=== PATIENT | female | born 1985 | race Asian ===

== ENCOUNTER 2017-04-21 22:20 | Emergency (ER) | payer OTHER ==
[~2017-04-21] VITALS: Ht 152.4 cm; Wt 68.0 kg
[~2017-04-21 22:20] MED LIST: ACHYD1T PO; CYCL10TA9 PO; DCS100C PO; HYDR-3062 PO; IBP800T PO; OXYC1TAB12 PO; PRD20T PO; PREN1TAB19 PO; TRAM50TA2 PO
--- OUTSIDE RECORDS SUMMARY | 2017-04-21 22:25 | XMS REPORT | Continuity of Care Document ---
Author Author [facility] Organization [facility] Address Unknown Phone Unavailable Allergies Active Description Code Type Severity Reaction Onset Reported/Identified Relationship to Patient Clinical Status Yes No Known Drug Allergies [id number] Drug Allergy Unknown N/ A 12/15/2014 Medications Problems Date Dx Coded Attending Type Code Diagnosis Diagnosed By 12/15/2014 Ot 644.03 12/15/2014 Ot 654.23 12/28/2014 Ot 654.21 12/28/2014 Ot V04.81 12/28/2014 Ot V06.1 12/28/2014 Ot V27.0 07/27/2015 RAÚL ATKINSON Ot M67.431 07/27/2015 RAÚL ATKINSON Ot M79.601 08/05/2015 STEWART CEJA MD Ot M67.431 08/05/2015 STEWART CEJA MD Ot Z11.2 11/09/2015 STEWART CEJA MD Ot M67.431 11/09/2015 STEWART CEJA MD Ot Z01.818 Procedures Results Encounters ACCT No. Visit Date/Time Discharge Status Pt. Type Provider Facility Loc./Unit Complaint [id number] 08/05/2015 11:00:00 2014 17:25:00 DIS Outpatient STEWART CEJA MD [facility] [id number] 08/04/2015 10:46:00 2014 23:59:59 CLS Outpatient STEWART CEJA MD [facility] PREOP [id number] 07/27/2015 21:59:00 2014 23:47:00 DIS Emergency RAÚL ATKINSON [facility] ER [id number] 12/26/2014 12:05:00 Document Registration [id number] 12/15/2014 10:57:00 Document Registration
--- NOTE | 2017-04-21 22:47 | ED Upper Extremity ---
General Chief Complaint: Upper Extremity Stated Complaint: LT HAND PAIN Nursing Triage Note: c/o L hand and thumb pain x 2 weeks, denies injury Nursing Sepsis Screen: No Definite Risk Source: patient Exam Limitations: no limitations History of Present Illness Time seen by provider: 22:45 Initial Comments To ER with tenderness and pain with extension of the left thumb. This is been present for 2 weeks and she denies any known injury. She denies fevers chills or swelling. She does report that there is a lump that appeared to the IP joint of the flexor surface of the thumb but it has resolved. Onset: last week Severity: mild Pain/Injury Location: left thumb Method of Injury: unknown Modifying Factors: Worse With Movement Allergies and Home Medications Allergies Coded Allergies: No Known Drug Allergies (Unverified , 12/15/14) Home Medications No Active Prescriptions or Reported Meds Constitutional: see HPI EENTM: see HPI Respiratory: no symptoms reported Cardiovascular: no symptoms reported Genitourinary: no symptoms reported Musculoskeletal: see HPI Skin: no symptoms reported Psychiatric/Neurological: No Symptoms Reported Past Mrvfomn-Gabmrt-Yqqpte Hx Patient Social History Alcohol Use: Denies Use Recreational Drug Use: No Smoking Status: Never a Smoker Recent Foreign Travel: No Contact w/Someone Who Travel: No Recent Infectious Disease Expo: No Immunizations Up To Date Date of Influenza Vaccine: Jul 06, 2015 Seasonal Allergies Seasonal Allergies: No Surgeries HX Surgeries: Yes Surgeries: Section Respiratory Hx Respiratory Disorders: No Cardiovascular Hx Cardiac Disorders: No Neurological Hx Neurological Disorders: No Reproductive System Hx Reproductive Disorders: No Genitourinary Hx Genitourinary Disorders: No Gastrointestinal Hx Gastrointestinal Disorders: No Musculoskeletal Hx Musculoskeletal Disorders: No Endocrine Hx Endocrine Disorders: No HEENT HX ENT Disorders: No Cancer Hx Cancer: No Psychosocial Hx Psychiatric Problems: No Integumentary HX Skin/Integumentary Disorder: No Blood Transfusions Hx Blood Disorders: No Adverse Reaction to a Blood Tr: No Family Medical History Family Medial History: Cardiovascular disease Diabetes mellitus 19 MOTHER Hypertension 19 FATHER No Family History of: AIDS Abdominal aortic aneurysm Julian's disease Alcoholism Alzheimer's disease Aphasia Arthritis Asthma Cancer of mouth Cataracts Colon cancer Completed stroke Congenital disease Congenital heart disease Coronary thrombosis Cystic fibrosis Deafness or hearing loss Dementia Drug abuse Dysphasia Fibrocystic disease of breast Gastroenteritis Glaucoma Headache disorder Hypercholesterolemia Infertility Kidney disease Myocardial infarction Neoplasm Not obtainable due to adoption Osteoporosis Parkinson's disease Prostate cancer Psychosocial problem Respiratory disorder Seizure disorder Severe allergy Thyroid disease Tuberculosis Visual disorder Physical Exam Vital Signs Vital Sign - Last 12Hours 04/21/17 22:30 Temp 98.9 Pulse 100 Resp 18 B/P (MAP) 132/93 Pulse Ox 98 Capillary Refill : Less Than 3 Seconds General Appearance: WD/WN, no apparent distress HEENT: PERRL/EOMI, normal ENT inspection Neck: non-tender, full range of motion Respiratory: no respiratory distress, no accessory muscle use Gastrointestinal: normal bowel sounds, non tender, soft Shoulder: normal inspection, non-tender Elbow/Forearm: normal inspection, non-tender, Left Wrist: Yes normal inspection, Yes no evidence of injury Hand: Left, soft tissue tenderness (there is no deformity or joint laxity of the thumb. There is no swelling erythema or ecchymosis. With extension of the thumb she complains of pain to the radial side of the thenar eminence.) Neurologic/Psychiatric: alert, normal mood/affect, oriented x 3 Skin: normal color, warm/dry Progress/Results/Core Measures Results/Orders My Orders Orders - NAOMI MCKEON APRN Hand, Left, 3 Views (04/21/17 22:45) Vital Signs/I&O Vital Sign - Last 12Hours 04/21/17 22:30 Temp 98.9 Pulse 100 Resp 18 B/P (MAP) 132/93 Pulse Ox 98 Blood Pressure Mean: 106 Departure Impression Impression: Primary Impression: Tenosynovitis of thumb Disposition: 01 HOME, SELF-CARE Condition: Stable Departure-Patient Inst. Decision time for Depature: 22:55 Referrals: RIMA RIOS MD, JONATHAN MD IPSEN, BRIAN J MD NO,LOCAL PHYSICIAN (PCP) Primary Care Physician ELO ZAVALA MD, MICHAEL P MD Patient Instructions: NO INSTRUCTIONS GIVEN Add. Discharge Instructions: 1. Follow-up with one of the orthopedic surgeons listed if your pain does not improve in 2 weeks 2. Anti-inflammatories as directed 3. Wear the splint as directed at all times except when showering for the next 2 weeks All discharge instructions reviewed with patient and/or family. Voiced understanding. Scripts Naproxen (Naprosyn) 500 Mg Tablet 500 MG PO BID Y for PAIN-MODERATE, #30 TAB Prov: NAOMI MCKEON APRN 04/21/17 NAOMI MCKEON APRN Apr 21, 2017 22:47
[2017-04-21] MEDS ORDERED: NAPR500T PO (22:57)
[2017-04-21 23:10] VITALS: BP 132/93
--- NOTE | 2017-04-22 06:48 | Diagnostic Imaging Report ---
INDICATION: Left hand pain. FINDINGS: 3 views show no fractures or dislocations. No significant degenerative changes noted. Articulating surfaces are smooth. Radiocarpal joint in good alignment. No evidence of osteonecrosis. IMPRESSION: Normal left hand. Dictated by: Dictated on workstation # [id number]
== END 2017-04-21 23:12 | disposition home or self-care (01) ==
LOC: EDUNIT# 22:20 → ER 22:22
DX: M79.645 Pain in left finger(s) (principal)
CPT/HCPCS: 73130; 99282

== ENCOUNTER 2017-08-17 22:26 | Emergency (ER) | payer OTHER ==
[~2017-08-17] VITALS: Ht 160 cm; Wt 72.6 kg
[~2017-08-17 22:26] MED LIST changes: +NAPR500T PO
[2017-08-17] MEDS ORDERED: FAMOTIDINE 20MG/2ML IV (PEPCID) IV STA (23:37)
[2017-08-17] MEDS ORDERED: LACTATED RINGERS 1,000 ML IV ONE (23:37)
[2017-08-17] MEDS ORDERED: ONDANSETRON 4 MG/2 ML (SDV) Z0FRAN IVP ONE (23:45)
[2017-08-17] MEDS ORDERED: NS 100 ML (IVPB) BAG IV ONE (23:45)
[2017-08-17] MEDS ORDERED: IOHEXOL 350 MG/ML 100 ML (OMNIPAQUE 350) VIAL IV ONE (23:45)
[2017-08-18 00:03] LABS: BILIRUBIN,URINE NEGATIVE (NEGATIVE); KETONES,URINE NEGATIVE (NEGATIVE); LEUKOCYTE ESTERASE ,URINE 2+ (NEGATIVE); NITRITE,URINE NEGATIVE (NEGATIVE); PH,URINE 6 (5-9); PROTEIN,URINE NEGATIVE (NEGATIVE); UROBILINOGEN,URINE NORMAL (NORMAL)
[2017-08-18 00:07] LABS: WBC,URINE 0-2 /HPF
[2017-08-18 00:10] LABS: BASOPHILS # (AUTO) 0.1 10^3/uL (0.0-0.1); BASOPHILS % (AUTO) 1 % (0-10); EOSINOPHILS # (AUTO) 0.1 10^3/uL (0.0-0.3); EOSINOPHILS % (AUTO) 2 % (0-10); LYMPHOCYTES # (AUTO) 4.1 X 10^3 (1.0-4.0); LYMPHOCYTES % (AUTO) 43 % (12-44); MEAN CORPUSCULAR HEMOGLOBIN 29 PG (25-34); MEAN CORPUSCULAR HGB CONC 35 G/DL (32-36); MEAN CORPUSCULAR VOLUME 81 FL (80-99); MEAN PLATELET VOLUME 8.7 FL (7.4-10.4); MONOCYTES # (AUTO) 0.6 X 10^3 (0.0-1.0); MONOCYTES % (AUTO) 6 % (0-12); NEUTROPHILS # (AUTO) 4.5 X 10^3 (1.8-7.8); NEUTROPHILS % (AUTO) 48 % (42-75); PLATELET COUNT 435 10^3/uL (130-400); RED BLOOD COUNT 4.96 10^6/uL (4.35-5.85); RED CELL DISTRIBUTION WIDTH 12.9 % (10.0-14.5); WHITE BLOOD COUNT 9.3 10^3/uL (4.3-11.0)
[2017-08-18 00:32] LABS: ALANINE AMINOTRANSFERASE 15 U/L (0-55); ALBUMIN 4.1 GM/DL (3.2-4.5); AMYLASE 76 U/L (25-125); ANION GAP 8 MMOL/L (5-14); ASPARTATE AMINO TRANSFERASE 17 U/L (5-34); BILIRUBIN,TOTAL 0.5 MG/DL (0.1-1.0); BLOOD UREA NITROGEN 8 MG/DL (7-18); BUN/CREATININE RATIO 11; CALCIUM 8.9 MG/DL (8.5-10.1); CARBON DIOXIDE 24 MMOL/L (21-32); CHLORIDE 105 MMOL/L (98-107); CREATININE SERUM 0.73 MG/DL (0.60-1.30); GFR ESTIMATED > 60; GLUCOSE 94 MG/DL (70-105); LIPASE 60 U/L (8-78); POTASSIUM 3.4 MMOL/L (3.6-5.0); SODIUM 137 MMOL/L (135-145)
[2017-08-18] MEDS ORDERED: PROMETHAZINE INJ 25 MG/ML (PHENERGAN) AMP IVP ONE (02:15)
[2017-08-18] MEDS ORDERED: diphenhydrAMINE 50 MG/ML INJ (BENADRYL) IVP ONE (02:15)
[2017-08-18] MEDS ORDERED: HYOSCYAMINE 0.125 MG (LEVSIN) TAB PO ONE (02:15)
[2017-08-18] MEDS ORDERED: HYOS0.1283 SL (02:23)
[2017-08-18] MEDS ORDERED: ONDA4TAB8 PO (02:23)
--- NOTE | 2017-08-18 02:23 | ED Abdominal Pain ---
General Chief Complaint: Abdominal/GI Problems Stated Complaint: ABD PAIN Nursing Triage Note: ABD PAIN BEGAN AT 2100 THIS EVENING. Sepsis Screen: No Definite Risk Allergies and Home Medications Allergies Coded Allergies: No Known Drug Allergies (Unverified , 12/15/14) Home Medications Hyoscyamine Sulfate 0.125 Mg Tab.subl, 1-2 TAB SL Q4H, #15 Prescribed by: DIMITRY COLON on 08/18/17 0223 Naproxen 500 Mg Tablet, 500 MG PO BID PRN for PAIN-MODERATE, #30 Prescribed by: NAOMI MCKEON on 04/21/17 2257 Ondansetron 4 Mg Tab.rapdis, 4 MG PO Q4H, #10 Prescribed by: DIMITRY COLON on 08/18/17 0223 Past Mfklyad-Wtynqh-Uiwpcv Hx Patient Social History Alcohol Use: Denies Use Recreational Drug Use: No Smoking Status: Never a Smoker Recent Foreign Travel: No Contact w/Someone Who Travel: No Recent Infectious Disease Expo: No Recent Hopitalizations: No Immunizations Up To Date Date of Influenza Vaccine: Jul 06, 2015 Seasonal Allergies Seasonal Allergies: No Surgeries History of Surgeries: Yes Surgeries: Section Respiratory History of Respiratory Disorde: No Cardiovascular History of Cardiac Disorders: No Neurological History of Neurological Disord: No Reproductive System : No Last Menstrual Period: Jul 27, 2017 Hx Reproductive Disorders: No Genitourinary History of Genitourinary Disor: No Gastrointestinal History of Gastrointestinal Di: No Musculoskeletal History of Musculoskeletal Dis: No Endocrine History of Endocrine Disorders: No HEENT History of HEENT Disorders: No Cancer History of Cancer: No Psychosocial History of Psychiatric Problem: No Integumentary History of Skin or Integumenta: No Blood Transfusions History of Blood Disorders: No Adverse Reaction to a Blood Tr: No Family Medical History Family Medial History: Cardiovascular disease Diabetes mellitus 19 MOTHER Hypertension 19 FATHER No Family History of: AIDS Abdominal aortic aneurysm Alan's disease Alcoholism Alzheimer's disease Aphasia Arthritis Asthma Cancer of mouth Cataracts Colon cancer Completed stroke Congenital disease Congenital heart disease Coronary thrombosis Cystic fibrosis Deafness or hearing loss Dementia Drug abuse Dysphasia Fibrocystic disease of breast Gastroenteritis Glaucoma Headache disorder Hypercholesterolemia Infertility Kidney disease Myocardial infarction Neoplasm Not obtainable due to adoption Osteoporosis Parkinson's disease Prostate cancer Psychosocial problem Respiratory disorder Seizure disorder Severe allergy Thyroid disease Tuberculosis Visual disorder Physical Exam Vital Signs VS - Last 72 Hours, by Label 08/17/17 23:21 Temp 98.1 Pulse 78 Resp 20 B/P (MAP) 120/81 Pulse Ox 98 O2 Delivery Room Air Capillary Refill : Less Than 3 Seconds Progress/Results/Core Measures Results/Orders Lab Results Laboratory Tests Test 08/17/17 23:30 08/17/17 23:55 Range/Units Urine Color YELLOW Urine Clarity CLEAR Urine pH 6 5-9 Urine Specific Continental 1.010 L 1.016-1.022 Urine Protein NEGATIVE NEGATIVE Urine Glucose (UA) NEGATIVE NEGATIVE Urine Ketones NEGATIVE NEGATIVE Urine Nitrite NEGATIVE NEGATIVE Urine Bilirubin NEGATIVE NEGATIVE Urine Urobilinogen NORMAL NORMAL MG/DL Urine Leukocyte Esterase 2+ H NEGATIVE Urine RBC (Auto) NEGATIVE NEGATIVE Urine RBC NONE /HPF Urine WBC 0-2 /HPF Urine Squamous Epithelial Cells 10-25 H /HPF Urine Crystals NONE /LPF Urine Bacteria TRACE /HPF Urine Casts NONE /LPF Urine Mucus NEGATIVE /LPF Urine Culture Indicated NO White Blood Count 9.3 4.3-11.0 10^3/uL Red Blood Count 4.96 4.35-5.85 10^6/uL Hemoglobin 14.2 11.5-16.0 G/DL Hematocrit 40 35-52 % Mean Corpuscular Volume 81 80-99 FL Mean Corpuscular Hemoglobin 29 25-34 PG Mean Corpuscular Hemoglobin Concent 35 32-36 G/DL Red Cell Distribution Width 12.9 10.0-14.5 % Platelet Count 435 H 130-400 10^3/uL Mean Platelet Volume 8.7 7.4-10.4 FL Neutrophils (%) (Auto) 48 42-75 % Lymphocytes (%) (Auto) 43 12-44 % Monocytes (%) (Auto) 6 0-12 % Eosinophils (%) (Auto) 2 0-10 % Basophils (%) (Auto) 1 0-10 % Neutrophils # (Auto) 4.5 1.8-7.8 X 10^3 Lymphocytes # (Auto) 4.1 H 1.0-4.0 X 10^3 Monocytes # (Auto) 0.6 0.0-1.0 X 10^3 Eosinophils # (Auto) 0.1 0.0-0.3 10^3/uL Basophils # (Auto) 0.1 0.0-0.1 10^3/uL Sodium Level 137 135-145 MMOL/L Potassium Level 3.4 L 3.6-5.0 MMOL/L Chloride Level 105 98-107 MMOL/L Carbon Dioxide Level 24 21-32 MMOL/L Anion Gap 8 5-14 MMOL/L Blood Urea Nitrogen 8 7-18 MG/DL Creatinine 0.73 0.60-1.30 MG/DL Estimat Glomerular Filtration Rate > 60 BUN/Creatinine Ratio 11 Glucose Level 94 70-105 MG/DL Calcium Level 8.9 8.5-10.1 MG/DL Total Bilirubin 0.5 0.1-1.0 MG/DL Aspartate Amino Transf (AST/SGOT) 17 5-34 U/L Alanine Aminotransferase (ALT/SGPT) 15 0-55 U/L Alkaline Phosphatase 78 40-136 U/L Total Protein 7.0 6.4-8.2 GM/DL Albumin 4.1 3.2-4.5 GM/DL Amylase Level 76 25-125 U/L Lipase 60 8-78 U/L Serum Test, Qualitative NEGATIVE NEGATIVE My Orders Orders - DIMITRY COLON DO Saline Lock/Iv-Start (08/17/17 23:37) Amylase (08/17/17 23:37) Cbc With Automated Diff (08/17/17 23:37) Comprehensive Metabolic Panel (08/17/17 23:37) Hcg,Qualitative Serum (08/17/17 23:37) Lipase (08/17/17 23:37) Ua Culture If Indicated (08/17/17 23:37) Ondansetron Injection (Zofran Injectio (08/17/17 23:45) Famotidine Injection (Pepcid Injection) (08/17/17 23:37) Saline Lock/Iv-Start (08/17/17 23:37) Lactated Ringers (Lr 1000 Ml Iv Solution (08/17/17 23:37) Iohexol Injection (Omnipaque 350 Mg/Ml 1 (08/17/17 23:45) Ns (Ivpb) (Sodium Chloride 0.9% Ivpb Bag (08/17/17 23:45) Pharmacy Communication (Pharmacy Communi (08/17/17 23:44) Ct Abdomen/Pelvis W (08/18/17 00:01) Hyoscyamine Sl Tablet (Levsin Sl Tablet) (08/18/17 02:15) Promethazine Injection (Phenergan Injec (08/18/17 02:15) Diphenhydramine Injection (Benadryl Inje (08/18/17 02:15) Medications Given in ED Current Medications Medications Dose Ordered Sig/Genevieve Route Start Time Stop Time Status Last Admin Dose Admin Diphenhydramine HCl 25 mg ONCE ONCE IVP 08/18/17 02:15 08/18/17 02:16 DC 08/18/17 02:18 25 MG Hyoscyamine Sulfate 0.25 mg ONCE ONCE PO 08/18/17 02:15 08/18/17 02:16 DC 08/18/17 02:20 0.25 MG Iohexol 100 ml ONCE ONCE IV 08/17/17 23:45 08/17/17 23:46 DC 08/18/17 00:57 100 ML Lactated Ringer's 1,000 ml @ 0 mls/hr Q0M ONCE IV 08/17/17 23:37 08/17/17 23:40 DC 08/17/17 23:57 0 MLS/HR Ondansetron HCl 4 mg ONCE ONCE IVP 08/17/17 23:45 08/17/17 23:46 DC 08/17/17 23:57 4 MG Promethazine HCl 25 mg ONCE ONCE IVP 08/18/17 02:15 08/18/17 02:16 DC 08/18/17 02:20 25 MG Sodium Chloride 100 ml ONCE ONCE IV 08/17/17 23:45 08/17/17 23:46 DC 08/18/17 00:57 80 ML Vital Signs/I&O Vital Sign - Last 12Hours 08/17/17 23:21 Temp 98.1 Pulse 78 Resp 20 B/P (MAP) 120/81 Pulse Ox 98 O2 Delivery Room Air Blood Pressure Mean: [address] ABDOMEN/PELVIS--NO ACUTE PROCESS, 1.6 CM RIGHT OVARIAN CYST--PER [facility] VIA FAX @ [phone] Reviewed: Reviewed by Me Departure Impression Impression: Primary Impression: Acute gastroenteritis Disposition: 01 HOME, SELF-CARE Condition: Stable Departure-Patient Inst. Referrals: [facility] (PCP/Family) Primary Care Physician Patient Instructions: Viral Gastroenteritis, Adult (DC) Add. Discharge Instructions: CLEAR LIQUIDS --WATER, BROTH, JELLO, GATORADE IF YOU ARE FEELING BETTER TOMORROW, ADD BRATS DIET TO CLEAR LIQUIDS--BANANAS, RICE, APPLESAUCE, TOAST, SALTINES FOLLOW UP WITH [facility] IN 1-2 DAYS IF NO BETTER RETURN TO ER IF WORSE All discharge instructions reviewed with patient and/or family. Voiced understanding. Scripts Hyoscyamine Sulfate (Levsin-Sl) 0.125 Mg Tab.subl 1-2 TAB SL Q4H for Abdominal Pain, #15 TAB Prov: DIMITRY COLON DO 08/18/17 Ondansetron (Zofran Odt) 4 Mg Tab.rapdis 4 MG PO Q4H for Nausea/Vomiting, #10 TAB Prov: DIMITRY COLON DO 08/18/17 Work/School Note: School/Childcare Release Date Seen in the Emergency Department: Aug 17, 2017 DIMITRY COLON DO Aug 18, 2017 02:23
[2017-08-18 03:30] VITALS: BP 136/69
--- NOTE | 2017-08-18 07:03 | Diagnostic Imaging Report ---
PROCEDURE: CT abdomen and pelvis with contrast. TECHNIQUE: Multiple contiguous axial images were obtained through the abdomen and pelvis after administration of intravenous contrast. INDICATION: Abdominal pain for three hours. COMPARISON STUDIES: None. FINDINGS: The lung bases are clear. There is diffuse fatty metamorphosis of the liver with no focal abnormalities. The gallbladder is contracted. The spleen, pancreas, adrenal glands and kidneys are normal. The vascular structures appear normal. The uterus and adnexal structures appear unremarkable. Small ovarian cyst are present. The appendix and bowel loops appear normal. Stomach is decompressed. There is no ascites, free air or abnormal adenopathy. Osseous structures are normal. IMPRESSION: There is fatty infiltration of liver with no acute findings. The findings agree with [facility] report. Dictated by: Dictated on workstation # [id number]
--- OUTSIDE RECORDS SUMMARY | 2017-08-18 08:58 | XMS REPORT | Continuity of Care Document ---
Author Author [facility] Organization [facility] Address Unknown Phone Unavailable Allergies Active Description Code Type Severity Reaction Onset Reported/Identified Relationship to Patient Clinical Status Yes No Known Drug Allergies [id number] Drug Allergy Unknown N/ A 12/15/2014 Medications Problems Date Dx Coded Attending Type Code Diagnosis Diagnosed By 12/15/2014 Ot 644.03 THRT LENIN LABOR-ANTEPART 12/15/2014 Ot 654.23 PREV DELIVERY, ANTEPARTUM COND 12/28/2014 Ot 654.21 PREV DELIVRY W/ OR W/O MENT ANT 12/28/2014 Ot V04.81 ND FOR PROPHYLACTIC VACCIN AND INOCULATI 12/28/2014 Ot V06.1 [id number], COMBINED [ 12/28/2014 Ot V27.0 DELIVER-SINGLE LIVEBORN 07/27/2015 RAÚL ATKINSON Ot M67.431 GANGLION, RIGHT WRIST 07/27/2015 RAÚL ATKINSON Ot M79.601 PAIN IN RIGHT ARM 08/05/2015 STEWART CEJA MD Ot M67.431 GANGLION, RIGHT WRIST 08/05/2015 STEWART CEJA MD Ot Z11.2 ENCOUNTER FOR SCREENING FOR OTHER BACTER 11/09/2015 STEWART CEJA MD Ot M67.431 11/09/2015 STEWART CEJA MD Ot Z01.818 04/21/2017 STEWART CEJA MD Ot M67.431 GANGLION, RIGHT WRIST 04/21/2017 STEWART CEJA MD Ot Z01.818 ENCOUNTER FOR OTHER PREPROCEDURAL EXAMIN 04/21/2017 NAOMI MCKEON APRN Ot M65.9 SYNOVITIS AND TENOSYNOVITIS, UNSPECIFIED 04/21/2017 NAOMI MCKEON POCKET MARKER Ot M79.645 PAIN IN LEFT FINGER(S) 04/21/2017 STEWART CEJA MD Ot M67.431 GANGLION, RIGHT WRIST 04/21/2017 STEWART CEJA MD Ot Z01.818 ENCOUNTER FOR OTHER PREPROCEDURAL EXAMIN 04/25/2017 NAOMI MCKEON APRN Ot M65.9 SYNOVITIS AND TENOSYNOVITIS, UNSPECIFIED 04/25/2017 NAOMI MCKEON APRN Ot M79.645 PAIN IN LEFT FINGER(S) 04/26/2017 STEWART CEJA MD Ot M67.431 GANGLION, RIGHT WRIST 04/26/2017 STEWART CEJA MD Ot Z01.818 ENCOUNTER FOR OTHER PREPROCEDURAL EXAMIN 2017 STEWART CEJA MD, Ot M67.431 GANGLION, RIGHT WRIST 2017 STEWART CEJA MD Ot Z01.818 ENCOUNTER FOR OTHER PREPROCEDURAL EXAMIN 07/19/2017 STEWART CEJA MD, Ot M67.431 GANGLION, RIGHT WRIST 07/19/2017 STEWART CEJA MD Ot Z01.818 ENCOUNTER FOR OTHER PREPROCEDURAL EXAMIN Procedures Code Description Performed By Performed On 72.9 INSTRUMENT DELIVERY NOS 12/26/2014 74.1 LOW CERVICAL 12/26/2014 Results Encounters ACCT No. Visit Date/Time Discharge Status Pt. Type Provider Facility Loc./Unit Complaint [id number] 04/21/2017 22:22:00 2016 23:12:00 DIS Emergency NAOMI MCKEON APRN [facility] ER LT HAND PAIN [id number] 08/05/2015 11:00:00 2014 17:25:00 DIS Outpatient STEWART CEJA MD [facility] SDC GANGLION CYST RIGHT WRIST [id number] 08/04/2015 10:46:00 2014 23:59:59 CLS Outpatient STEWART CEJA MD [facility] PREOP GANGLION CYST RIGHT WRIST [id number] 07/27/2015 21:59:00 2014 23:47:00 DIS Emergency RAÚL ATKINSON [facility] ER RT ARM PAIN [id number] 12/26/2014 12:05:00 Document Registration [id number] 12/15/2014 10:57:00 Document Registration
== END 2017-08-18 03:30 | disposition home or self-care (01) ==
LOC: EDUNIT# 22:26 → ER 22:27
DX: K52.9 Noninfective gastroenteritis and colitis, unspecified (principal); K76.0 Fatty (change of) liver, not elsewhere classified
CPT/HCPCS: 36415; 74177; 80053; 81000; 82150; 83690; 84703; 85025

== ENCOUNTER 2017-09-17 02:17 | Emergency (ER) | payer OTHER ==
[~2017-09-17] VITALS: Ht 160 cm; Wt 72.6 kg
[~2017-09-17 02:17] MED LIST changes: +CEFD300C3 PO; +HYOS0.1283 SL; +OMEP40CA36 PO; +ONDA4TAB8 PO; +ONDA8TAB13 PO; +SUCR1ORA5 PO
[2017-09-17] MEDS ORDERED: diphenhydrAMINE 50 MG/ML INJ (BENADRYL) IM ONE (02:45)
[2017-09-17] MEDS ORDERED: methylPREDNISolone 125 MG (Solu-MEDROL) VIAL IM ONE (02:45)
[2017-09-17] MEDS ORDERED: FAMOTIDINE 20 MG (PEPCID) TABLET PO ONE (02:45)
--- NOTE | 2017-09-17 02:50 | ED Integumentary General ---
General Chief Complaint: Allergic Reaction Stated Complaint: WHOLE BODY RASH Nursing Triage Note: GENERALIZED ITCHING SINCE 2200. UNKNOWN CAUSE Source: patient History of Present Illness Time seen by provider: 02:38 Initial Comments C/O VERY ITCHY RASH ALL OVER BODY SINCE WAKING AT 2200 LILI THINKS IS FROM SOMETHING SHE ATE AT[facility] [employer] [facility]--HAS NOT EATEN AT THIS RESTAUR[employer] BEFORE WENT TO BED, THEN WOKE UP AT 2200 WITH THIS NO SWELLING ANYWHERE NO DIFFICULTY BREATHING, SWALLOWING OR TALKING NO HISTORY OF SIMILAR HAS NOT TAKEN ANYTHING FOR SYMPTOMS 4TH VISIT IN 2017--VARIOUS COMPLAINTS [facility] STUDENT Allergies and Home Medications Allergies Coded Allergies: No Known Drug Allergies (Unverified , 12/15/14) Home Medications Famotidine 40 Mg Tablet, 40 MG PO DAILY, #7 Prescribed by: DIMITRY COLON on 09/17/171 Prednisone 10 Mg Tab, 40 MG PO DAILY, #12 Prescribed by: DIMITRY COLON on 09/17/17250 Constitutional: no symptoms reported EENTM: no symptoms reported Respiratory: no symptoms reported Cardiovascular: no symptoms reported Gastrointestinal: heartburn Genitourinary: no symptoms reported Musculoskeletal: no symptoms reported Skin: see HPI, pruritus, rash Psychiatric/Neurological: Anxiety Endocrine: No Symptoms Reported Hematologic/Lymphatic: No Symptoms Reported Past Odffhxs-Pdzlmi-Vfmelt Hx Patient Social History Alcohol Use: Occasionally Uses Recreational Drug Use: No Smoking Status: Never a Smoker 2nd Hand Smoke Exposure: No Recent Foreign Travel: No Contact w/Someone Who Travel: No Recent Infectious Disease Expo: No Recent Hopitalizations: No Immunizations Up To Date Tetanus Booster (TDap): Unknown PED Vaccines UTD: Yes Date of Influenza Vaccine: Jul 06, 2015 Seasonal Allergies Seasonal Allergies: No Surgeries History of Surgeries: Yes Surgeries: Section Respiratory History of Respiratory Disorde: No Cardiovascular History of Cardiac Disorders: No Neurological History of Neurological Disord: No Reproductive System : No Hx Reproductive Disorders: No Female Reproductive Disorders: Denies Genitourinary History of Genitourinary Disor: No Gastrointestinal History of Gastrointestinal Di: Yes Gastrointestinal Disorders: Gastroesophageal Reflux Musculoskeletal History of Musculoskeletal Dis: No Endocrine History of Endocrine Disorders: No HEENT History of HEENT Disorders: No Cancer History of Cancer: No Psychosocial History of Psychiatric Problem: No Integumentary History of Skin or Integumenta: No Blood Transfusions History of Blood Disorders: No Adverse Reaction to a Blood Tr: No Family Medical History Significant Family History: No Pertinent Family Hx Family Medial History: Cardiovascular disease Diabetes mellitus 19 MOTHER Hypertension 19 FATHER No Family History of: AIDS Abdominal aortic aneurysm Alan's disease Alcoholism Alzheimer's disease Aphasia Arthritis Asthma Cancer of mouth Cataracts Colon cancer Completed stroke Congenital disease Congenital heart disease Coronary thrombosis Cystic fibrosis Deafness or hearing loss Dementia Drug abuse Dysphasia Fibrocystic disease of breast Gastroenteritis Glaucoma Headache disorder Hypercholesterolemia Infertility Kidney disease Myocardial infarction Neoplasm Not obtainable due to adoption Osteoporosis Parkinson's disease Prostate cancer Psychosocial problem Respiratory disorder Seizure disorder Severe allergy Thyroid disease Tuberculosis Visual disorder Physical Exam Vital Signs Vital Sign - Last 12Hours 09/17/17 02:25 Temp 98.2 Pulse 89 Resp 18 B/P (MAP) 125/79 Pulse Ox 97 O2 Delivery Room Air Capillary Refill : Less Than 3 Seconds General Appearance: WD/WN, other (ANXIOUS, CONSTANTLY SCRATCHING ENTIRE BODAY) HEENT: PERRL/EOMI, normal ENT inspection, pharynx normal Neck: normal inspection Cardiovascular: regular rate, rhythm, no murmur Respiratory: normal breath sounds, no respiratory distress, no accessory muscle use Gastrointestinal: non tender, soft Extremities: normal inspection, no pedal edema Neurologic/Psychiatric: 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 FACE/SCALP AND HANDS/FEET SPARED. ) Progress/Results/Core Measures Results/Orders My Orders Orders - DIMITRY COLON DO Diphenhydramine Injection (Benadryl Inje (09/17/17 02:45) Methylprednisolone Sod Succ (Solu-Medrol (09/17/17 02:45) Famotidine Tablet (Pepcid Tablet) (09/17/17 02:45) Medications Given in ED Current Medications Medications Dose Ordered Sig/Genevieve Route Start Time Stop Time Status Last Admin Dose Admin Diphenhydramine HCl 50 mg ONCE ONCE IM 09/17/17 02:45 09/17/17 02:46 DC 09/17/17 02:50 50 MG Famotidine 40 mg ONCE ONCE PO 09/17/17 02:45 09/17/17 02:46 DC 09/17/17 02:49 40 MG Methylprednisolone Sodium Succinate 125 mg ONCE ONCE IM 09/17/17 02:45 09/17/17 02:46 DC 09/17/17 02:50 125 MG Vital Signs/I&O Vital Sign - Last 12Hours 09/17/17 09/17/17 02:25 03:06 Temp 98.2 98.2 Pulse 89 89 Resp 18 18 B/P (MAP) 125/79 Pulse Ox 97 97 O2 Delivery Room Air Blood Pressure Mean: 94 Progress Note : Progress Note ITCHING EASED AT DISMISSAL Departure Impression Impression: Primary Impression: ALLERGIC REACTION TO UNKNOWN SUBSTANCE Disposition: HOME, SELF-CARE Condition: Stable Departure-Patient Inst. Referrals: [facility] (PCP/Family) Primary Care Physician Patient Instructions: Food Allergy, Hives (DC), Skin Rash (DC) Add. Discharge Instructions: HOME, REST HYDROCORTISONE CREAM + BENADRYL CREAM TO RASH 3-4 TIMES A DAY LOTS OF CLEAR LIQUIDS CLARITIN 10 MG IN AM, BENADRYL 50 MG IN PM NEEDED FOR RASH AND ITCHING AVOID ANY NEW RESTAURANTS, FOODS, DRINKS, PRODUCTS, ETC. FOLLOW UP WITH [facility] ON MONDAY IF NO BETTER All discharge instructions reviewed with patient and/or family. Voiced understanding. Scripts Famotidine (Pepcid) 40 Mg Tablet 40 MG PO DAILY, #7 TAB Prov: DIMITRY COLON DO 09/17/17 Prednisone (Prednisone) 10 Mg Tab 40 MG PO DAILY, #12 TAB Prov: DIMITRY COLON DO 09/17/17 DIMITRY COLON DO Sep 17, 2017 02:50
[2017-09-17] MEDS ORDERED: FAMO40TA72 PO (02:51)
[2017-09-17] MEDS ORDERED: PRD10T PO (02:51)
[2017-09-17 03:06] VITALS: BP 125/79
== END 2017-09-17 03:06 | disposition home or self-care (01) ==
LOC: EDUNIT# 02:17 → ER 02:19
DX: T78.40XA Allergy, unspecified, initial encounter (principal); K21.9 Gastro-esophageal reflux disease without esophagitis; Z87.59 Personal history of other complications of pregnancy, childbirth and the puerperium
CPT/HCPCS: 99284

== ENCOUNTER 2017-09-22 21:46 | Emergency (ER) | payer OTHER ==
[~2017-09-22] VITALS: Ht 160 cm; Wt 68.0 kg
[~2017-09-22 21:46] MED LIST changes: +FAMO40TA72 PO; +PRD10T PO
[2017-09-22] MEDS ORDERED: FAMOTIDINE 20 MG (PEPCID) TABLET PO ONE (22:15)
[2017-09-22] MEDS ORDERED: ANTACID SUSP 30 ML UDC (MYLANTA) PO ONE (22:15)
[2017-09-22] MEDS ORDERED: diphenhydrAMINE 50 MG/ML INJ (BENADRYL) IM ONE (22:15)
[2017-09-22] MEDS ORDERED: LIDOCAINE 2% VISCOUS 15 ML UDC PO ONE (22:15)
[2017-09-22] MEDS ORDERED: methylPREDNISolone 125 MG (Solu-MEDROL) VIAL IM ONE (22:15)
[2017-09-22] MEDS ORDERED: PRD20T PO (22:23)
--- NOTE | 2017-09-22 22:23 | ED Integumentary General ---
General Chief Complaint: Allergic Reaction Stated Complaint: ITCHING/RASH Nursing Triage Note: Patient advises she was seen monday for an allergic reaction. She advises she was told it may be a possible food allergy. She advises she took the prescribed medication from monday prior to her arrival to the ER but is unsure what it is called. Source: patient Exam Limitations: no limitations History of Present Illness Time seen by provider: 22:10 Initial Comments Patient presents to ER by private conveyance with a chief complaint that she is been seen in the ER Monday about a week ago after eating some Vietnamese food had shrimp in it and she started having itching throat swelling. She was given some steroid injections and sent home on a couple days of steroids but after that she says the itching on her skin continued. She is using lotion but does not help. She has not use any Benadryl or other antihistamines. She is concerned that her itching is still irritating her. She has not changed any detergents, soaps, shampoos, lotions, food choices. No loss around her has any similar rash. She has no problem breathing now and has no swelling in her throat , tongue or mouth. Allergies and Home Medications Allergies Coded Allergies: No Known Drug Allergies (Unverified , 12/15/14) Home Medications Famotidine 40 Mg Tablet, 40 MG PO DAILY, #7 Prescribed by: DIMITRY COLON on 09/17/17 0251 Prednisone 10 Mg Tab, 40 MG PO DAILY, #12 Prescribed by: DIMITRY COLON on 09/17/17 0251 Prednisone 20 Mg Tab, 40 MG PO DAILY for 5 Days, #10 Ref 0 Prescribed by: CON VELAZQUEZ on 09/22/173 Constitutional: No chills, No diaphoresis EENTM: No hearing loss, No ear pain, No mouth pain, No mouth swelling, No nose congestion, No throat pain, No throat swelling Respiratory: No cough, No short of breath, No wheezing Gastrointestinal: No abdominal pain, No nausea Genitourinary: No discharge, No dysuria Skin: see HPI, pruritus, rash Past Wailxie-Xgqlrw-Johmos Hx Patient Social History Alcohol Use: Occasionally Uses Recreational Drug Use: No Smoking Status: Never a Smoker 2nd Hand Smoke Exposure: No Recent Foreign Travel: No Contact w/Someone Who Travel: No Recent Infectious Disease Expo: No Recent Hopitalizations: No Physical Abuse: No Sexual Abuse: No Immunizations Up To Date Tetanus Booster (TDap): Unknown PED Vaccines UTD: Yes Date of Influenza Vaccine: Jul 06, 2015 Seasonal Allergies Seasonal Allergies: No Surgeries History of Surgeries: Yes Surgeries: Section Respiratory History of Respiratory Disorde: No Cardiovascular History of Cardiac Disorders: No Neurological History of Neurological Disord: No Reproductive System Hx Reproductive Disorders: No Female Reproductive Disorders: Denies Genitourinary History of Genitourinary Disor: No Gastrointestinal History of Gastrointestinal Di: Yes Gastrointestinal Disorders: Gastroesophageal Reflux Musculoskeletal History of Musculoskeletal Dis: No Endocrine History of Endocrine Disorders: No HEENT History of HEENT Disorders: No Cancer History of Cancer: No Psychosocial History of Psychiatric Problem: No Suicide Risk Score: 0 Integumentary History of Skin or Integumenta: No Blood Transfusions History of Blood Disorders: No Adverse Reaction to a Blood Tr: No Family Medical History Significant Family History: No Pertinent Family Hx Family Medial History: Cardiovascular disease Diabetes mellitus 19 MOTHER Hypertension 19 FATHER No Family History of: AIDS Abdominal aortic aneurysm Boundary's disease Alcoholism Alzheimer's disease Aphasia Arthritis Asthma Cancer of mouth Cataracts Colon cancer Completed stroke Congenital disease Congenital heart disease Coronary thrombosis Cystic fibrosis Deafness or hearing loss Dementia Drug abuse Dysphasia Fibrocystic disease of breast Gastroenteritis Glaucoma Headache disorder Hypercholesterolemia Infertility Kidney disease Myocardial infarction Neoplasm Not obtainable due to adoption Osteoporosis Parkinson's disease Prostate cancer Psychosocial problem Respiratory disorder Seizure disorder Severe allergy Thyroid disease Tuberculosis Visual disorder Physical Exam Vital Signs Vital Sign - Last 12Hours 09/22/17 22:09 Temp 98.4 Pulse 86 Resp 14 B/P (MAP) 137/95 (109) Pulse Ox 98 O2 Delivery Room Air Capillary Refill : Less Than 3 Seconds General Appearance: WD/WN, mild distress HEENT: PERRL/EOMI, pharynx normal Neck: non-tender, supple, normal inspection Cardiovascular: normal peripheral pulses, regular rate, rhythm, no edema Respiratory: chest non-tender, lungs clear, normal breath sounds Extremities: no pedal edema, normal capillary refill Neurologic/Psychiatric: alert, oriented x 3 Skin: rash (fine erythematous rash with abrasions and mild excoriations on the anterior portion of her bilateral upper extremities. Spares the face, soles, palms. Some on the trunk and neck.) Progress/Results/Core Measures Results/Orders My Orders Orders - CAROLINE,CON J Diphenhydramine Injection (Benadryl Inje (09/22/17 22:15) Methylprednisolone Sod Succ (Solu-Medrol (09/22/17 22:15) Famotidine Tablet (Pepcid Tablet) (09/22/17 22:15) Lidocaine 2% Viscous 15 Ml (Xylocaine Vi (09/22/17 22:15) Antacid Suspension (Mylanta Suspension (09/22/17 22:15) Medications Given in ED Current Medications Medications Dose Ordered Sig/Genevieve Route Start Time Stop Time Status Last Admin Dose Admin Al Hydrox/Mg Hydrox/Simethicone 30 ml ONCE ONCE PO 09/22/17 22:15 09/22/17 22:16 DC 09/22/17 22:37 30 ML Diphenhydramine HCl 50 mg ONCE ONCE IM 09/22/17 22:15 09/22/17 22:16 DC 09/22/17 22:36 50 MG Famotidine 20 mg ONCE ONCE PO 09/22/17 22:15 09/22/17 22:16 DC 09/22/17 22:37 20 MG Lidocaine HCl 15 ml ONCE ONCE PO 09/22/17 22:15 09/22/17 22:16 DC 09/22/17 22:37 15 ML Methylprednisolone Sodium Succinate 125 mg ONCE ONCE IM 09/22/17 22:15 09/22/17 22:16 DC 09/22/17 22:37 125 MG Vital Signs/I&O Vital Sign - Last 12Hours 09/22/17 22:09 Temp 98.4 Pulse 86 Resp 14 B/P (MAP) 137/95 (109) Pulse Ox 98 O2 Delivery Room Air Blood Pressure Mean: 109 Progress Note : Time: 23:02 Progress Note Patient's reflexes better after a GI cocktail. We have discussed using the Benadryl and Zyrtec as well as Pepcid as needed for acid reflux. She will also cone picker the prednisone and follow up with her primary care physician Departure Impression Impression: Primary Impression: Pruritic rash Additional Impression: Acid reflux Qualified Codes: K21.9 - Gastro-esophageal reflux disease without esophagitis Disposition: 01 HOME, SELF-CARE Condition: Improved Departure-Patient Inst. Decision time for Depature: 22:21 Referrals: [facility] (PCP/Family) Primary Care Physician Patient Instructions: Skin Rash (DC) Add. Discharge Instructions: Drink plenty of fluids. Use Claritin 10 mg daily and then Benadryl 25-50 mg every 6 hours as needed to control your itching. Use emollients such as Eucerin or Nutraderm daily after bathing. Take 2 tablets of prednisone daily for the next 5 days. Follow-up with your primary care physician or [facility] if you're not getting improvement by another 5 days. All discharge instructions reviewed with patient and/or family. Voiced understanding. Scripts Prednisone (Prednisone) 20 Mg Tab 40 MG PO DAILY for 5 Days, #10 TAB 0 Refills Prov: CON VELAZQUEZ 09/22/17 CON VELAZQUEZ Sep 22, 2017 22:23
[2017-09-22 23:10] VITALS: BP 148/84
== END 2017-09-22 23:11 | disposition home or self-care (01) ==
LOC: EDUNIT# 21:46 → ER 21:47
DX: L29.9 Pruritus, unspecified (principal); K21.9 Gastro-esophageal reflux disease without esophagitis; Z87.59 Personal history of other complications of pregnancy, childbirth and the puerperium; Z82.49 Family history of ischemic heart disease and other diseases of the circulatory system
CPT/HCPCS: 99284

== ENCOUNTER 2017-11-05 22:29 | Emergency (ER) | payer OTHER ==
[~2017-11-05 22:29] MED LIST changes: +NAPR-1071 PO; -NAPR500T PO
--- OUTSIDE RECORDS SUMMARY | 2017-11-05 22:41 | XMS REPORT | Continuity of Care Document ---
Author Author [facility] Organization [facility] Address Unknown Phone Unavailable Allergies Active Description Code Type Severity Reaction Onset Reported/Identified Relationship to Patient Clinical Status Yes No Known Drug Allergies [id number] Drug Allergy Unknown N/A 12/15/2014 Medications There is no data. Problems Date Dx Coded Attending Type Code Diagnosis Diagnosed By 12/15/2014 Ot 644.03 THRT LENIN LABOR-ANTEPART 12/15/2014 Ot 654.23 PREV DELIVERY, ANTEPARTUM COND 12/28/2014 Ot 654.21 PREV DELIVRY W/ OR W/O MENT ANT 12/28/2014 Ot V04.81 ND FOR PROPHYLACTIC VACCIN AND INOCULATI 12/28/2014 Ot V06.1 DIPHTHERIA- TETANUS-PERTUSSIS, COMBINED [ 12/28/2014 Ot V27.0 DELIVER- SINGLE LIVEBORN 07/27/2015 RAÚL ATKINSON Ot M67.431 GANGLION, [...] SYNOVITIS AND TENOSYNOVITIS, UNSPECIFIED 04/21/2017 NAOMI MCKEON JUMPBASTING ARMHOLE BASTER Ot M79.645 PAIN IN LEFT FINGER(S) 04/21/2017 STEWART CEJA MD Ot M67.431 GANGLION, RIGHT WRIST 04/21/2017 MARCIAL GONZALEZ, STEWART Demarco Ot Z01.818 ENCOUNTER FOR OTHER PREPROCEDURAL EXAMIN 04/25/2017 NAOMI MCKEON APRN Ot M65.9 SYNOVITIS AND TENOSYNOVITIS, UNSPECIFIED 04/25/2017 NAOMI MCKEON APRN Ot M79.645 PAIN IN LEFT FINGER(S) 04/26/2017 STEWART CEJA MD Ot M67.431 GANGLION, RIGHT WRIST 04/26/2017 MARCIAL GONZALEZ, STEWART Demarco Ot Z01.818 ENCOUNTER FOR OTHER PREPROCEDURAL EXAMIN 2017 STEWART CEJA MD Ot M67.431 GANGLION, RIGHT WRIST 2017 MARCIAL GONZALEZ, STEWART Demarco Ot Z01.818 ENCOUNTER FOR OTHER PREPROCEDURAL EXAMIN 07/19/2017 STEWART CEJA MD Ot M67.431 GANGLION, RIGHT WRIST 07/19/2017 MARCIAL GONZALEZ, STEWART P Ot Z01.818 ENCOUNTER FOR OTHER PREPROCEDURAL EXAMIN 08/18/2017 ISAIAH AMARO DIMITRY K Ot K52.9 NONINFECTIVE GASTROENTERITIS AND COLITIS 08/18/2017 ISAIAH AMARO DIMITRY K Ot K76.0 FATTY (CHANGE OF) LIVER, NOT ELSEWHERE C 08/18/2017 ISAIAH AMARO DIMITRY K Ot R10.84 GENERALIZED ABDOMINAL PAIN 08/23/2017 DORITA COLON DOA K Ot K52.9 NONINFECTIVE GASTROENTERITIS AND COLITIS 08/23/2017 ISAIAH AMARO DIMITRY K Ot K76.0 FATTY (CHANGE OF) LIVER, NOT ELSEWHERE C 08/23/2017 DIMITRY COLON DO K Ot R10.84 GENERALIZED ABDOMINAL PAIN 09/02/2017 STEWART CEJA MD Ot M67.431 GANGLION, RIGHT WRIST 09/02/2017 MARCIAL GONZALEZ, STEWART Demarco Ot Z01.818 ENCOUNTER FOR OTHER PREPROCEDURAL EXAMIN 09/02/2017 RAÚL ATKINSON Ot K29.20 ALCOHOLIC GASTRITIS WITHOUT BLEEDING 09/02/2017 RAÚL ATKINSON Ot N39.0 URINARY TRACT INFECTION, SITE NOT SPECIF 09/02/2017 RAÚL ATKINSON Ot R10.13 EPIGASTRIC PAIN 09/02/2017 RAÚL ATKINSON Ot Z82.49 FAMILY HX OF ISCHEM HEART DIS AND OTH DI 09/02/2017 RAÚL ATKINSON Ot Z87.59 PERSONAL HISTORY OF COMP OF PREG, CHLDBR 09/17/2017 DIMITRY COLON DO Ot K21.9 GASTRO-ESOPHAGEAL REFLUX DISEASE WITHOUT 09/17/2017 DIMITRY COLON DO Ot R21 RASH AND OTHER NONSPECIFIC SKIN ERUPTION 09/17/2017 DIMITRY COLON DO Ot T78.40XA ALLERGY, UNSPECIFIED, INITIAL ENCOUNTER 09/17/2017 ISAIAH DO DIMITRY Arnold Ot Z87.59 PERSONAL HISTORY OF COMP OF PREG, CHLDBR 09/22/2017 CON VELAZQUEZ MD Ot K21.9 GASTRO-ESOPHAGEAL REFLUX DISEASE WITHOUT 09/22/2017 CAROLINE GONZALEZ, CON Lawson Ot L29.9 PRURITUS, UNSPECIFIED 09/22/2017 CON VELAZQUEZ MD Ot Z82.49 FAMILY HX OF ISCHEM HEART DIS AND OTH DI 09/22/2017 CON VELAZQUEZ MD Ot Z87.59 PERSONAL HISTORY OF COMP OF PREG, CHLDBR 09/29/2017 CON VELAZQUEZ MD Ot K21.9 GASTRO-ESOPHAGEAL REFLUX DISEASE WITHOUT 09/29/2017 CAROLINE GONZALEZ, CON Lawson Ot L29.9 PRURITUS, UNSPECIFIED 09/29/2017 CAROLINE GONZALEZ, CON Lawson Ot Z82.49 FAMILY HX OF ISCHEM HEART DIS AND OTH DI 09/29/2017 CON VELAZQUEZ MD Ot Z87.59 PERSONAL HISTORY OF COMP OF PREG, CHLDBR Procedures Code Description Performed By Performed On 72.9 INSTRUMENT DELIVERY NOS 12/26/2014 74.1 LOW CERVICAL 12/26/2014 Results Test Result Range Complete urinalysis with reflex to culture - 08/17/17 23:30 Urine color determination YELLOW NRG Urine clarity determination CLEAR NRG Urine pH measurement by test strip 6 5-9 Specific gravity of urine by test strip 1.010 1.016- 1.022 Urine protein assay by test strip, semi-quantitative NEGATIVE NEGATIVE Urine glucose detection by automated test strip NEGATIVE NEGATIVE Erythrocytes detection in urine sediment by light microscopy NEGATIVE NEGATIVE Urine ketones detection by automated test strip NEGATIVE NEGATIVE Urine nitrite detection by test strip NEGATIVE NEGATIVE Urine total bilirubin detection by test strip NEGATIVE NEGATIVE Urine urobilinogen measurement by automated test strip (mass/volume) NORMAL NORMAL Urine leukocyte esterase detection by dipstick 2+ NEGATIVE Automated urine sediment erythrocyte count by microscopy (number/high power field) NONE NRG Automated urine sediment leukocyte count by microscopy (number/high power field ) [HPF] NRG Bacteria detection in urine sediment by light microscopy TRACE NRG Squamous epithelial cells detection in urine sediment by light microscopy 10-25 NRG Crystals detection in urine sediment by light microscopy NONE NRG Casts detection in urine sediment by light microscopy NONE NRG Mucus detection in urine sediment by light microscopy NEGATIVE NRG Complete urinalysis with reflex to culture NO NRG Complete blood count (CBC) with automated white blood cell (WBC) differential - 08/17/17 23:55 Blood leukocytes automated count (number/volume) 9.3 10*3/uL 4.3-11.0 Blood erythrocytes automated count (number/volume) 4.96 10*6/uL 4.35-5.85 Venous blood hemoglobin measurement (mass/volume) 14.2 g/dL 11.5-16.0 Blood hematocrit (volume fraction) 40 % 35-52 Automated erythrocyte mean corpuscular volume 81 [foz_us] 80-99 Automated erythrocyte mean corpuscular hemoglobin (mass per erythrocyte) 29 pg 25-34 Automated erythrocyte mean corpuscular hemoglobin concentration measurement ( mass/volume) 35 g/dL 32-36 Automated erythrocyte distribution width ratio 12.9 % 10.0-14.5 Automated blood platelet count (count/volume) 435 10*3/uL 130-400 Automated blood platelet mean volume measurement 8.7 [foz_us] 7.4-10.4 Automated blood neutrophils/100 leukocytes 48 % 42-75 Automated blood lymphocytes/100 leukocytes 43 % 12-44 Blood monocytes/100 leukocytes 6 % 0-12 Automated blood eosinophils/100 leukocytes 2 % 0-10 Automated blood basophils/100 leukocytes 1 % 0-10 Blood neutrophils automated count (number/volume) 4.5 10*3 1.8-7.8 Blood lymphocytes automated count (number/volume) 4.1 10*3 1.0-4.0 Blood monocytes automated count (number/volume) 0.6 10*3 0.0-1.0 Automated eosinophil count 0.1 10*3/uL 0.0-0.3 Automated blood basophil count (count/volume) 0.1 10*3/uL 0.0-0.1 Serum or plasma choriogonadotropin ( test) detection - 08/17/17 23:55 Serum or plasma choriogonadotropin ( test) detection NEGATIVE NEGATIVE Comprehensive metabolic panel - 08/17/17 23:55 Serum or plasma sodium measurement (moles/volume) 137 mmol/L 135-145 Serum or plasma potassium measurement (moles/volume) 3.4 mmol/L 3.6-5.0 Serum or plasma chloride measurement (moles/volume) 105 mmol/L 98-107 Carbon dioxide 24 mmol/L 21-32 Serum or plasma anion gap determination (moles/volume) 8 mmol/L 5-14 Serum or plasma urea nitrogen measurement (mass/volume) 8 mg/dL 7-18 Serum or plasma creatinine measurement (mass/volume) 0.73 mg/dL 0.60-1.30 Serum or plasma urea nitrogen/creatinine mass ratio 11 NRG Serum or plasma creatinine measurement with calculation of estimated glomerular filtration rate > NRG Serum or plasma glucose measurement (mass/volume) 94 mg/dL 70-105 Serum or plasma calcium measurement (mass/volume) 8.9 mg/dL 8.5-10.1 Serum or plasma total bilirubin measurement (mass/volume) 0.5 mg/dL 0.1-1.0 Serum or plasma alkaline phosphatase measurement (enzymatic activity/volume) 78 U/L 40-136 Serum or plasma aspartate aminotransferase measurement (enzymatic activity/ volume) 17 U/L 5-34 Serum or plasma alanine aminotransferase measurement (enzymatic activity/volume ) 15 U/L 0-55 Serum or plasma protein measurement (mass/volume) 7.0 g/dL 6.4-8.2 Serum or plasma albumin measurement (mass/volume) 4.1 g/dL 3.2-4.5 Serum or plasma amylase measurement (enzymatic activity/volume) - 08/17/17 23: 55 Serum or plasma amylase measurement (enzymatic activity/volume) 76 U /L 25-125 Lipase - 08/17/17 23:55 Lipase 60 U/L 8-78 Complete blood count (CBC) with automated white blood cell (WBC) differential - 09/02/17 21:20 Blood leukocytes automated count (number/volume) 12.6 10*3/uL 4.3-11.0 Blood erythrocytes automated count (number/volume) 4.81 10*6/uL 4.35-5.85 Venous blood hemoglobin measurement (mass/volume) 13.8 g/dL 11.5-16.0 Blood hematocrit (volume fraction) 40 % 35-52 Automated erythrocyte mean corpuscular volume 82 [foz_us] 80-99 Automated erythrocyte mean corpuscular hemoglobin (mass per erythrocyte) 29 pg 25-34 Automated erythrocyte mean corpuscular hemoglobin concentration measurement ( mass/volume) 35 g/dL 32-36 Automated erythrocyte distribution width ratio 13.3 % 10.0-14.5 Automated blood platelet count (count/volume) 447 10*3/uL 130-400 Automated blood platelet mean volume measurement 8.3 [foz_us] 7.4-10.4 Automated blood neutrophils/100 leukocytes 70 % 42-75 Automated blood lymphocytes/100 leukocytes 23 % 12-44 Blood monocytes/100 leukocytes 6 % 0-12 Automated blood eosinophils/100 leukocytes 1 % 0-10 Automated blood basophils/100 leukocytes 0 % 0-10 Blood neutrophils automated count (number/volume) 8.7 10*3 1.8-7.8 Blood lymphocytes automated count (number/volume) 2.9 10*3 1.0-4.0 Blood monocytes automated count (number/volume) 0.8 10*3 0.0-1.0 Automated eosinophil count 0.1 10*3/uL 0.0-0.3 Automated blood basophil count (count/volume) 0.0 10*3/uL 0.0-0.1 PT panel in platelet poor plasma by coagulation assay - 09/02/17 21:20 Prothrombin time (PT) in platelet poor plasma by coagulation assay 12.6 s 12.2-14.7 INR in platelet poor plasma or blood by coagulation assay 0.9 0.8-1.4 Activated partial thromboplastin time (aPTT) in platelet poor plasma bycoagulation assay - 09/02/17 21:20 Activated partial thromboplastin time (aPTT) in platelet poor plasma bycoagulation assay 25 s 24-35 Comprehensive metabolic panel - 09/02/17 21:20 Serum or plasma sodium measurement (moles/volume) 137 mmol/L 135-145 Serum or plasma potassium measurement (moles/volume) 3.7 mmol/L 3.6-5.0 Serum or plasma chloride measurement (moles/volume) 105 mmol/L 98-107 Carbon dioxide 21 mmol/L 21-32 Serum or plasma anion gap determination (moles/volume) 11 mmol/L 5-14 Serum or plasma urea nitrogen measurement (mass/volume) 10 mg/dL 7-18 Serum or plasma creatinine measurement (mass/volume) 0.73 mg/dL 0.60-1.30 Serum or plasma urea nitrogen/creatinine mass ratio 14 NRG Serum or plasma creatinine measurement with calculation of estimated glomerular filtration rate > NRG Serum or plasma glucose measurement (mass/volume) 110 mg/dL 70-105 Serum or plasma calcium measurement (mass/volume) 9.2 mg/dL 8.5-10.1 Serum or plasma total bilirubin measurement (mass/volume) 0.4 mg/dL 0.1-1.0 Serum or plasma alkaline phosphatase measurement (enzymatic activity/volume) 81 U/L 40-136 Serum or plasma aspartate aminotransferase measurement (enzymatic activity/ volume) 19 U/L 5-34 Serum or plasma alanine aminotransferase measurement (enzymatic activity/volume ) 24 U/L 0-55 Serum or plasma protein measurement (mass/volume) 7.1 g/dL 6.4-8.2 Serum or plasma albumin measurement (mass/volume) 4.1 g/dL 3.2-4.5 Complete urinalysis with reflex to culture - 09/02/17 21:28 Urine color determination YELLOW NRG Urine clarity determination CLEAR NRG Urine pH measurement by test strip 5 5-9 Specific gravity of urine by test strip 1.025 1.016- 1.022 Urine protein assay by test strip, semi-quantitative 1+ NEGATIVE Urine glucose detection by automated test strip NEGATIVE NEGATIVE Erythrocytes detection in urine sediment by light microscopy 2+ NEGATIVE Urine ketones detection by automated test strip NEGATIVE NEGATIVE Urine nitrite detection by test strip NEGATIVE NEGATIVE Urine total bilirubin detection by test strip NEGATIVE NEGATIVE Urine urobilinogen measurement by automated test strip (mass/volume) NORMAL NORMAL Urine leukocyte esterase detection by dipstick 2+ NEGATIVE Automated urine sediment erythrocyte count by microscopy (number/high power field) [HPF] NRG Automated urine sediment leukocyte count by microscopy (number/high power field ) [HPF] NRG Bacteria detection in urine sediment by light microscopy FEW NRG Squamous epithelial cells detection in urine sediment by light microscopy 5-10 NRG Crystals detection in urine sediment by light microscopy NONE NRG Casts detection in urine sediment by light microscopy NONE NRG Mucus detection in urine sediment by light microscopy LARGE NRG Complete urinalysis with reflex to culture YES NRG Bacterial urine culture - 09/02/17 21:28 Bacterial urine culture [id number] NRG COLONY COUNT 10,000/ML - 100,000/ML NRG FTX;REPORTABLE PLUS, NRG FREE TEXT ENTRY 2 MIXED GRAM POSITIVES <10,000/ML NRG Encounters ACCT No. Visit Date/Time Discharge Status Pt. Type Provider Facility Loc./Unit Complaint [id number] 09/22/2017 21:47:00 09/22/2017 23:11:00 DIS Emergency CON VELAZQUEZ MD [facility] ER ITCHING/RASH [id number] 09/17/2017 02:19:00 09/17/2017 03:06:00 DIS Emergency ISAIAH DIMITRY AMARO [facility] ER WHOLE BODY RASH [id number] 09/02/2017 21:08:00 09/02/2017 23:35:00 DIS Emergency RAÚL ATKINSON [facility] ER VOMITTING BLOOD AFTER A NIGHT OUT OF DRINKING [id number] 08/17/2017 22:27:00 08/18/2017 03:30:00 DIS Emergency DIMITRY COLON DO [facility] ER ABD PAIN [id number] 04/21/2017 22:22:00 04/21/2017 23:12:00 DIS Emergency NAOMI MCKEON APRN [facility] ER LT HAND PAIN [id number] 08/05/2015 11:00:00 08/05/2015 17:25:00 DIS Outpatient STEWART CEJA MD [facility] SDC GANGLION CYST RIGHT WRIST [id number] 08/04/2015 10:46:00 08/04/2015 23:59:59 CLS Outpatient STEWART CEJA MD [facility] PREOP GANGLION CYST RIGHT WRIST [id number] 07/27/2015 21:59:00 07/27/2015 23:47:00 DIS Emergency RAÚL ATKINSON [facility] ER RT ARM PAIN [id number] 11/05/2017 22:33:00 ACT Emergency VICKIE WILLIS MD [facility] ER CHEST PAIN ANXIETY POSS MISCARRIAGE [id number] 12/26/2014 12:05:00 Document Registration [id number] 12/15/2014 10:57:00 Document Registration
== END 2017-11-06 00:12 | disposition left against medical advice (07) ==
LOC: EDUNIT# 22:29 → ER 22:33
DX: O99.89 Other specified diseases and conditions complicating pregnancy, childbirth and the puerperium (principal); R07.9 Chest pain, unspecified; O99.340 Other mental disorders complicating pregnancy, unspecified trimester; F41.9 Anxiety disorder, unspecified

== ENCOUNTER → 2018-05-21 | Outpatient (CLI) | payer OTHER ==
[~2018-05-21] MED LIST changes: +PREN-148 PO
--- NOTE | 2018-05-21 14:33 | Diagnostic Imaging Report ---
PROCEDURE: US OB SINGLE FETUS <14 WKS. TECHNIQUE: Multiple real-time grayscale images were obtained over the gravid uterus in various projections. INDICATION: dating. FINDINGS: There is an intrauterine gestational sac containing a pole. measurements are consistent with approximately 13 weeks 3 days gestational age. heart rate was recorded at 156 beats per minute. No perigestational sac hemorrhage is detected. Adnexal evaluation does demonstrate a probable corpus luteal cyst in the right ovary measuring 18 mm. No free fluid is seen. IMPRESSION: Single live IUP 13 weeks 3 days gestational age. Estimated date of confinement sonographically is 11/23/2018. Dictated by: Dictated on workstation # [id number]
== END ==
LOC: RAD 12:24
PROVIDERS: ATTEND Family Medicine
DX: Z34.81 Encounter for supervision of other normal pregnancy, first trimester (principal); Z3A.13 13 weeks gestation of pregnancy
CPT/HCPCS: 76801

== ENCOUNTER → 2018-05-29 | Outpatient (CLI) | payer OTHER ==
--- NOTE | 2018-05-29 13:22 | Diagnostic Imaging Report ---
INDICATION: Dysuria and generalized abdominal pain. FINDINGS: There is a single live IUP in a variable presentation. heart rate was recorded at 140 beats per minute. Placenta appears to be developing posteriorly. Amniotic fluid volume is normal. Adnexa are unremarkable. No mass or free fluid is seen. IMPRESSION: Single live IUP. No complicating features are detected. Dictated by: Dictated on workstation # [id number]
== END ==
LOC: RAD 11:51
PROVIDERS: ATTEND Nurse Practitioner
DX: O26.899 Other specified pregnancy related conditions, unspecified trimester (principal); R30.0 Dysuria; R10.84 Generalized abdominal pain
CPT/HCPCS: 76815

== ENCOUNTER 2018-06-06 00:43 | Emergency (ER) | payer OTHER ==
[~2018-06-06] VITALS: Ht 160 cm; Wt 78.5 kg
[~2018-06-06 00:43] MED LIST changes: -PREN-148 PO
--- OUTSIDE RECORDS SUMMARY | 2018-06-06 00:48 | XMS REPORT | Continuity of Care Document ---
Author Author [facility] Organization [facility] Address Unknown Phone Unavailable Allergies Active Description Code Type Severity Reaction Onset Reported/Identified Relationship to Patient Clinical Status Yes No Known Drug Allergies [id number] Drug Allergy Unknown N/A 12/15/2014 Medications There [...] SYNOVITIS AND TENOSYNOVITIS, UNSPECIFIED 04/21/2017 NAOMI MCKEON EXPERIMENTAL BOX TESTER Ot M79.645 PAIN IN LEFT FINGER(S) 04/21/2017 [...] HISTORY OF COMP OF PREG, CHLDBR 09/17/2017 DORITA COLON DOA K Ot K21.9 GASTRO-ESOPHAGEAL REFLUX DISEASE WITHOUT 09/17/2017 DORITA COLON DOA K Ot R21 RASH AND OTHER NONSPECIFIC SKIN ERUPTION 09/17/2017 DIMITRY COLON DO K Ot T78.40XA ALLERGY, UNSPECIFIED, INITIAL ENCOUNTER 09/17/2017 DIMITRY COLON DO K Ot Z87.59 PERSONAL HISTORY OF COMP OF PREG, CHLDBR 09/22/2017 CAROLINE GONZALEZ, CON Lawson Ot K21.9 GASTRO-ESOPHAGEAL REFLUX DISEASE WITHOUT 09/22/2017 CAROLINE GONZALEZ, CON Lawson Ot L29.9 PRURITUS, UNSPECIFIED 09/22/2017 CAROLINE GONZALEZ, CON Lawson Ot Z82.49 FAMILY HX OF ISCHEM HEART DIS AND OTH DI 09/22/2017 CAROLINE GONZALEZ, CON Lawson Ot Z87.59 PERSONAL HISTORY OF COMP OF PREG, CHLDBR 09/29/2017 CAROLINE GONZALEZ, CON Lawson Ot K21.9 GASTRO-ESOPHAGEAL REFLUX DISEASE WITHOUT 09/29/2017 CAROLINE GONZALEZ, CON Lawson Ot L29.9 PRURITUS, UNSPECIFIED 09/29/2017 CAROLINE GONZALEZ, CON Lawson Ot Z82.49 FAMILY HX OF ISCHEM HEART DIS AND OTH DI 09/29/2017 CAROLINE GONZALEZ, CON Lawson Ot Z87.59 PERSONAL HISTORY OF COMP OF PREG, CHLDBR 11/05/2017 MARCIAL GONZALEZ, STEWART Demarco Ot M67.431 GANGLION, RIGHT WRIST 11/05/2017 STEWART CEJA MD Ot Z01.818 ENCOUNTER FOR OTHER PREPROCEDURAL EXAMIN 11/06/2017 VICKIE WILLIS MD Ot F41.9 ANXIETY DISORDER, UNSPECIFIED 11/06/2017 VICKIE WILLIS MD Ot O99.340 OT MENTAL DISORDERS COMPLICATING PREGNA 11/06/2017 VICKIE WILLIS MD Ot O99.89 OT DISEASES AND CONDITIONS COMPL PREG/C 11/06/2017 VICKIE WILLIS MD Ot R07.9 CHEST PAIN, UNSPECIFIED 05/22/2018 CHEYENNE GONZALEZ, LASHAUN Hinson Ot Z34.81 ENCOUNTER FOR SUPRVSN OF NORMAL PREGNANC 05/22/2018 CHEYENNE GONZALEZ, LASHAUN Hinson Ot Z3A.13 13 WEEKS GESTATION OF Procedures Code Description Performed By Performed On [...] platelet poor plasma by coagulation assay - 11/11/17 21:20 Prothrombin time (PT) in platelet poor [...] culture - 09/02/17 21:28 Bacterial urine culture [id number] NRG COLONY COUNT 10,000/ML - 100,000/ML NRG FTX;REPORTABLE PLUS, NRG FREE TEXT ENTRY 2 MIXED GRAM POSITIVES <10,000/ML NRG CULTURE, URINE - 04/30/18 11:17 CULTURE, URINE, ROUTINE SEE NOTE NRG CULTURE, GENITAL - 04/30/18 11:17 CULTURE, GENITAL SEE NOTE NRG SUREPATH PAP AND HPV mRNA E6/E7 - 04/30/18 12:47 CLINICAL INFORMATION: NRG LMP: NRG PREV. PAP: UNKNOWN NRG PREV. BX: NRG SOURCE: Cervix NRG STATEMENT OF ADEQUACY: NRG INTERPRETATION/RESULT: NRG PIPEFITTER HELPER: NRG HPV mRNA E6/E7, SUREPATH VIAL Not Detected NOT DETECTED INFECTION: NRG COMMENT NRG Encounters ACCT No. Visit Date/Time Discharge Status Pt. Type Provider Facility Loc./Unit Complaint [id number] 05/21/2018 12:24:00 05/21/2018 23:59:59 CLS Outpatient CHEYENNE GONZALEZ, LASHAUN Hinson [facility] RAD NORMAL IN MULTIGRAVIDA [id number] 11/05/2017 22:33:00 11/06/2017 00:12:00 DIS Emergency VICKIE WILLIS MD [facility] ER CHEST PAIN ANXIETY POSS MISCARRIAGE [id number] 09/22/2017 21:47:00 09/22/2017 23:11:00 DIS Emergency CON VELAZQUEZ MD [facility] ER ITCHING/RASH [id number] 09/17/2017 02:19:00 09/17/2017 03:06:00 DIS Emergency DIMITRY COLON DO [facility] ER WHOLE BODY RASH [id number] 09/02/2017 21:08:00 09/02/2017 23:35:00 DIS Emergency RAÚL ATKINSON [facility] ER VOMITTING BLOOD AFTER A NIGHT OUT OF DRINKING [id number] 08/17/2017 22:27:00 08/18/2017 03:30:00 DIS Emergency DIMITRY COLON DO [facility] ER ABD PAIN [id number] 04/21/2017 22:22:00 04/21/2017 23:12:00 DIS Emergency NAOMI MCKEON APRN [facility] ER LT HAND PAIN [id number] 08/05/2015 11:00:00 08/05/2015 17:25:00 DIS Outpatient STEWART CEJA MD [facility] SDC GANGLION CYST RIGHT WRIST [id number] 08/04/2015 10:46:00 08/04/2015 23:59:59 CLS Outpatient STEWART CEJA MD [facility] PREOP GANGLION CYST RIGHT WRIST [id number] 07/27/2015 21:59:00 07/27/2015 23:47:00 DIS Emergency RAÚL ATKINSON [facility] ER RT ARM PAIN [id number] 12/26/2014 12:05:00 Document Registration [id number] 12/15/2014 10:57:00 Document Registration [id number] 04/30/2018 10:00:00 04/30/2018 23:59:59 CLS Outpatient REJI TINOCO DO [facility] [id number] 04/30/2018 10:00:00 Document Registration
[2018-06-06] MEDS ORDERED: PREN-148 PO (00:51)
[2018-06-06 01:08] LABS: BASOPHILS % (AUTO) 0 % (0-10); EOSINOPHILS # (AUTO) 0.1 10^3/uL (0.0-0.3); EOSINOPHILS % (AUTO) 1 % (0-10); HEMATOCRIT 37 % (35-52); HEMOGLOBIN 13.3 G/DL (11.5-16.0); LYMPHOCYTES # (AUTO) 3.8 X 10^3 (1.0-4.0); LYMPHOCYTES % (AUTO) 36 % (12-44); MEAN CORPUSCULAR HEMOGLOBIN 29 PG (25-34); MEAN CORPUSCULAR HGB CONC 36 G/DL (32-36); MEAN CORPUSCULAR VOLUME 79 FL (80-99); MEAN PLATELET VOLUME 8.4 FL (7.4-10.4); MONOCYTES # (AUTO) 0.8 X 10^3 (0.0-1.0); MONOCYTES % (AUTO) 7 % (0-12); NEUTROPHILS # (AUTO) 5.7 X 10^3 (1.8-7.8); NEUTROPHILS % (AUTO) 55 % (42-75); PLATELET COUNT 372 10^3/uL (130-400); RED BLOOD COUNT 4.66 10^6/uL (4.35-5.85); RED CELL DISTRIBUTION WIDTH 13.2 % (10.0-14.5); WHITE BLOOD COUNT 10.5 10^3/uL (4.3-11.0)
[2018-06-06] MEDS ORDERED: ACETAMINOPHEN 500 MG TAB (TYLENOL) PO ONE (01:15)
[2018-06-06 01:22] LABS: PROTHROMBIN TIME PATIENT 12.9 SEC (12.2-14.7)
[2018-06-06 01:30] LABS: ALANINE AMINOTRANSFERASE 14 U/L (0-55); ALBUMIN 3.5 GM/DL (3.2-4.5); ALKALINE PHOSPHATASE 52 U/L (40-136); AMYLASE 74 U/L (25-125); BILIRUBIN,TOTAL 0.3 MG/DL (0.1-1.0); BUN/CREATININE RATIO 5; CALCIUM 8.7 MG/DL (8.5-10.1); CARBON DIOXIDE 19 MMOL/L (21-32); CHLORIDE 107 MMOL/L (98-107); CREATINE KINASE 107 U/L (29-168); CREATININE SERUM 0.56 MG/DL (0.60-1.30); GFR ESTIMATED > 60; GLUCOSE 88 MG/DL (70-105); LIPASE 30 U/L (8-78); POTASSIUM 3.3 MMOL/L (3.6-5.0); SODIUM 137 MMOL/L (135-145); TOTAL PROTEIN 6.2 GM/DL (6.4-8.2)
[2018-06-06] MEDS ORDERED: LIDOCAINE 2% VISCOUS 15 ML UDC PO ONE (01:30)
[2018-06-06] MEDS ORDERED: ANTACID SUSP 30 ML UDC (MYLANTA) PO ONE (01:30)
[2018-06-06 01:38] LABS: CREATINE KINASE MB 1.6 NG/ML (<6.6); MYOGLOBIN SERUM 23.5 NG/ML (10.0-92.0)
--- NOTE | 2018-06-06 01:45 | ED Chest Pain ---
General Chief Complaint: Chest Wall/Rib Pain Stated Complaint: CP Nursing Triage Note: EPIGASTRIC PAIN X2 HRS AFTER LAYING DOWN. Nursing Sepsis Screen: No Definite Risk Source: patient Exam Limitations: no limitations History of Present Illness Date Seen by Provider: Jun 06, 2018 Time Seen by Provider: 00:55 Initial Comments PT ARRIVES VIA POV FROM HOME C/O MID CHEST PAIN SINCE 2199 TONIGHT STATES SHE WAS LAYING DOWN WHEN SYMPTOMS BEGAN PAIN IS WORSE WITH MOVEMENTS, REACHING, AND PUSHING ON CHEST, ETC. NO SHORTNESS OF BREATH' NO FEVER NO RECENT ILLNESS, URI SYMPTOMS OR COUGH NO SWELLING IN LEGS/ FEET OR PAIN IN [place] PT HAS HISTORY OF SAME --WITH ANXIETY ATTACKS PT STATES SHE IS UNDER ALOT OF STRESS--"FAMILY PROBLEMS" HAS NOT TAKEN ANYTHING FOR PAIN PT IS 16 WEEKS . HAD ROUTINE VISIT TODAY WITH DR. QUINN. NO PROBLEMS WITH THIS PT IS AB 3 PCP: DR. QUINN Allergies and Home Medications Allergies Coded Allergies: No Known Drug Allergies (Unverified , 12/15/14) Patient Home Medication List Home Medication List Reviewed: Yes Review of Systems Constitutional: no symptoms reported EENTM: No Symptoms Reported Respiratory: No Symptoms Reported Cardiovascular: See HPI, Chest Pain Gastrointestinal: No Symptoms Reported; Denies Nausea, Denies Vomiting Genitourinary: See HPI Musculoskeletal: no symptoms reported Skin: no symptoms reported Psychiatric/Neurological: No Symptoms Reported Endocrine: No Symptoms Reported Hematologic/Lymphatic: No Symptoms Reported Past Tolpgwp-[id number]-Whpcaq Hx Patient Social History Alcohol Use: Regular Use (DRINKS ONCE A WEEK WHEN NOT ) Recreational Drug Use: No Smoking Status: Current Everyday Smoker (HOOKAH DAILY) Type Used: Hookah 2nd Hand Smoke Exposure: No Recent Foreign Travel: No Contact w/Someone Who Travel: No Recent Infectious Disease Expo: No Recent Hopitalizations: No Immunizations Up To Date Tetanus Booster (TDap): Unknown PED Vaccines UTD: Yes Date of Influenza Vaccine: Jul 06, 2015 Seasonal Allergies Seasonal Allergies: No Past Medical History Surgeries: Yes ( X 2; GANGLION CYST RIGHT WRIST X 2) Section, Orthopedic Respiratory: No Cardiac: No Neurological: No : Yes Hx : 6 Hx Para: 2 Hx Total # of Abortions (Sp): 3 Reproductive Disorders: No Female Reproductive Disorders: Denies Genitourinary: No Gastrointestinal: Yes Gastroesophageal Reflux Musculoskeletal: No Endocrine: No HEENT: No Cancer: No Psychosocial: Yes Anxiety Integumentary: No Blood Disorders: No Adverse Reaction/Blood Tranf: No Family Medical History Cardiovascular disease Diabetes mellitus 19 MOTHER Hypertension 19 FATHER No Family History of: AIDS Abdominal aortic aneurysm Alan's disease Alcoholism Alzheimer's disease Aphasia Arthritis Asthma Cancer of mouth Cataracts Colon cancer Completed stroke Congenital disease Congenital heart disease Coronary thrombosis Cystic fibrosis Deafness or hearing loss Dementia Drug abuse Dysphasia Fibrocystic disease of breast Gastroenteritis Glaucoma Headache disorder Hypercholesterolemia Infertility Kidney disease Myocardial infarction Neoplasm Not obtainable due to adoption Osteoporosis Parkinson's disease Prostate cancer Psychosocial problem Respiratory disorder Seizure disorder Severe allergy Thyroid disease Tuberculosis Visual disorder No Pertinent Family Hx Physical Exam Vital Signs Vital Signs - First Documented 06/06/18 00:52 Temp 97.4 Pulse 95 Resp 18 B/P (MAP) 122/83 (96) Pulse Ox 98 O2 Delivery Room Air Capillary Refill : Less Than 3 Seconds Height, Weight, BMI Height: 5'3.00" Weight: 173lbs. 0oz. 78.653310ti; 28.31 BMI Method:Stated General Appearance: No Apparent Distress, WD/WN, Anxious Neck: Full Range of Motion, Normal Inspection, Non Tender, Supple Respiratory: Normal Breath Sounds, No Accessory Muscle Use, No Respiratory Distress, Other (TENDERNESS TO MID CHEST--PALPATION DRAMATICALLY REPRODUCES PAIN ) Cardiovascular: Regular Rate, Rhythm, No Edema, No Gallop, No JVD, No Murmur, Normal Peripheral Pulses Gastrointestinal: Normal Bowel Sounds, Non Tender, Soft, Other (FUNDUS 2-3 FB' S BELOW UMBILICUS. FHR 145) Extremity: Normal Capillary Refill, Normal Inspection, Normal Range of Motion, Non Tender, No Calf Tenderness, No Pedal Edema Neurologic/Psychiatric: Alert, Oriented x3, No Motor/Sensory Deficits, latin professor II- XII Norm as Tested Skin: Normal Color, Warm/Dry Progress/Results/Core Measures Results/Orders Lab Results Laboratory Tests Test 06/06/18 00:10 Range/Units White Blood Count 10.5 4.3-11.0 10^3/uL Red Blood Count 4.66 4.35-5.85 10^6/uL Hemoglobin 13.3 11.5-16.0 G/DL Hematocrit 37 35-52 % Mean Corpuscular Volume 79 L 80-99 FL Mean Corpuscular Hemoglobin 29 25-34 PG Mean Corpuscular Hemoglobin Concent 36 32-36 G/DL Red Cell Distribution Width 13.2 10.0-14.5 % Platelet Count 372 130-400 10^3/uL Mean Platelet Volume 8.4 7.4-10.4 FL Neutrophils (%) (Auto) 55 42-75 % Lymphocytes (%) (Auto) 36 12-44 % Monocytes (%) (Auto) 7 0-12 % Eosinophils (%) (Auto) 1 0-10 % Basophils (%) (Auto) 0 0-10 % Neutrophils # (Auto) 5.7 1.8-7.8 X 10^3 Lymphocytes # (Auto) 3.8 1.0-4.0 X 10^3 Monocytes # (Auto) 0.8 0.0-1.0 X 10^3 Eosinophils # (Auto) 0.1 0.0-0.3 10^3/uL Basophils # (Auto) 0.0 0.0-0.1 10^3/uL Prothrombin Time 12.9 12.2-14.7 SEC INR Comment 1.0 0.8-1.4 Activated Partial Thromboplast Time 27 24-35 SEC Sodium Level 137 135-145 MMOL/L Potassium Level 3.3 L 3.6-5.0 MMOL/L Chloride Level 107 98-107 MMOL/L Carbon Dioxide Level 19 L 21-32 MMOL/L Anion Gap 11 5-14 MMOL/L Blood Urea Nitrogen 3 L 7-18 MG/DL Creatinine 0.56 L 0.60-1.30 MG/DL Estimat Glomerular Filtration Rate > 60 BUN/Creatinine Ratio 5 Glucose Level 88 70-105 MG/DL Calcium Level 8.7 8.5-10.1 MG/DL Corrected Calcium 9.1 8.5-10.1 MG/DL Magnesium Level 2.0 1.8-2.4 MG/DL Total Bilirubin 0.3 0.1-1.0 MG/DL Aspartate Amino Transf (AST/SGOT) 14 5-34 U/L Alanine Aminotransferase (ALT/SGPT) 14 0-55 U/L Alkaline Phosphatase 52 40-136 U/L Total Creatine Kinase 107 29-168 U/L Creatine Kinase MB 1.6 <6.6 NG/ML Myoglobin 23.5 10.0-92.0 NG/ML Troponin I < 0.30 <0.30 NG/ML B-Type Natriuretic Peptide < 10.0 <100.0 PG/ML Total Protein 6.2 L 6.4-8.2 GM/DL Albumin 3.5 3.2-4.5 GM/DL Amylase Level 74 25-125 U/L Lipase 30 8-78 U/L Serum Test, Qualitative POSITIVE NEGATIVE My Orders Orders - DIMITRY COLON DO Cbc With Automated Diff (06/06/18 00:55) Magnesium (06/06/18 00:55) Chest 1 View, Ap/Pa Only (06/06/18 00:55) Ekg Tracing (06/06/18 00:55) Cardiac Profile 1 (06/06/18 00:55) Comprehensive Metabolic Panel (06/06/18 00:55) Myoglobin Serum (06/06/18 00:55) Protime With Inr (06/06/18 00:55) Partial Thromboplastin Time (06/06/18 00:55) O2 (06/06/18 00:55) Monitor-Rhythm Ecg Trace Only (06/06/18 00:55) Saline Lock/Iv-Start (06/06/18 00:55) Creatine Kinase (06/06/18 00:55) Creatine Kinase Mb (06/06/18 00:55) Lipase (06/06/18 00:55) Amylase (06/06/18 00:55) BNP (06/06/18 00:55) Hcg,Qualitative Serum (06/06/18 00:55) Acetaminophen Tablet (Tylenol Tablet) (06/06/18 01:15) Heart Tones (06/06/18 01:18) Lidocaine 2% Viscous 15 Ml (Xylocaine Vi (06/06/18 01:30) Antacid Suspension (Mylanta Suspension (06/06/18 01:30) Medications Given in ED Current Medications Medications Dose Ordered Sig/Genevieve Route Start Time Stop Time Status Last Admin Dose Admin Acetaminophen 1,000 mg ONCE ONCE PO 06/06/18 01:15 06/06/18 01:16 DC 06/06/18 01:17 1,000 MG Al Hydrox/Mg Hydrox/Simethicone 30 ml ONCE ONCE PO 06/06/18 01:30 06/06/18 01:31 DC 06/06/18 01:43 30 ML Lidocaine HCl 15 ml ONCE ONCE PO 06/06/18 01:30 06/06/18 01:31 DC 06/06/18 01:43 15 ML Vital Signs/I&O 06/06/18 06/06/18 06/06/18 00:52 01:00 01:50 Temp 97.4 97.2 Pulse 95 92 Resp 18 18 B/P (MAP) 122/83 (96) 126/84 (96) Pulse Ox 98 100 100 O2 Delivery Room Air Room Air Room Air Blood Pressure Mean: 96 Progress Progress Note : Progress Note SLEPT / RESTED QUIETLY FOR REMAINDER OF ER STAY Initial ECG Impression Date: Jun 06, 2018 Initial ECG Impression Time: 00:59 Initial ECG Rate: 90 Initial ECG Rhythm: Normal Sinus Diagnostic Imaging Comments CXR--NO ACUTE PROCESS, PENDING RADIOLOGIST REVIEW Reviewed: Reviewed by Me Departure Impression Primary Impression: chest wall pain related to anxiety Additional Impression: 15 weeks gestation of Disposition: 01 HOME, SELF-CARE Condition: Stable Departure-Patient Inst. Referrals: LASHAUN QUINN MD (PCP/Family) Primary Care Physician Patient Instructions: Anxiety, Adult (DC), Chest Pain (DC), Chest Pain That Is Not Caused by the Heart (DC), Costochondritis (DC) Add. Discharge Instructions: ALTERNATE ICE AND HEAT TO SORE AREA TYLENOL NEEDED FOR PAIN FOLLOW UP WITH DR. QUINN TOMORROW FOR FURTHER CARE All discharge instructions reviewed with patient and/or family. Voiced understanding. DIMITRY COLON DO Jun 06, 2018 01:45
[2018-06-06 01:50] VITALS: BP 126/84
--- NOTE | 2018-06-06 07:25 | Diagnostic Imaging Report ---
INDICATION: Epigastric pain. FINDINGS: The heart size, mediastinal configuration, and pulmonary vascularity are within normal limits. There is no pleural effusion, pneumothorax, or pneumonia. The osseous structures are unremarkable. IMPRESSION: No acute cardiopulmonary abnormality. Dictated by: Dictated on workstation # [id number]
== END 2018-06-06 01:50 | disposition home or self-care (01) ==
LOC: EDUNIT# 00:43 → ER 00:44
DX: O99.342 Other mental disorders complicating pregnancy, second trimester (principal); F41.9 Anxiety disorder, unspecified; O99.612 Diseases of the digestive system complicating pregnancy, second trimester; K21.9 Gastro-esophageal reflux disease without esophagitis; O99.332 Smoking (tobacco) complicating pregnancy, second trimester; F17.210 Nicotine dependence, cigarettes, uncomplicated; Z87.59 Personal history of other complications of pregnancy, childbirth and the puerperium; Z82.49 Family history of ischemic heart disease and other diseases of the circulatory system; Z3A.15 15 weeks gestation of pregnancy
CPT/HCPCS: 36415; 71045; 80053; 82150; 82550; 82553; 83690; 83735; 83874; 83880; 84484; 84703; 85025; 85610; 85730; 93005; 93041

== ENCOUNTER 2018-09-03 17:40 | Observation (INO) | payer OTHER ==
[~2018-09-03] VITALS: Ht 170.2 cm; Wt 77.1 kg
[~2018-09-03 17:40] MED LIST changes: +PREN-148 PO
[2018-09-03 18:09] LABS: BILIRUBIN,URINE NEGATIVE (NEGATIVE); CLARITY,URINE CLEAR; COLOR,URINE YELLOW; GLUCOSE, URINE (UA) NEGATIVE (NEGATIVE); HEMOGLOBIN 12.2 G/DL (11.5-16.0); KETONES,URINE NEGATIVE (NEGATIVE); LEUKOCYTE ESTERASE ,URINE 1+ (NEGATIVE); MEAN PLATELET VOLUME 8.7 FL (7.4-10.4); NITRITE,URINE NEGATIVE (NEGATIVE); PH,URINE 6 (5-9); PROTEIN,URINE NEGATIVE (NEGATIVE); RED BLOOD COUNT 4.29 10^6/uL (4.35-5.85); RED CELL DISTRIBUTION WIDTH 13.5 % (10.0-14.5); UROBILINOGEN,URINE NORMAL (NORMAL); WHITE BLOOD COUNT 9.6 10^3/uL (4.3-11.0)
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
[2018-09-03 18:20] LABS: BACTERIA,URINE MODERATE /HPF; RBC,URINE RARE /HPF
[2018-09-03 18:28] LABS: ALANINE AMINOTRANSFERASE 11 U/L (0-55); ALBUMIN 3.4 GM/DL (3.2-4.5); ALKALINE PHOSPHATASE 108 U/L (40-136); BILIRUBIN,DIRECT 0.1 MG/DL (0.0-0.3); BILIRUBIN,INDIRECT 0.1 MG/DL; BILIRUBIN,TOTAL 0.2 MG/DL (0.1-1.0); BUN/CREATININE RATIO 6; CALCIUM 8.8 MG/DL (8.5-10.1); CARBON DIOXIDE 19 MMOL/L (21-32); CHLORIDE 107 MMOL/L (98-107); CREATININE SERUM 0.49 MG/DL (0.60-1.30); GFR ESTIMATED > 60; GLUCOSE 83 MG/DL (70-105); SODIUM 136 MMOL/L (135-145); TOTAL PROTEIN 6.7 GM/DL (6.4-8.2)
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
[2018-09-03] MEDS ORDERED: fentaNYL INJECTION 100 MCG/2 ML AMP IVP ONE (19:15)
[2018-09-03] MEDS ORDERED: cefTRIAXone FOR IV USE 1,000 MG in NS (IVPB) 50 ML IV ONE (20:00)
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
--- OUTSIDE RECORDS SUMMARY | 2018-09-03 21:32 | XMS REPORT ---
Author Author JOSE GUADALUPE CABELLO [facility] WALK IN [facility] Address [address] [place] [address] Care Team Providers Care Wine Specialist Name Role Phone JOSE GUADALUPE CABELLO Unavailable PROBLEMS Unknown Problems ALLERGIES No Known Allergies ENCOUNTERS Encounter Location Date Diagnosis [place] [id number] [place] [address] 82430- 1458 Jun, [place] [id number] [place] [address] 27737- 2411 May, Burning with urination R30.0 ; Second trimester Z34.92 ; 15 weeks gestation of Z3A.15 and UTI (urinary tract infection ) in in second trimester O23.42 [place] [id number] [place] [address] 28677- 7018 May, [facility] IN [facility] [id number] [place] [address]127 [address]9142 May, Dysuria R30.0 and Generalized abdominal pain R10.[address] [place] [id number] [place] [address] 29879- 8639 Apr, Normal in multigravida Z34.80 and care, subsequent in first trimester Z34.81 [place] [address] [place] [address] 26070[address] 9751 Mar, [facility] WALK IN [facility] [id number] [place] [address] 78151 [address]2762 Mar, Encounter for test, result positive Z32.01 [facility] WALK IN [place] [id number] [place] [address]60 [address]2765 Jun, Encounter for immunization Z23 [facility] WALK IN CARE [address] [facility] [id number] [place] [address] Nov, Pharyngitis J02.9 and Bronchitis J40 IMMUNIZATIONS No Known Immunizations SOCIAL HISTORY Never Assessed REASON FOR VISIT cramping- Menstration is 1 week late JStrasserRN, Dizziness with fast heart rate , LMP 429-18 Est date of delivery 11-25-18 PLAN OF CARE Activity Details Follow Up prn Reason: VITAL SIGNS Height 63 in 2018-03-30 Weight 172.2 lbs 2018-03-30 Temperature 97.6 degrees Fahrenheit 2018-03-30 Heart Rate 100 bpm 2018-03-30 Respiratory Rate 20 2018-03-30 BMI 30.50 kg/m2 2018-03-30 Blood pressure systolic 110 mmHg 2018-03-30 Blood pressure diastolic 80 mmHg 2018-03-30 MEDICATIONS Medication Instructions Dosage Frequency Start Date End Date Duration Status ProAir HFA 108 (90 Base) MCG/ACT Inhalation every 4 hrs prn cough or wheeze 2 puffs as needed Nov, 05 days Not-Taking RESULTS Name Result Date Reference Range TEST, URINE (IN HOUSE) 2018-03-30 RESULTS positive Lot # [id number] Control + Exp date 2019-10-22 PROCEDURES Procedure Date Ordered Result Body Site URINE TEST March 30, 2018 INSTRUCTIONS MEDICATIONS ADMINISTERED No Known Medications MEDICAL (GENERAL) HISTORY Type Description Date Medical History anxiety attacks/ pt. was asked to wear a heart monitor, but refused due to cost. Surgical History section x2 2014/2012 Surgical History cyst removed from right wrist x2 with Dr. Rothman Hospitalization History see above surgeries
--- OUTSIDE RECORDS SUMMARY | 2018-09-03 21:32 | XMS REPORT ---
Author Author LASHAUN QUINN Organization [facility] Address [address] [place] [address] Care Team Providers Care Dumper [employer] Name Role Phone LASHAUN QUINN Unavailable PROBLEMS Unknown Problems ALLERGIES No Information ENCOUNTERS Encounter Location Date Diagnosis [facility] [id number] [place] [address] 40736- 2951 Aug, [facility] [address] [address] Aug, [place] [address] [address]65[address] 8971 Jul, Normal in multigravida Z34.80 [facility] [id number] [place] [address] 65312 [address]5131 Jul, Nausea and vomiting, intractability of vomiting not specified, unspecified vomiting type R11.2 and 22 weeks gestation of Z3A.22 [facility] [id number] [place] [address]78 [address]5757 Jul, Viral gastroenteritis A08.4 ; Fever, unspecified fever cause R50.9 and Acute nasopharyngitis J00 [facility] [id number] [place] [address] 44240- 6960 Jun, [place] [id number] [place] [address] 96196- 9886 May, Burning with urination R30.0 ; Second trimester Z34.92 ; 15 weeks gestation of Z3A.15 and UTI (urinary tract infection ) in in second trimester O23.42 [place] [id number] [place] [address] 41542- 9754 May, [facility] WALK IN CARE [address] [place] [id number] [address] May, Dysuria R30.0 and Generalized abdominal pain R10.[address] [place] [address] 42243- 8737 Apr, Normal in multigravida Z34.80 and care, subsequent in first trimester Z34.81 [place] [id number] [place] [address] 24730- 8579 Mar, [facility] IN [place] [id number] [place] [address] 19580 [address]6567 Mar, Encounter for test, result positive Z32.01 [place] [id number] [place] [address] 70194 -3342 Jun, Encounter for immunization Z23 [place] [id number] [place] [address] 4[address] Nov, Pharyngitis J02.9 and Bronchitis J40 IMMUNIZATIONS No Known Immunizations SOCIAL HISTORY Never Assessed REASON FOR VISIT Requests return call PLAN OF CARE VITAL SIGNS MEDICATIONS Unknown Medications RESULTS No Results PROCEDURES No Known procedures INSTRUCTIONS MEDICATIONS ADMINISTERED No Known Medications MEDICAL (GENERAL) HISTORY Type Description Date Medical History anxiety attacks/ pt. was asked to wear a heart monitor, but refused due to cost. Surgical History section x2 2014/2012 Surgical History cyst removed from right wrist x2 with Dr. Rothman Hospitalization History see above surgeries
--- OUTSIDE RECORDS SUMMARY | 2018-09-03 21:32 | XMS REPORT ---
Author Author LASHAUN QUINN Organization [facility] Address [address] [place] [address] Care Team Providers Care Mold Polisher Name Role Phone LASHAUN QUINN Unavailable PROBLEMS Unknown Problems ALLERGIES No Information ENCOUNTERS Encounter Location Date Diagnosis [facility] [id number] [place] [address] 24988- 7857 Jun, [place] [id number] [place] [address] 55420- 2876 May, Burning with urination R30.0 ; Second trimester Z34.92 ; 15 weeks gestation of Z3A.15 and UTI (urinary tract infection ) in in second trimester O23.42 [facility] [address] [place] [address] 25278- 1315 May, [facility] WALK IN CARE [id number] [place] [address] 75234 -5799 May, Dysuria R30.0 and Generalized abdominal pain R10.84 [place] [id number] [place] [address] 78424- 5609 Apr, Normal in multigravida Z34.80 and care, subsequent in first trimester Z34.81 [facility] [address] [address] Mar, [facility] WALK IN [facility] [id number] [place] [address] 86085 -0333 Mar, Encounter for test, result positive Z32.01 [facility] IN [facility]ARE [address] [place] [address] 04828 -8039 Jun, Encounter for immunization Z23 [facility] WALK IN CARE [address] [id number] [address] Nov, Pharyngitis J02.9 and Bronchitis J40 IMMUNIZATIONS No Known Immunizations SOCIAL HISTORY Never Assessed REASON FOR VISIT Waiting for call back PLAN OF CARE VITAL SIGNS MEDICATIONS Unknown Medications RESULTS No Results PROCEDURES No Known procedures INSTRUCTIONS MEDICATIONS ADMINISTERED No Known Medications MEDICAL (GENERAL) HISTORY Type Description Date Medical History anxiety attacks/ pt. was asked to wear a heart monitor, but refused due to cost. Surgical History section x2 Surgical History cyst removed from right wrist x2 with Dr. Rothman Hospitalization History see above surgeries
--- OUTSIDE RECORDS SUMMARY | 2018-09-03 21:32 | XMS REPORT ---
Author Author RADHA CRUM [facility] Address [address] [place] [address] Phone Unavailable Care Team Providers Care Religious Ritual Slaughterer Name Role Phone RADHA CRUM Unavailable Unavailable PROBLEMS Unknown Problems ALLERGIES No Known Allergies ENCOUNTERS Encounter Location Date Diagnosis [facility] [id number] [place] [address] 69897- 6192 Jun, [facility] [id number] [place] [address] 47978- 4814 May, Burning with urination R30.0 ; Second trimester Z34.92 ; 15 weeks gestation of Z3A.15 and UTI (urinary tract infection ) in in second trimester O23.42 [facility] [id number] [place] [address] 09355- 8118 May, [facility]ALK IN CARE [id number] [place] [address] 50297 -7107 May, Dysuria R30.0 and Generalized abdominal pain R10.84 [facility] [id number] [place] [address] 28674- 2984 Apr, Normal in multigravida Z34.80 and care, subsequent in first trimester Z34.81 [facility] [id number] [place] [address] 12800- 7620 Mar, [facility] IN [facility]ARE [id number] [place] [address] 18341 -4567 Mar, Encounter for test, result positive Z32.01 [facility] IN [facility] [id number] [place] [address] 74548 -2646 Jun, Encounter for immunization Z23 [facility] IN CARE [address] [place] [address] Nov, Pharyngitis J02.9 and Bronchitis J40 IMMUNIZATIONS No Known Immunizations SOCIAL HISTORY Never Assessed REASON FOR VISIT pt is currently 13 weeks gestation. complaining of dysuria et a pink tinged discharge after she voids. also complaining on lower abdominal pain. all of this started at 0400 this am. kbullardrn, G6, T2, P0, A3, L2 PLAN OF CARE Activity Details Follow Up prn Reason: Pending Test Ultrasound : OB, Complete >14 WEEKS VITAL SIGNS Height 63 in 2018-05-29 Weight 166.0 lbs 2018-05-29 Temperature 97.4 degrees Fahrenheit 2018-05-29 Heart Rate 88 bpm 2018-05-29 Respiratory Rate 20 2018-05-29 BMI 29.40 kg/m2 2018-05-29 Blood pressure systolic 120 mmHg 2018-05-29 Blood pressure diastolic 64 mmHg 2018-05-29 MEDICATIONS Medication Instructions Dosage Frequency Start Date End Date Duration Status ProAir HFA 108 (90 Base) MCG/ACT Inhalation every 4 hrs prn cough or wheeze 2 puffs as needed Nov, 05 days Not-Taking Amoxicillin 500 mg Orally 2 times a day 1 capsule 12h May,May 07 days Active Vitamins - (Dis) Active RESULTS No Results PROCEDURES Procedure Date Ordered Result Body Site URINALYSIS, AUTO, W/O SCOPE May 29, 2018 URINE CULTURE/COLONY COUNT May 29, 2018 INSTRUCTIONS MEDICATIONS ADMINISTERED No Known Medications MEDICAL (GENERAL) HISTORY Type Description Date Medical History anxiety attacks/ pt. was asked to wear a heart monitor, but refused due to cost. Surgical History section x2 2014/2012 Surgical History cyst removed from right wrist x2 with Dr. Rothman Hospitalization History see above surgeries
--- OUTSIDE RECORDS SUMMARY | 2018-09-03 21:32 | XMS REPORT ---
Author Author LASHAUN QUINN Organization [facility] Address [address] [place] [address] Care Team Providers Care Herbarium Curator Name Role Phone LASHAUN QUINN Unavailable PROBLEMS Type Condition ICD9-CM Code VRV42-HP Code Onset Dates Condition Status SNOMED Code Problem Previous section complicating O34.219 Active [id number] ALLERGIES No Known Allergies ENCOUNTERS Encounter Location Date Diagnosis [facility] [id number] [place] [address] 42060- 2424 Aug, [facility] [id number] [place] [address] 68845- 3532 Aug, [facility] [id number] [place] [address] 65638- 7482 Jul, [facility] [id number] [place] [address] 81432- 3677 Jul, [facility] [id number] [place] [address] 64463- 8274 Jul, Normal in multigravida Z34.80 ; 22 weeks gestation of Z3A.22 and Previous section complicating O34.219 [facility]ALK IN [facility]ARE [id number] [place] [address] 57941 -7946 Jul, Nausea and vomiting, intractability of vomiting not specified, unspecified vomiting type R11.2 and 22 weeks gestation of Z3A.22 [facility] WALK IN [facility] [id number] [place] [address] 16012 [address]1109 Jul, Viral gastroenteritis A08.4 ; Fever, unspecified fever cause R50.9 and Acute nasopharyngitis J00 [facility] [id number] [place] [address] 79557- 8935 17 Jun, 2018 [place] [address] [address] 14 May, 2018 Burning with urination R30.0 ; Second trimester Z34.92 ; 15 weeks gestation of Z3A.15 and UTI (urinary tract infection ) in in second trimester O23.[address] 47720- 5133 May, [facility] IN [address] [address] May, Dysuria R30.0 and Generalized abdominal pain R10.[address] 27204- 1181 Apr, Normal in multigravida Z34.80 ; care, subsequent in first trimester Z34.81 ; 10 weeks gestation of Z3A.10 and Previous section complicating O34.[address] 36222- 6127 Mar, [facility] IN [address] [address] Mar, Encounter for test, result positive Z32.[address] [address]2 Jun, Encounter for immunization Z23 [facility] IN [address] [address] Nov, Pharyngitis J02.9 and Bronchitis J40 IMMUNIZATIONS No Known Immunizations SOCIAL HISTORY Never Assessed REASON FOR VISIT OB Intake -- flores ramirez, patient states she is having nause and vomit after eating , constipation , left lower pelvic pain PLAN OF CARE Activity Details Follow Up 4 Weeks Reason: Pending Test URINE DRUG SCREEN (IN HOUSE) VITAL SIGNS Height 63 in 2018-04-30 Weight 172.0 lbs 2018-04-30 Temperature 98.0 degrees Fahrenheit 2018-04-30 Heart Rate 90 bpm 2018-04-30 Respiratory Rate 18 2018-04-30 BMI 30.468 kg/m2 2018-04-30 Blood pressure systolic 116 mmHg 2018-04-30 Blood pressure diastolic 70 mmHg 2018-04-30 MEDICATIONS Medication Instructions Dosage Frequency Start Date End Date Duration Status ProAir HFA 108 (90 Base) MCG/ACT Inhalation every 4 hrs prn cough or wheeze 2 puffs as needed Nov, 5 days Not-Taking Vitamins - (Dis) Active RESULTS No Results PROCEDURES Procedure Date Ordered Result Body Site COMPLETE CBC W/AUTO DIFF WBC April 30, 2018 BLOOD TYPING, ABO April 30, 2018 CULTURE, BACTERIA, OTHER April 30, 2018 TRICHOMONAS ASSAY W/OPTIC April 30, 2018 No Charge April 30, 2018 BLOOD TYPING, RH (D) April 30, 2018 RBC ANTIBODY SCREEN April 30, 2018 ASSAY THYROID STIM HORMONE April 30, 2018 RUBELLA ANTIBODY April 30, 2018 URINALYSIS, AUTO, W/O SCOPE April 30, 2018 SPECIMEN HANDLING April 30, 2018 VENIPUNCT, ROUTINE* April 30, 2018 URINE CULTURE/COLONY COUNT April 30, 2018 INSTRUCTIONS MEDICATIONS ADMINISTERED No Known Medications MEDICAL (GENERAL) HISTORY Type Description Date Medical History anxiety attacks/ pt. was asked to wear a heart monitor, but refused due to cost. Surgical History section x2 2014/2012 Surgical History cyst removed from right wrist x2 with Dr. Rothman Hospitalization History see above surgeries
--- OUTSIDE RECORDS SUMMARY | 2018-09-03 21:32 | XMS REPORT ---
Author Author LASHAUN QUINN Organization [facility] Address [address] [place] [address] Care Team Providers Care Grocery Associate Name Role Phone LASHAUN QUINN Unavailable PROBLEMS Type Condition ICD9-CM Code [id number] Code Onset Dates Condition Status SNOMED Code Problem Previous section complicating O34.219 Active [id number] ALLERGIES No Information ENCOUNTERS Encounter Location Date Diagnosis [facility] [id number] [place] [address] 79300- 9238 Aug, [facility] [id number] [place] [address] 56586- 7173 Aug, [facility] [id number] [place] [address] 32280- 5293 Jul, [facility] [id number] [place] [address] 87495- 1148 Jul, [facility] [id number] [place] [address] 52227- 6510 Jul, Normal in multigravida Z34.80 ; 22 weeks gestation of Z3A.22 and Previous section complicating O34.219 [facility] [id number] [place] [address] 98845 -1486 Jul, Nausea and vomiting, intractability of vomiting not specified, unspecified vomiting type R11.2 and 22 weeks gestation of Z3A.22 [facility] [id number] [place] [address] 24009 -3123 Jul, Viral gastroenteritis A08.4 ; Fever, unspecified fever cause R50.9 and Acute nasopharyngitis J00 [facility] [id number] [place] [address] 12371- 9856 Jun, [place] [id number] [place] [address] 60049- 9703 14 May, 2018 Burning with urination R30.0 ; Second trimester Z34.92 ; 15 weeks gestation of Z3A.15 and UTI (urinary tract infection ) in in second trimester O23.[address] 9[address]- 2924 May, [facility] IN [place] [id number] [place] [address] 00595 -3297 07 May, 2018 Dysuria R30.0 and Generalized abdominal pain R10.[address] 31563- 4433 Apr, Normal in multigravida Z34.80 ; care, subsequent in first trimester Z34.81 ; 10 weeks gestation of Z3A.10 and Previous section complicating O34.219 [place] [id number] [place] [address] 35594- 6467 Mar, [place] [id number] [place] [address] 01022 -5753 Mar, Encounter for test, result positive Z32.01 [place] [id number] [place] [address] 06861 -9192 Jun, Encounter for immunization Z23 [address] [address] Nov, Pharyngitis J02.9 and Bronchitis J40 IMMUNIZATIONS No Known Immunizations SOCIAL HISTORY Never Assessed REASON FOR VISIT PLAN OF CARE VITAL SIGNS MEDICATIONS Unknown [...]
--- OUTSIDE RECORDS SUMMARY | 2018-09-03 21:32 | XMS REPORT ---
Author Author LASHAUN QUINN Organization [facility] Address [address] [place] [address] Care Team Providers Care Drilling And Production Superintendent Name Role Phone LASHAUN QUINN Unavailable PROBLEMS Unknown Problems ALLERGIES No Known Allergies ENCOUNTERS Encounter Location Date Diagnosis [facility] [id number] [place] [address] 83682- 0766 Jun, [place] [id number] [place] [address] 99174- 5426 May, Burning with urination R30.0 ; Second trimester Z34.92 ; 15 weeks gestation of Z3A.15 and UTI (urinary tract infection ) in in second trimester O23.42 [facility] [id number] [place] [address] 47893- 9858 May, [facility] WALK IN [facility] [id number] [place] [address] 26101 -6416 May, Dysuria R30.0 and Generalized abdominal pain R10.84 [place] [id number] [place] [address] 52821- 7298 Apr, Normal in multigravida Z34.80 and care, subsequent in first trimester Z34.81 [facility] [address] [address] Mar, [facility] WALK IN [facility] [id number] [place] [address] 55515 -8177 Mar, Encounter for test, result positive Z32.01 [facility] WALK IN CARE [address] [place] [id number] [place] [address] 97630 -1554 Jun, Encounter for immunization Z23 [facility] [address] [place] [address] Nov, Pharyngitis J02.9 and Bronchitis J40 IMMUNIZATIONS No Known Immunizations SOCIAL HISTORY Never Assessed REASON FOR VISIT UTI symptoms , burning with urination -- flores ramirez, patient states she keeps puking everything she eats PLAN OF CARE Activity Details Follow Up 2 Weeks Reason: VITAL SIGNS Height 63 in 2018-06-05 Weight 172.0 lbs 2018-06-05 Temperature 98.0 degrees Fahrenheit 2018-06-05 Heart Rate 92 bpm 2018-06-05 Respiratory Rate 22 2018-06-05 BMI 30.468 kg/m2 2018-06-05 Blood pressure systolic 118 mmHg 2018-06-05 Blood pressure diastolic 70 mmHg 2018-06-05 MEDICATIONS Medication Instructions Dosage Frequency Start Date End Date Duration Status Vitamins - (Dis) Active Macrobid 100 mg Orally 2 times a day 1 capsule with food 12h May, May, 7 day(s) Active RESULTS No Results PROCEDURES Procedure Date Ordered Result Body Site URINALYSIS, AUTO, W/O SCOPE Jun 05, 2018 URINE CULTURE/COLONY COUNT Jun 05, 2018 INSTRUCTIONS MEDICATIONS ADMINISTERED No Known Medications MEDICAL (GENERAL) HISTORY Type Description Date Medical History anxiety attacks/ pt. was asked to wear a heart monitor, but refused due to cost. Surgical History section x2 2014/2012 Surgical History cyst removed from right wrist x2 with Dr. Rothman Hospitalization History see above surgeries
--- OUTSIDE RECORDS SUMMARY | 2018-09-03 21:32 | XMS REPORT ---
Author Author LASHAUN QUINN Organization [facility] Address [address] [place] [address] Care Team Providers Care Branch Logistics Supervisor Name Role Phone LASHAUN QUINN Unavailable PROBLEMS Type Condition ICD9-CM Code QWD03-NN Code Onset Dates Condition Status SNOMED Code Problem Previous section complicating O34.219 Active [id number] ALLERGIES No Information ENCOUNTERS Encounter Location Date Diagnosis [facility] [id number] [place] [phone] Aug, [facility] [id number] [place] [phone] Aug, [facility] [id number] [place] [phone] Jul, [facility] [id number] [place] [phone] Jul, [facility] [id number] [place] [phone] Jul, Normal in multigravida Z34.80 ; 22 weeks gestation of Z3A.22 and Previous section complicating O34.219 [facility] [id number] [place] [phone] Jul, Nausea and vomiting, intractability of vomiting not specified, unspecified vomiting type R11.2 and 22 weeks gestation of Z3A.22 [facility] [id number] [place] [phone] Jul, Viral gastroenteritis A08.4 ; Fever, unspecified fever cause R50.9 and Acute nasopharyngitis J00 [facility] [id number] [place] [phone] Jun, [id number] [place] [address] [phone] 14 May, 2018 Burning with urination R30.0 ; Second trimester Z34.92 ; 15 weeks gestation of Z3A.15 and UTI (urinary tract infection ) in in second trimester O23.[address] [phone] May, [facility] [address] [id number] [place] [phone] 07 May, 2018 Dysuria R30.0 and Generalized abdominal pain R10.84 [id number] [place] [address] [phone] Apr, Normal in multigravida Z34.80 ; care, subsequent in first trimester Z34.81 ; 10 weeks gestation of Z3A.10 and Previous section complicating O34.219 [id number] [place] [phone] Mar, [address] [id number] [place] [phone] Mar, Encounter for test, result positive Z32.01 [address] [id number] [place] [phone] Jun, Encounter for immunization Z23 [address] [phone] Nov, Pharyngitis J02.9 and Bronchitis J40 IMMUNIZATIONS [...]
--- OUTSIDE RECORDS SUMMARY | 2018-09-03 21:33 | XMS REPORT | Continuity of Care Document ---
Author Author [facility] Organization [facility] Address Unknown Phone Unavailable Allergies Active Description Code Type Severity Reaction Onset Reported/Identified Relationship to Patient Clinical Status Yes No Known Drug Allergies [id number] Drug Allergy Unknown N/A 12/15/2014 Medications There [...] Ot V27.0 DELIVER- SINGLE LIVEBORN 07/27/2015 RAÚL AKTINSON Ot M67.431 GANGLION, RIGHT WRIST 07/27/2015 RAÚL [...] SYNOVITIS AND TENOSYNOVITIS, UNSPECIFIED 04/21/2017 NAOMI MCKEON CASSANDRA CONSULTANT Ot M79.645 PAIN IN LEFT FINGER(S) 04/21/2017 STEWART CEJA MD Ot M67.431 GANGLION, RIGHT WRIST 04/21/2017 MARCIAL GONZLAEZ, STEWART Demarco Ot Z01.818 ENCOUNTER FOR OTHER [...] OF NORMAL PREGNANC 05/22/2018 CHEYENNE GONZALEZ, LASHAUN R Ot Z3A.13 13 WEEKS GESTATION OF 06/06/2018 Ot F17.210 NICOTINE DEPENDENCE, CIGARETTES, UNCOMPL 06/06/2018 Ot F41.9 ANXIETY DISORDER, UNSPECIFIED 06/06/2018 Ot K21.9 GASTRO- ESOPHAGEAL REFLUX DISEASE WITHOUT 06/06/2018 Ot O99.332 SMOKING ( TOBACCO) COMPLICATING 06/06/2018 Ot O99.342 OTH MENTAL DISORDERS COMP , SEC 06/06/2018 Ot O99.612 DISEASES OF THE DGSTV SYS COMP 06/06/2018 Ot O99.89 OTH DISEASES AND CONDITIONS COMPL PREG/C 06/06/2018 Ot Z3A.15 15 WEEKS GESTATION OF 06/06/2018 Ot Z82.49 FAMILY HX OF ISCHEM HEART DIS AND OTH DI 06/06/2018 Ot Z87.59 PERSONAL HISTORY OF COMP OF [...] culture - 09/02/17 21:28 Bacterial urine culture [id number] NRG COLONY COUNT 10,000/ML - 100,000/ML NRG [...] NRG STATEMENT OF ADEQUACY: NRG INTERPRETATION/RESULT: NRG RN FLIGHT: NRG HPV mRNA E6/E7, SUREPATH VIAL Not Detected NOT DETECTED INFECTION: NRG COMMENT NRG CULTURE, URINE - 05/29/18 10:42 CULTURE, URINE, ROUTINE SEE NOTE NRG CULTURE, URINE - 06/05/18 11:00 CULTURE, URINE, ROUTINE SEE NOTE NRG Encounters ACCT No. Visit Date/Time Discharge Status Pt. Type Provider Facility Loc./Unit Complaint [id number] 05/21/2018 12:24:00 05/21/2018 23:59:59 CLS Outpatient CHEYENNE GONZALEZ, LASHAUN Hinson [facility] RAD NORMAL IN MULTIGRAVIDA [id number] 11/05/2017 22:33:00 11/06/2017 00:12:00 DIS Emergency LAZARO GONZALEZ, VICKIE Link [facility] ER CHEST PAIN ANXIETY POSS MISCARRIAGE [id number] 09/22/2017 21:47:00 09/22/2017 23:11:00 DIS Emergency CON VELAZQUEZ MD [facility] ER ITCHING/RASH [id number] 09/17/2017 02:19:00 09/17/2017 03:06:00 DIS Emergency DIMITRY COLON DO [facility] ER WHOLE BODY RASH [id number] 09/02/2017 21:08:00 09/02/2017 23:35:00 DIS Emergency RAÚL ATKINSON [facility] ER VOMITTING BLOOD AFTER A NIGHT OUT OF DRINKING [id number] 08/17/2017 22:27:00 08/18/2017 03:30:00 DIS Emergency DIMITRY COLON DO [facility] ER ABD PAIN [id number] 04/21/2017 22:22:00 04/21/2017 23:12:00 DIS Emergency NAOMI MCKEON APRN [facility] ER LT HAND PAIN [id number] 08/05/2015 11:00:00 08/05/2015 17:25:00 DIS Outpatient MARCIAL GONZALEZ, STEWART Demarco [facility] SDC GANGLION CYST RIGHT WRIST [id number] 08/04/2015 10:46:00 08/04/2015 23:59:59 CLS Outpatient MARCIAL GONZALEZ, STEWART Demarco [facility] PREOP GANGLION CYST RIGHT WRIST [id number] 07/27/2015 21:59:00 07/27/2015 23:47:00 DIS Emergency RAÚL ATKINSON [facility] ER RT ARM PAIN [id number] 06/06/2018 00:44:00 Document Registration [id number] 12/26/2014 12:05:00 Document Registration [id number] 12/15/2014 10:57:00 Document Registration [id number] 05/29/2018 09:00:00 05/29/2018 23:59:59 CLS Outpatient REJI TINOCO DO [facility] [id number] 06/05/2018 10:20:00 Document Registration [id number] 05/29/2018 09:00:00 Document Registration [id number] 04/30/2018 10:00:00 Document Registration
[2018-09-03] MEDS ORDERED: D5 1/2 NS 1000 ML IV SOLUTION 1,000 ML IV ONE (21:38)
[2018-09-03] MEDS: D5 1/2 NS 1000 ML IV SOLUTION 1,000 ML IV SCH (21:42)
[2018-09-03 22:00] VITALS: BP 103/67
[2018-09-03] MEDS ORDERED: fentaNYL INJECTION 100 MCG/2 ML AMP IVP PRN (22:15)
[2018-09-03 23:00] VITALS: BP 111/75
[2018-09-04] VITALS (9 sets, daily range): BP systolic 96–143; BP diastolic 52–74
[2018-09-04 05:51] LABS: BASOPHILS % (AUTO) 0 % (0-10); EOSINOPHILS # (AUTO) 0.2 10^3/uL (0.0-0.3); EOSINOPHILS % (AUTO) 2 % (0-10); HEMATOCRIT 32 % (35-52); HEMOGLOBIN 10.7 G/DL (11.5-16.0); LYMPHOCYTES # (AUTO) 2.3 X 10^3 (1.0-4.0); LYMPHOCYTES % (AUTO) 27 % (12-44); MEAN CORPUSCULAR HEMOGLOBIN 28 PG (25-34); MEAN CORPUSCULAR HGB CONC 34 G/DL (32-36); MEAN CORPUSCULAR VOLUME 82 FL (80-99); MEAN PLATELET VOLUME 8.7 FL (7.4-10.4); MONOCYTES # (AUTO) 0.6 X 10^3 (0.0-1.0); MONOCYTES % (AUTO) 7 % (0-12); NEUTROPHILS # (AUTO) 5.2 X 10^3 (1.8-7.8); NEUTROPHILS % (AUTO) 63 % (42-75); PLATELET COUNT 329 10^3/uL (130-400); RED BLOOD COUNT 3.85 10^6/uL (4.35-5.85); WHITE BLOOD COUNT 8.3 10^3/uL (4.3-11.0)
[2018-09-04] MEDS: HYDROcodone/APAP 5 MG/325 MG (LORTAB) TAB PO PRN ×3 (06:08→14:49)
[2018-09-04 06:12] LABS: ALANINE AMINOTRANSFERASE 8 U/L (0-55); ALBUMIN 2.9 GM/DL (3.2-4.5); ALKALINE PHOSPHATASE 95 U/L (40-136); BILIRUBIN,TOTAL 0.3 MG/DL (0.1-1.0); BUN/CREATININE RATIO 4; CALCIUM 8.3 MG/DL (8.5-10.1); CARBON DIOXIDE 21 MMOL/L (21-32); CHLORIDE 109 MMOL/L (98-107); CREATININE SERUM 0.49 MG/DL (0.60-1.30); GFR ESTIMATED > 60; GLUCOSE 97 MG/DL (70-105); POTASSIUM 3.1 MMOL/L (3.6-5.0); SODIUM 137 MMOL/L (135-145); TOTAL PROTEIN 5.6 GM/DL (6.4-8.2)
[2018-09-04] MEDS ORDERED: FLU QUADRIvalent (5+ YOA) 2018-2019 (AFLURIA) 0.5 ML IM ONE (07:15)
[2018-09-04] MEDS: POTASSIUM CL 10MEQ/50ML IVPB 50 ML IV SCH ×3 (07:52→10:15)
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
--- NOTE | 2018-09-04 11:10 | Diagnostic Imaging Report ---
CLINICAL INDICATION: Patient with thyroid nodule seen on CT scan. COMPARISONS: CT scan of the head and cervical spine without contrast dated 09/03/2018. FINDINGS: THYROID NODULES: There is a 1.7 cm x 1.2 cm x 1.4 cm heterogeneous hypo-/isoechoic nodular area involving the mid to upper pole of the right thyroid gland. There is no significant central Doppler flow. THYROID GLAND: Besides the thyroid nodule, the thyroid gland has normal size, shape and echogenicity. The right lobe measures 4.5 cm x 2.0 cm x 1.8 cm and the left lobe measures 4.4 cm x 1.6 cm x 1.3 cm in their three dimensions. ISTHMUS: The isthmus is unremarkable and measures 4 mm in thickness. IMPRESSION: 1: There is a 1.7 cm heterogeneous right thyroid gland nodule which is predominantly solid. Followup thyroid ultrasound is suggested to evaluate for stability. 2: The remainder of the thyroid gland is unremarkable. Dictated by: Dictated on workstation # [id number]
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
[2018-09-04] MEDS: D5 1/2 NS 1000 ML IV SOLUTION 1,000 ML IV SCH (13:46)
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
[2018-09-04] MEDS ORDERED: POTA25TA7 PO (15:35)
--- NOTE | 2018-09-04 15:37 | Discharge Inst-Surgical ---
Discharge Inst-Surgical Depart Medication/Instructions New, Converted or Re-Newed RX: Transmitted to Pharmacy Patient Instructions Follow up Appt: Make appointment for 1 week with OB. Instructions: No strenuous activity. May shower in 24 hours, no tub bath or soaking. Use incentive spirometer at home as directed. No Smoking Symptoms to Report: Appetite Changes, Extremity Discoloration, Numbness/Tingling, Swelling Increased , Bleeding Excessive, Eyesight Changes, Pain Increased, Urine Color Change, Constipation(Persistent), Fever over 101 degree F, Pain/Pressure in chest, Urinating Difficulty, Cough Up/Vomit Blood, Heart Beat Irreg/Pounding, Pain/ Pressure in jaw, Vaginal Bleeding Increase, Cramps in feet or legs, Lightheadedness, Pain/Pressure in shoulder, Diarrhea(Persistent), Memory Changes Suddenly, Questions/Concerns, Weight gain consecutive days, Dizziness/ Fainting, Nausea/Vomiting, Shortness of Breath, Weight gain over 2 pounds If questions or concerns contact your physician Or seek help at emergency department. Activity Activity as Tolerated: Yes Driving Instructions: No Driving/Refer to Dr. Thacker Discharge Diet: No Restrictions Diet After 24 Hours: Clear Liquid if Nauseous If Any Problems/Questions/Issu: Contact Your Physician, Go to Emergency Room Skin/Wound Care Infection Signs and Symptoms: Increased Swelling, Temperature Above 101 F Bathing Instructions: RICARDO Kaplan DO Sep 04, 2018 15:37
== END 2018-09-04 18:00 | disposition home or self-care (01) ==
LOC: EDUNIT# 17:40 → ER 17:41 → UNDOADMOB 19:30 → LDRP 19:30
PROVIDERS: ADMIT Surgery; ATTEND Surgery
DX: S06.0X9A Concussion with loss of consciousness of unspecified duration, initial encounter (principal); O23.43 Unspecified infection of urinary tract in pregnancy, third trimester; M54.5 Low back pain; R20.0 Anesthesia of skin; V47.5XXA Car driver injured in collision with fixed or stationary object in traffic accident, initial encounter; Z3A.28 28 weeks gestation of pregnancy
CPT/HCPCS: 36415; 70450; 72100; 72125; 72148; 72170; 76536; 76700; 76815; 80048; 80053; 80076; 80320; 81000; 85025; 85027; 87088; 96361; 96374; 96375; 96376; G0378

== ENCOUNTER 2018-10-02 16:00 | Outpatient (CLI) | payer OTHER ==
[~2018-10-02] VITALS: Ht 160 cm; Wt 77.1 kg
[~2018-10-02 16:00] MED LIST changes: +POTA25TA7 PO
[2018-10-02 16:15] VITALS: BP 110/66
[2018-10-02 16:36] LABS: BILIRUBIN,URINE NEGATIVE (NEGATIVE); CLARITY,URINE CLEAR; COLOR,URINE YELLOW; GLUCOSE, URINE (UA) 1+ (NEGATIVE); KETONES,URINE NEGATIVE (NEGATIVE); LEUKOCYTE ESTERASE ,URINE 1+ (NEGATIVE); NITRITE,URINE NEGATIVE (NEGATIVE); PH,URINE 7 (5-9); PROTEIN,URINE 1+ (NEGATIVE); UROBILINOGEN,URINE NORMAL (NORMAL)
[2018-10-02] MEDS ORDERED: PNV11TAB5 PO (16:39)
[2018-10-02 17:03] LABS: WBC,URINE 0-2 /HPF
[2018-10-02] MEDS ORDERED: FLU QUADRIvalent (5+ YOA) 2018-2019 (AFLURIA) 0.5 ML IM ONE (17:45)
--- NOTE | 2018-10-03 15:46 | Physician Query-Final Dx ---
EZIO CORDON 10/03/18 1546: Clinic Account Progress/Dx Physician Query: Please give diagnosis Date of Service Oct 02, 2018 at 16:00 LASHAUN QUINN MD 10/03/182058: Clinic Account Progress/Dx DIAGNOSIS: Diagnosis Low back pain UTI 32 week gestation Third trimester EZIO CORDON Oct 03, 2018 15:46 LASHAUN QUINN MD Oct 03, 2018 20:59
== END 2018-10-02 17:28 | disposition home or self-care (01) ==
LOC: LDRP 16:00 → WSo 16:00
PROVIDERS: ATTEND Family Medicine
DX: O23.43 Unspecified infection of urinary tract in pregnancy, third trimester (principal); O26.893 Other specified pregnancy related conditions, third trimester; M54.5 Low back pain; Z3A.32 32 weeks gestation of pregnancy
CPT/HCPCS: 81000; 87077; 87088; 99212

== ENCOUNTER 2018-11-19 12:46 | Outpatient (CLI) | payer OTHER ==
[~2018-11-19] VITALS: Ht 160 cm; Wt 75.4 kg
[~2018-11-19 12:46] MED LIST changes: +PNV11TAB5 PO
[2018-11-22] MEDS ORDERED: ACHD5005 PO (07:11)
[2018-11-22] MEDS ORDERED: IBUP-844 PO (07:11)
[2018-11-22] MEDS ORDERED: DOCU100C37 PO (07:11)
== END 2018-11-19 14:54 | disposition home or self-care (01) ==
LOC: PREOP 12:46
PROVIDERS: ATTEND Obstetrics & Gynecology
DX: Z01.818 Encounter for other preprocedural examination (principal)
CPT/HCPCS: 87081

== ENCOUNTER 2018-11-19 13:25 | Outpatient (CLI) | payer OTHER ==
--- NOTE | 2018-11-19 13:20 | NUR ---
CECILIA ESCOBAR presented to unit via WHEELCHAIR FROM PRE-OP REGISTRATION, accompanied by PREOP REGISTRATION RN, with c/o ABDOMINAL PAIN/PRESSURE. CECILIA ESCOBAR weighed, gowned, voided, and to bed. EFHM and TOCO applied, VS taken. CECILIA ESCOBAR oriented to bed controls, call light, TV, heat, and A/C controls.
[2018-11-19 13:25] VITALS: BP 113/78
--- NOTE | 2018-11-19 14:03 | NUR ---
dr murillo called at this time for pt report. pt scheduled for r cs this with dr prater. pt was in pre-op registration today. pre op rn stated that pt appeared to be uncomfortable and brought her up to ob to be evaluated. pt co pain/pressure in lower abdomen that is constant. sve closed, thick by this rn. urine dip results. uc x1 with some irritability while on monitor for at least [address] murillo gives orders to dc to home at this time.
--- NOTE | 2018-11-20 09:56 | Physician Query-Final Dx ---
AISHA WANG 11/20/18 0956: Clinic Account Progress/Dx Physician Query: Please give a diagnosis and include the weeks of gestation thank you Date of Service Nov 19, 2018 at 13:25 REJI TINOCO DO 11/25/18 0625: Clinic Account Progress/Dx DIAGNOSIS: Diagnosis 39w1d GA abdominal pressure AISHA WANG Nov 20, 2018 09:56 REJI TINOCO DO Nov 25, 2018 06:25
[2018-11-22] MEDS ORDERED: IBUP-844 PO (07:11)
[2018-11-22] MEDS ORDERED: ACHD5005 PO (07:11)
[2018-11-22] MEDS ORDERED: DOCU100C37 PO (07:11)
== END 2018-11-19 14:15 | disposition home or self-care (01) ==
LOC: WSo 13:25 → LDRP 13:27 → WSo 14:15
PROVIDERS: ATTEND Family Medicine
DX: O99.89 Other specified diseases and conditions complicating pregnancy, childbirth and the puerperium (principal); R10.30 Lower abdominal pain, unspecified; Z3A.39 39 weeks gestation of pregnancy
CPT/HCPCS: 99213

== ENCOUNTER 2018-11-21 14:05 | Outpatient (CLI) | payer OTHER ==
[~2018-11-21] VITALS: Ht 160 cm; Wt 74.8 kg
--- NOTE | 2018-11-21 14:00 | NUR ---
CECILIA ESCOBAR Y presented to unit via ambulatory from home, accompanied by female friend, with c/o CONTRACTIONS. CECILIA ESCOBAR weighed, gowned, voided, and to bed. EFHM and TOCO applied, VS taken. CECILIA ESCOBAR oriented to bed controls, call light, TV, heat, and A/C controls.
[2018-11-21 14:06] VITALS: BP 113/81
--- NOTE | 2018-11-21 14:54 | NUR ---
Dr Farias notified of a 39.3 weeks repeat with complaints of contractions. 2 contractions noted in 40 minutes, although pt states she is having them in lower abdomen. Cervix closed. Physician wants to observe another hour and recheck cervix and return phone call to him.
--- NOTE | 2018-11-21 16:14 | NUR ---
Dr Farias notified of no cervical change and irregular contractions. Orders for discharge.
--- NOTE | 2018-11-21 16:35 | NUR ---
Dressed and ambulated to exit with 2 females. OB outpt home instructions given - verbalized understanding. To return in am for repeat .
[2018-11-21 17:42] LABS: AMPHETAMINE SCREEN, URINE NEGATIVE (NEGATIVE); BARBITURATE SCREEN URINE NEGATIVE (NEGATIVE); BENZODIAZEPINES SCREEN URINE NEGATIVE (NEGATIVE); CANNABINOID SCREEN, URINE NEGATIVE (NEGATIVE); COCAINE SCREEN URINE NEGATIVE (NEGATIVE); METHADONE STAT NEGATIVE (NEGATIVE); METHAMPHETAMINE SCREEN URINE S NEGATIVE (NEGATIVE); OPIATE SCREEN URINE NEGATIVE (NEGATIVE); OXYCODONE STAT NEGATIVE (NEGATIVE); PROPOXYPHENE STAT NEGATIVE (NEGATIVE); TRICYCLIC ANTIDEPRESSANTS SCRE NEGATIVE (NEGATIVE)
[2018-11-22] MEDS ORDERED: IBUP-844 PO (07:11)
[2018-11-22] MEDS ORDERED: DOCU100C37 PO (07:11)
[2018-11-22] MEDS ORDERED: ACHD5005 PO (07:11)
== END 2018-11-21 16:35 ==
LOC: WSo 14:05 → LDRP 14:06 → WSo 16:35
PROVIDERS: ATTEND Obstetrics & Gynecology
DX: O47.1 False labor at or after 37 completed weeks of gestation (principal); O34.219 Maternal care for unspecified type scar from previous cesarean delivery; Z3A.39 39 weeks gestation of pregnancy
CPT/HCPCS: 80306; 99213

== ENCOUNTER 2018-11-22 06:15 | Inpatient (IN) | payer OTHER ==
[~2018-11-22] VITALS: Ht 160 cm; Wt 74.5 kg
--- NOTE | 2018-11-22 06:13 | NUR ---
CECILIA ESCOBAR presented to unit via AMBULATION from HOME, accompanied by FRIENDS, FOR REPEAT SECTION. CECILIA ESCOBAR weighed, gowned, voided, and to bed. EFHM and TOCO applied, VS taken. CECILIA ESCOBAR oriented to bed controls, call light, TV, heat, and A/C controls.
[~2018-11-22 06:15] MED LIST changes: +CITRIC ACID/SOB CIT (BICITRA) 30 ML UDC ONE; +FAMOTIDINE 20MG/2ML IV (PEPCID) ONE; +LACTATED RINGERS 1,000 ML IV ONE; +METOCLOPRAMIDE INJ 10 MG/2 ML (REGLAN) ONE; +ceFAZolin 2 GM IV Premixed 50 ML ONE
[2018-11-22 06:20] VITALS: BP 121/75
--- OUTSIDE RECORDS SUMMARY | 2018-11-22 06:20 | XMS REPORT ---
Author Author LASHAUN QUINN Organization [facility] Address [address] [place] [address] Care Team Providers Care Mri Ct Tech Name Role Phone LASHAUN QUINN Unavailable PROBLEMS Type Condition ICD9-CM Code [id number] Code Onset Dates Condition Status SNOMED Code Problem Previous section complicating O34.219 Active [id number] ALLERGIES No Information ENCOUNTERS Encounter Location Date Diagnosis [facility] [id number] [place] [phone] Sep, [facility] [id number] [place] [address]58- 5704 Aug, Third trimester Z33.1 ; 29 weeks gestation of Z3A.29 and Previous section complicating O34.219 [facility] [id number] [place] [address] [phone] Aug, [facility] [id number] [place] [address] [phone] Jul, [facility] [id number] [place] [address] [phone]- 4208 Jul, [facility] [id number] [place] [address] [phone]- 2454 Jul, Normal in multigravida Z34.80 ; 22 weeks gestation of Z3A.22 and Previous section complicating O34.219 [facility] [id number] [place] [phone] -[phone] Jul, Nausea and vomiting, intractability of vomiting not specified, unspecified vomiting type R11.2 and 22 weeks gestation of Z3A.22 [facility] [id number] [place] [phone] Jul, Viral gastroenteritis A08.4 ; Fever, unspecified fever cause R50.9 and Acute nasopharyngitis [address] [place] [id number] [place] [phone]- [address] Jun, [place] [id number] [place] [address]60- [address] May, Burning with urination R30.0 ; Second trimester Z34.92 ; 15 weeks gestation of Z3A.15 and UTI (urinary tract infection ) in in second trimester O23.[address] [address] 09 May, 2018 [facility] IN [place] [address] [address] May, Dysuria R30.0 and Generalized abdominal pain R10.[address] [address] Apr, Normal in multigravida Z34.80 ; care, subsequent in first trimester Z34.81 ; 10 weeks gestation of Z3A.10 and Previous section complicating O34.219 [place] [id number] [place] [address] [phone] Mar, [facility] [place] [id number] [place] [phone] Mar, Encounter for test, result positive Z32.01 [facility] [place] [id number] [place] [phone] Jun, Encounter for immunization Z23 [facility] [place] [address] [address] Nov, Pharyngitis J02.9 and Bronchitis J40 IMMUNIZATIONS No Known Immunizations SOCIAL HISTORY Never Assessed REASON FOR VISIT OB f/u -- flores ramirez, patient is refusing to do 1 hr GTT test today PLAN OF CARE Activity Details Follow Up 2 Weeks Reason: Pending Test UA OB DIP (IN HOUSE) VITAL SIGNS Height 63 in 2018-09-12 Weight 168.0 lbs 2018-09-12 Temperature 97.0 degrees Fahrenheit 2018-09-12 BMI 29.76 kg/m2 2018-09-12 Blood pressure systolic 128 mmHg 2018-09-12 Blood pressure diastolic 80 mmHg 2018-09-12 MEDICATIONS Medication Instructions Dosage Frequency Start Date End Date Duration Status Vitamins - (Dis) Active RESULTS No Results PROCEDURES Procedure Date Ordered Result Body Site URINE-NO MICRO Sep 12, 2018 INSTRUCTIONS MEDICATIONS ADMINISTERED No Known Medications MEDICAL (GENERAL) HISTORY Type Description Date Medical History anxiety attacks/ pt. was asked to wear a heart monitor, but refused due to cost. Surgical History section x2 2014/2012 Surgical History cyst removed from right wrist x2 with Dr. Rothman Hospitalization History see above surgeries
--- OUTSIDE RECORDS SUMMARY | 2018-11-22 06:20 | XMS REPORT ---
Author Author LASHAUN QUINN Organization [facility] Address [address] [place] [address] Care Team Providers Care Door Core Assembler Name Role Phone LASHAUN QUINN Unavailable PROBLEMS Type Condition ICD9-CM Code QKY74-CE Code Onset Dates Condition Status SNOMED Code Problem Previous section complicating O34.219 Active [id number] ALLERGIES No Information ENCOUNTERS Encounter Location Date Diagnosis [facility] [id number] [place] [phone] Sep, [facility] [id number] [place] [address] [phone]- 2755 Aug, Third trimester Z33.1 ; 29 weeks gestation of Z3A.29 and Previous section complicating O34.219 [facility] [id number] [place] [phone] Aug, [facility] [id number] [place] [address] [phone]- [phone] Jul, [facility] [id number] [place] [address] 94753- 9857 Jul, [facility] [id number] [place] [address]69- [address] Jul, Normal in multigravida Z34.80 ; 22 weeks gestation of Z3A.22 and Previous section complicating O34.219 [facility] [id number] [place] [phone] -[phone] Jul, Nausea and vomiting, intractability of vomiting not specified, unspecified vomiting type R11.2 and 22 weeks gestation of Z3A.22 [facility] [id number] [place] [phone] Jul, Viral gastroenteritis A08.4 ; Fever, unspecified fever cause R50.9 and Acute nasopharyngitis [address] [place] [id number] [place] [address] 6[address]- [address] 17 Jun, 2018 [place] [id number] [place] [address] 25228- [address] May, Burning with urination R30.0 ; Second trimester Z34.92 ; 15 weeks gestation of Z3A.15 and UTI (urinary tract infection ) in in second trimester O23.[address] [address] 09 May, 2018 [facility] [place] [id number] [place] [phone] May, Dysuria R30.0 and Generalized abdominal pain R10.84 [place] [address] [address] 09 Apr, 2018 Normal in multigravida Z34.80 ; care, subsequent in first trimester Z34.81 ; 10 weeks gestation of Z3A.10 and Previous section complicating O34.219 [place] [address] [id number] [place] [address] 30[address]- [phone] Mar, [facility] [place] [address] [id number] [place] [phone] Mar, Encounter for test, result positive Z32.01 [facility] [place] [address] [id number] [place] [phone] [phone] Jun, Encounter for immunization Z23 [facility] [place] [address] [address] Nov, Pharyngitis J02.9 and Bronchitis J40 IMMUNIZATIONS No Known Immunizations SOCIAL HISTORY Never Assessed REASON FOR VISIT Phone Call PLAN OF CARE VITAL SIGNS MEDICATIONS Unknown [...]
--- OUTSIDE RECORDS SUMMARY | 2018-11-22 06:20 | XMS REPORT ---
Author Author LASHAUN QUINN Organization [facility] Address [address] [place] [address] Care Team Providers Care Reconciliation Analyst Name Role Phone LASHAUN QUINN Unavailable PROBLEMS Type Condition ICD9-CM Code [id number] Code Onset Dates Condition Status SNOMED Code Problem Previous section complicating O34.219 Active [id number] ALLERGIES No Known Allergies ENCOUNTERS Encounter Location Date Diagnosis [facility] [id number] [place] [address] [phone]- [phone] Oct, [facility] [id number] [place] [address] [phone]- [phone] Oct, [facility] [id number] [place] [address] 95103- 1584 Oct, [facility] [id number] [place] [address] 46226- 6303 Sep, 32 weeks gestation of Z3A.32 ; Third trimester Z34.93 ; Encounter for immunization Z23 ; Dysuria R30.0 ; Acute bilateral low back pain without sciatica M54.5 and Previous section complicating O34.219 [facility] [id number] [place] [address] 21808- [phone] Sep, [facility] [id number] [place] [address] 34385- 3662 Aug, Third trimester Z33.1 ; 29 weeks gestation of Z3A.29 and Previous section complicating O34.219 [facility] [id number] [place] [address] 54544- 0979 Aug, [facility] [id number] [place] [address] [phone]- [phone] Jul, [place] [id number] [place] [address] 81272- 1182 Jul, [place] [id number] [place] [address] 56122- 8570 Jul, Normal in multigravida Z34.80 ; 22 weeks gestation of Z3A.22 and Previous section complicating O34.219 [facility] [place] [id number] [place] [address] 12576 -[phone] Jul, Nausea and vomiting, intractability of vomiting not specified, unspecified vomiting type R11.2 and 22 weeks gestation of Z3A.22 [facility] [place] [id number] [place] [address] [phone] -[phone] Jul, Viral gastroenteritis A08.4 ; Fever, unspecified fever cause R50.9 and Acute nasopharyngitis J00 [place] [id number] [place] [address] 02158- 6785 Jun, [place] [id number] [place] [address] 24523- 7611 May, Burning with urination R30.0 ; Second trimester Z34.92 ; 15 weeks gestation of Z3A.15 and UTI (urinary tract infection ) in in second trimester O23.42 [place] [id number] [place] [address] 37072- [phone] May, [facility] [place] [id number] [place] [address] [phone] -[phone] May, Dysuria R30.0 and Generalized abdominal pain R10.84 [place] [id number] [place] [address] 48733- 9995 Apr, Normal in multigravida Z34.80 ; care, subsequent in first trimester Z34.81 ; 10 weeks gestation of Z3A.10 and Previous section complicating O34.219 [place] [address] [place] [phone] 289[address] Mar, [facility] [address] [facility] [id number] [address] Mar, Encounter for test, result positive Z32.01 [facility] [id number] [phone] Jun, Encounter for immunization Z23 [facility] [address] [facility] [id number], [place] [phone] Nov, Pharyngitis J02.9 and Bronchitis J40 IMMUNIZATIONS Vaccine Route Administration Date Status TDAP (BOOSTRIX) IM Intramuscular Oct 03, 2018 Administered SOCIAL HISTORY Never Assessed REASON FOR VISIT OB [id number]/u--tcuppettRN PLAN OF CARE Activity Details Follow Up 3 Weeks Reason: Pending Test GLUCOSE GARRET 1 HOUR VITAL SIGNS Height 63 in 2018-10-03 Weight 169.5 lbs 2018-10-03 Temperature 98.1 degrees Fahrenheit 2018-10-03 Heart Rate 72 bpm 2018-10-03 Respiratory Rate 18 2018-10-03 BMI 30.026 kg/m2 2018-10-03 Blood pressure systolic 104 mmHg 2018-10-03 Blood pressure diastolic 68 mmHg 2018-10-03 MEDICATIONS Medication Instructions Dosage Frequency Start Date End Date Duration Status Macrobid 100 mg Orally every 12 hrs 1 capsule with food 12h Sep, 7 day(s) Active Vitamins - (Dis) Active Cyclobenzaprine HCl 10 mg Orally Once daily at bedtime 1 tablet at bedtime Sep, 5 days Active RESULTS No Results PROCEDURES Procedure Date Ordered Result Body Site URINALYSIS, AUTO, W/O SCOPE Oct 03, 2018 URINE CULTURE/COLONY COUNT Oct 03, 2018 GLUCOSE TEST Oct 03, 2018 COMPLETE CBC W/AUTO DIFF WBC Oct 03, 2018 SINGLE IMMUNIZATION ADMIN Oct 03, 2018 TDAP (BOOSTRIX) Oct 03, 2018 INSTRUCTIONS MEDICATIONS ADMINISTERED No Known Medications MEDICAL (GENERAL) HISTORY Type Description Date Medical History anxiety attacks/ pt. was asked to wear a heart monitor, but refused due to cost. Surgical History section x2 Surgical History cyst removed from right wrist x2 with Dr. Rothman Hospitalization History see above surgeries
--- OUTSIDE RECORDS SUMMARY | 2018-11-22 06:20 | XMS REPORT ---
Author Author LASHAUN QUINN Organization [facility] Address [address] [place] [address] Care Team Providers Care Conference Services Coordinator Name Role Phone LASHAUN QUINN Unavailable PROBLEMS Type Condition ICD9-CM Code OVY40-UG Code Onset Dates Condition Status SNOMED Code Problem Previous section complicating O34.219 Active [id number] ALLERGIES No Information ENCOUNTERS Encounter Location Date Diagnosis [facility] [id number] [place] [address] 45837- [phone] Sep, [facility] [id number] [place] [address] 55492- 5609 Aug, Third trimester Z33.1 ; 29 weeks gestation of Z3A.29 and Previous section complicating O34.219 [facility] [id number] [place] [address] [phone] Aug, [facility] [id number] [place] [address] 47882- 8952 Jul, [facility] [id number] [place] [address] 03156- 7685 Jul, [facility] [id number] [place] [address] 62255- 3292 Jul, Normal in multigravida Z34.80 ; 22 weeks gestation of Z3A.22 and Previous section complicating O34.219 [facility] [id number] [place] [address] 18196 -5266 Jul, Nausea and vomiting, intractability of vomiting not specified, unspecified vomiting type R11.2 and 22 weeks gestation of Z3A.22 [facility] [id number] [place] [address] [phone] -[phone] Jul, Viral gastroenteritis A08.4 ; Fever, unspecified fever cause R50.9 and Acute nasopharyngitis J00 [place] [id number] [place] [address] 12003- [phone] 17 Jun, 2018 [place] [id number] [place] [address] 64431- [phone] May, Burning with urination R30.0 ; Second trimester Z34.92 ; 15 weeks gestation of Z3A.15 and UTI (urinary tract infection ) in in second trimester O23.[address] [phone]- [phone] 09 May, 2018 [facility] [place] [id number] [place] [address] [phone] -[phone] May, Dysuria R30.0 and Generalized abdominal pain R10.84 [place] [address] [phone]- [phone] 09 Apr, 2018 Normal in multigravida Z34.80 ; care, subsequent in first trimester Z34.81 ; 10 weeks gestation of Z3A.10 and Previous section complicating O34.219 [place] [id number] [place] [address] 88820- 5463 Mar, [facility] [place] [id number] [place] [address] [phone] Mar, Encounter for test, result positive Z32.01 [facility] [place] [id number] [place] [address] 32608 [phone] Jun, Encounter for immunization Z23 [facility] IN [address] [phone] Nov, Pharyngitis J02.9 and Bronchitis J40 IMMUNIZATIONS No Known Immunizations SOCIAL HISTORY Never Assessed REASON FOR VISIT OB appt PLAN OF CARE VITAL SIGNS MEDICATIONS Unknown [...]
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
[2018-11-22] MEDS ORDERED: ceFAZolin 2 GM IV Premixed 50 ML IV ONE (06:45)
[2018-11-22 06:53] LABS: BASOPHILS % (AUTO) 0 % (0-10); EOSINOPHILS # (AUTO) 0.1 10^3/uL (0.0-0.3); EOSINOPHILS % (AUTO) 1 % (0-10); HEMATOCRIT 33 % (35-52); LYMPHOCYTES % (AUTO) 42 % (12-44); MEAN CORPUSCULAR HEMOGLOBIN 25 PG (25-34); MEAN CORPUSCULAR HGB CONC 33 G/DL (32-36); MEAN CORPUSCULAR VOLUME 76 FL (80-99); MEAN PLATELET VOLUME 8.5 FL (7.4-10.4); MONOCYTES # (AUTO) 0.5 X 10^3 (0.0-1.0); MONOCYTES % (AUTO) 7 % (0-12); NEUTROPHILS # (AUTO) 3.5 X 10^3 (1.8-7.8); NEUTROPHILS % (AUTO) 50 % (42-75); PLATELET COUNT 430 10^3/uL (130-400); RED CELL DISTRIBUTION WIDTH 13.9 % (10.0-14.5); WHITE BLOOD COUNT 7.1 10^3/uL (4.3-11.0)
[2018-11-22] MEDS ORDERED: fentaNYL INJECTION 100 MCG/2 ML AMP ONE (06:56)
[2018-11-22] MEDS ORDERED: OXYTOCIN/NORMAL SALINE 1,000 ML IV ONE (06:56)
[2018-11-22] MEDS ORDERED: ONDANSETRON 4 MG/2 ML (SDV) Z0FRAN ONE (06:56)
[2018-11-22] MEDS ORDERED: LIDOCAINE PF 2% 5 ML (XYLOCAINE) VIAL ONE (06:56)
[2018-11-22] MEDS ORDERED: BUPIVACAINE SPINAL 0.75% (SENSORCAINE) 2 ML AMP ONE (06:56)
[2018-11-22] MEDS ORDERED: FAMOTIDINE 20MG/2ML IV (PEPCID) IV ONE (07:00)
[2018-11-22] MEDS ORDERED: CATHETER FLUSH 10 ML SYR IV PRN (07:00)
[2018-11-22] MEDS ORDERED: CITRIC ACID/SOB CIT (BICITRA) 30 ML UDC PO ONE (07:00)
[2018-11-22] MEDS ORDERED: METOCLOPRAMIDE INJ 10 MG/2 ML (REGLAN) IV ONE (07:00)
[2018-11-22] MEDS ORDERED: OXYTOCIN/NORMAL SALINE 500 ML IV SCH (07:06)
--- NOTE | 2018-11-22 07:09 | History & Physical-OB ---
OB - Chief Complaint & HPI Date/Time Date of Admission: Date of Admission: Nov 22, 2018 at 6:15 am Date seen by a Provider: Nov 22, 2018 Time Seen by a Provider: 07:05 Chief Complaint/History OB-Reason for Admission/Chief: Section Hx : 3 Hx Para: 2 Expected Date of Delivery: Nov 25, 2018 Gestational Age in Weeks: 3 Gestational Age in Days: 2 Indication for : desires repeat Admission Nurse Assessment Rev: Yes History of Labs O pos Antibody neg RI RPR NR HBsAg NR HIV NR GC neg GBS unknown Allergies and Home Medications Allergies Coded Allergies: No Known Drug Allergies (Unverified , 11/19/18) Patient Home Medication List Home Medication List Reviewed: Yes OB - History Hx of Present Care: Yes Ultrasounds: Normal mid trimester US Obstetrical Complications: None Medical Complications: None Obstetrical History Hx Termination: No Hx Multiple Gestation: No Hx Stillbirth: No Hx Complication: No Hx Induced Hypertens: No Hx Maternal Gestational Diabet: No Delivery History Hx Dystocia: No Hx Large For Gestational Age I: No Hx Small for Gestational Age I: No Hx Section: Yes Hx Vaginal Delivery Post C-Sec: No Hx Blood Disorders: No Adverse Rxn to Tranfusion: No Patient Past Medical History PMHx: denies SurgHx: x 2 Wrist cyst removal Social History/Family History 2nd Hand Smoke Exposure: No Immunizations Tetanus Booster (TDap): Unknown Date of Influenza Vaccine: Jul 27, 2018 OB - Admission Exam Physical Exam HEENT: NCAT Heart: Rhythm Normal Lungs: Clear Abdomen: Gravid Extremities: Normal Reflexes: Normal Heart Rate: 130's Accelerations: Accelerations Present Decelerations: No Decelerations Short Term Variability: Present Rn Document Improvement Variability: Average (6-25) Contractions on Admission: 6-10 Minutes Apart Intensity: Moderate Labs Laboratory Tests Test 11/22/18 06:28 Range/Units White Blood Count 7.1 4.3-11.0 10^3/uL Red Blood Count 4.41 4.35-5.85 10^6/uL Hemoglobin 11.0 L 11.5-16.0 G/DL Hematocrit 33 L 35-52 % Mean Corpuscular Volume 76 L 80-99 FL Mean Corpuscular Hemoglobin 25 25-34 PG Mean Corpuscular Hemoglobin Concent 33 32-36 G/DL Red Cell Distribution Width 13.9 10.0-14.5 % Platelet Count 430 H 130-400 10^3/uL Mean Platelet Volume 8.5 7.4-10.4 FL Neutrophils (%) (Auto) 50 42-75 % Lymphocytes (%) (Auto) 42 12-44 % Monocytes (%) (Auto) 7 0-12 % Eosinophils (%) (Auto) 1 0-10 % Basophils (%) (Auto) 0 0-10 % Neutrophils # (Auto) 3.5 1.8-7.8 X 10^3 Lymphocytes # (Auto) 3.0 1.0-4.0 X 10^3 Monocytes # (Auto) 0.5 0.0-1.0 X 10^3 Eosinophils # (Auto) 0.1 0.0-0.3 10^3/uL Basophils # (Auto) 0.0 0.0-0.1 10^3/uL OB - Assessment/Plan/Diagnosis Assessment Assessment: section Admission Dx 33 yo @ 39.4 weeks Previous x 2 Admission Status: Inpatient Order (span 2 midnights) Reason for Inpatient Admission: Repeat Plan Plan: Section STEWART GUILLERMO DO Nov 22, 2018 7:09 am
--- NOTE | 2018-11-22 07:10 | Discharge Inst-Women's Service ---
Discharge Inst-Women's Serv Depart Medication/Instructions New, Converted or Re-Newed RX: RX on Chart Final Diagnosis POD 2 RLTCS Consults/Follow Up Additional Follow Up: Yes Orders/Referrals Dr. Reyes in 7-[address] Raymond in 6 weeks Activity Activity: Activity as Tolerated Driving Instructions: No Driving for 1 Week NO SMOKING: NO SMOKING Nothing Inside Vagina: No Douching, No Nicholson, No Tampons Diet Discharge Diet: No Restrictions Symptoms to Report to : Bleeding Excessive, Pain Increased, Fever Over 101 Degrees F, Vaginal Bleeding Increase, Questions/Concerns For Any Problems or Questions: Contact Your Physician Skin/Wound Care Infection Signs and Symptoms: Increased Redness, Foul Odor of Wound, Increased Drainage, Skin Itchy or Has a Rash, Increased Swelling, Temperature Above 101 F Operative Area Clean and Dry: Keep Incision Clean/Dry Stitches/Deirdre/Dermabond: Dermabond, Care of Stitches Bathing Instructions: STEWART Milian DO Nov 22, 2018 7:10 am
[2018-11-22] MEDS ORDERED: ACHD5005 PO (07:11)
[2018-11-22] MEDS ORDERED: IBUP-844 PO (07:11)
[2018-11-22] MEDS ORDERED: DOCU100C37 PO (07:11)
[2018-11-22] MEDS ORDERED: HYDROmorphone 2 MG/ML VIAL (DILAUDID) IV PRN (07:15)
[2018-11-22] MEDS ORDERED: ONDANSETRON 4 MG/2 ML (SDV) Z0FRAN IVP PRN ×2 (07:15→08:30)
[2018-11-22] MEDS ORDERED: TETANUS,DIPTH,PERTUSS P/F (BOOSTRIX) 0.5 ML VIAL IM SCH (07:15)
[2018-11-22] MEDS ORDERED: MEASLES,MUMPS,RUBELLA 1 EA INJ SC SCH (07:15)
[2018-11-22 07:23] LABS: BILIRUBIN,URINE NEGATIVE (NEGATIVE); CLARITY,URINE CLEAR; COLOR,URINE AMBER; GLUCOSE, URINE (UA) NEGATIVE (NEGATIVE); KETONES,URINE NEGATIVE (NEGATIVE); LEUKOCYTE ESTERASE ,URINE 3+ (NEGATIVE); NITRITE,URINE NEGATIVE (NEGATIVE); PH,URINE 5 (5-9); PROTEIN,URINE 2+ (NEGATIVE); UROBILINOGEN,URINE NORMAL (NORMAL)
[2018-11-22] MEDS ORDERED: LACTATED RINGERS 1,000 ML IV PRN ×2 (07:24)
[2018-11-22 07:36] LABS: BACTERIA,URINE FEW /HPF; SQUAMOUS EPITHELIAL CELL,UR 25-50 /HPF
[2018-11-22] MEDS ORDERED: ROPIVACAINE 5MG/ML 30ML VIAL ONE (07:45)
[2018-11-22] MEDS ORDERED: PHENYLEPHRINE 100 MCG/ML 10 ML (ANESTHESIA) SYR ONE (07:55)
[2018-11-22] MEDS ORDERED: HYDROmorphone 2 MG/ML VIAL (DILAUDID) IV ONE (08:30)
--- NOTE | 2018-11-22 09:23 | NUR ---
Transferred to 306 following a repeat . Accompanied by this administrative underwriter, Arnold Toth RN, in crib, and family member. Instructions given on menu, pp packet of Hep B, hearing screen, car seat, and to call when first time up to void.
--- NOTE | 2018-11-22 09:29 | OPERATIVE REPORT ---
DATE OF SERVICE: PREOPERATIVE DIAGNOSES: 1. A 33-year-old G3, P2 at 39 weeks and 4 days gestation. 2. Previous section x 2. POSTOPERATIVE DIAGNOSES: 1. A 33-year-old G3, P2 at 39 weeks and 4 days gestation. 2. Previous section x 2. PROCEDURE: Repeat low transverse section. SURGEON: Fermin Reyes DO. BRAIN SURGEON: EDWARD Cotter. ANESTHESIA: Spinal. ESTIMATED BLOOD LOSS: 500 mL. URINE OUTPUT: 50 mL clear at the end of the procedure. FLUIDS: 2500 mL of lactated Ringer's solution. FINDINGS: A live male weighing 7 pounds 15 ounces, Apgars of 8 and 9. Grossly normal appearing uterus, bilateral fallopian tubes and ovaries. SPECIMENS SENT: Placenta. INDICATIONS FOR PROCEDURE: This 33-year-old female was a consultation to me from Dr. Raymond at [facility] for repeat . Her care was unremarkable with the exception of limited in nature. She had a late onset of care as well as did not always keep routine followup as recommended in her preoperative visit, I reviewed with the patient the procedure , which she was very familiar with it, she has had 2 previously. We reviewed the risks in detail as well as postoperative expectations in detail. After all of her questions were answered, consent was obtained. The patient was taken to the operating room. OPERATIVE REPORT IN DETAIL: Once in the operating room, spinal anesthesia was found to be adequate. She was placed in supine position with a leftward tilt, prepped and draped in a normal sterile fashion. Timeout was performed and anesthesia was tested. I then proceeded to making a Pfannenstiel skin incision through the previously existing scar using a knife and carried down to underlying fascia using Bovie cautery. The fascial incision extended laterally using Bovie cautery. Superior aspect of the fascial incision was then grasped with Carlota clamps, tented up and dissected off the underlying rectus muscle. The inferior aspect of the fascial incision was then grasped with Carlota clamps, tented up and dissected off the underlying rectus muscles. The rectus muscle was dissected down the midline using Ring scissors, which exposed the peritoneum, which I entered bluntly and extended using blunt traction. An Gee ring retractor was placed in the peritoneal incision, which offered excellent lateral side wall retraction. I then identified the uterine segment, which was found to be thinned out. I made a low transverse incision to the vesicouterine peritoneum and bluntly dissected the vesicouterine peritoneum off the lower uterine segment. The segment itself was very thin and myometrium was very thin as well. I can also see a shadowing of the membranes through some of the myometrium. I then incised the myometrium to allow access to the amniotic sac. I extended the uterine incision laterally and superiorly using bandage scissors. Amniotomy was performed using Allis clamp and clear fluid was noted. Infant was found in vertex presentation. With gentle fundal pressure, the 's head was delivered in the incision where the nares and oropharynx were then bulb suctioned. Anterior and posterior shoulder was delivered. was then brought to the operative field where the cord was looked at the cut and was handed off to awaiting nurses in attendance. Cord blood was collected. Three-vessel cord with intact placenta was delivered spontaneously thereafter. IV Pitocin was initiated to facilitate uterine contraction. Uterine fundus became firmer with bimanual massage. The uterus was then exteriorized and cleared of endometrial clots and debris. I then closed the uterine incision using 0 Vicryl suture in a running locked fashion. Second layer of imbricating 0 Monocryl was placed. Excellent hemostasis was noted after doing this. I then placed the uterus back in the pelvis and copiously irrigated the pelvis using normal saline. Once again, there was no active bleeding noted from any of my dissection planes. I then placed Interceed antiadhesive over my low transverse incision. I then proceeded closing the peritoneum using 3-0 Vicryl suture in a running fashion. The rectus muscle was reapproximated using 3-0 Vicryl suture in interrupted fashion. The fascia was reapproximated using 0 Vicryl suture in a running fashion. Subcutaneous tissue was reapproximated using a 3-0 plain and the skin was reapproximated using 4-0 Monocryl running subcuticular. Dermabond was applied to the incision and sterile dressing with adhesive white tape. The patient tolerated the procedure well and was taken to the recovery area in stable condition. Lap and sponge count was correct at the end of the procedure. The instrument counts were correct as well. Two grams of Ancef given preoperatively for infection prophylaxis. Job ID: [id number] DocumentID: [id number] Dictated Date: 11/22/2018 08:17:25 Transformation Architect Date: 11/22/2018 09:28:17 Dictated By: FERMIN REYES DO
[2018-11-22 10:30] VITALS: BP 114/71
[2018-11-22] MEDS: KETOROLAC 30 MG/ML VIAL IVP SCH ×2 (10:41→17:54)
[2018-11-22] MEDS: HYDROcodone/APAP 5 MG/325 MG (LORTAB) TAB PO PRN ×3 (12:39→23:59)
[2018-11-22] MEDS ORDERED: CATHETER FLUSH 10 ML SYR IV SCH (14:00)
[2018-11-22 15:25] VITALS: BP 120/66
[2018-11-22 20:00] VITALS: BP 114/67
[2018-11-22] MEDS ORDERED: diphenhydrAMINE 50 MG/ML INJ (BENADRYL) IV PRN (20:15)
[2018-11-22] MEDS ORDERED: NALOXONE 0.4 MG/ML 1 ML (NARCAN) VIAL IV PRN (20:15)
[2018-11-22] MEDS ORDERED: ONDANSETRON 4 MG/2 ML (SDV) Z0FRAN IV PRN (20:15)
[2018-11-22] MEDS: DOCUSATE SODIUM 100 MG (COLACE) CAP PO SCH (21:19)
[2018-11-23] MEDS: KETOROLAC 30 MG/ML VIAL IVP SCH
[2018-11-23 01:00] VITALS: BP 106/65
[2018-11-23] MEDS: HYDROcodone/APAP 5 MG/325 MG (LORTAB) TAB PO PRN ×4 (04:25→23:22)
[2018-11-23 04:36] LABS: BASOPHILS % (AUTO) 0 % (0-10); EOSINOPHILS # (AUTO) 0.1 10^3/uL (0.0-0.3); EOSINOPHILS % (AUTO) 1 % (0-10); HEMATOCRIT 31 % (35-52); HEMOGLOBIN 10.2 G/DL (11.5-16.0); LYMPHOCYTES # (AUTO) 2.9 X 10^3 (1.0-4.0); LYMPHOCYTES % (AUTO) 24 % (12-44); MEAN CORPUSCULAR HEMOGLOBIN 25 PG (25-34); MEAN CORPUSCULAR HGB CONC 33 G/DL (32-36); MEAN CORPUSCULAR VOLUME 76 FL (80-99); MEAN PLATELET VOLUME 8.7 FL (7.4-10.4); MONOCYTES # (AUTO) 0.7 X 10^3 (0.0-1.0); MONOCYTES % (AUTO) 5 % (0-12); NEUTROPHILS # (AUTO) 8.4 X 10^3 (1.8-7.8); NEUTROPHILS % (AUTO) 70 % (42-75); PLATELET COUNT 353 10^3/uL (130-400); RED CELL DISTRIBUTION WIDTH 14.2 % (10.0-14.5); WHITE BLOOD COUNT 12.1 10^3/uL (4.3-11.0)
[2018-11-23 06:00] VITALS: BP 121/82
[2018-11-23] MEDS: IBUPROFEN 600 MG (MOTRIN) TAB PO SCH ×4 (06:41→23:22)
--- NOTE | 2018-11-23 06:52 | NUR ---
Pt. is up walking around the room. States that she wants to shower. Towels and clean gown brought to room. Pt voices no other questions or concerns at this time.
--- NOTE | 2018-11-23 06:54 | Anesthesia-Regional Post-Op ---
Regional Patient Condition Mental Status: Alert, Oriented x3 Circulation: Same as Pre-Op Headache: Absent Sensation: Full Recovery Motor Block: Absent Post Op Complications Complications None Follow Up Care/Instructions Patient Instructions None needed. Anesthesia/Patient Condition Patient is doing well, no complaints, stable vital signs, no apparent adverse anesthesia problems. No complications reported per nursing. JACINTO NORWOOD CRNA Nov 23, 2018 06:54
--- NOTE | 2018-11-23 08:15 | NUR ---
Dr. Reyes on unit, to round on pt. No new orders rec'd
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
[2018-11-23 09:00] VITALS: BP 107/61
--- NOTE | 2018-11-23 10:45 | NUR ---
Pt reports rec'ing phone call that student insurance coverage ends tonight. Pt requests prescriptions at this time to fill prior to losing coverage. Prescriptions provided and explained for friend/family to go fill.
[2018-11-23] MEDS: DOCUSATE SODIUM 100 MG (COLACE) CAP PO SCH ×2 (11:59→21:23)
[2018-11-23 12:00] VITALS: BP 120/68
--- NOTE | 2018-11-23 13:46 | NUR ---
CM/SS spoke with the family about discharge planning. Provided Starla with contact information for [place] [employer] that she had asked for. Family will continue to participate with [employer] program.
[2018-11-23 17:54] VITALS: BP 112/68
--- NOTE | 2018-11-23 20:00 | NUR ---
Pt sitting up eating dinner. assessment completed. pt denies any needs at this time. will continue to monitor.
[2018-11-24] VITALS: BP 139/85
[2018-11-24 04:00] VITALS: BP 110/63
[2018-11-24] MEDS: IBUPROFEN 600 MG (MOTRIN) TAB PO SCH ×2 (05:43→12:07)
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
[2018-11-24] MEDS: DOCUSATE SODIUM 100 MG (COLACE) CAP PO SCH (08:35)
--- NOTE | 2018-11-24 08:40 | NUR ---
THIS RN TO BEDSIDE, PT RESTING. COLACE GIVEN PO; SEE EMAR FOR FURTHER. INITIAL SHIFT ASSESSMENT COMPLETED; SEE INTERVENTION FOR FURTHER. PT DENIES ANY PAIN BUT IS C/O SORE THROAT, NASAL DRAINAGE AND EAR PAIN. PT STATES THAT SHE FORGOT TO MENTION IT TO THE DR WHEN HE MADE ROUNDS. NO FURTHER NEEDS OR QUESTIONS VOICED. CALL LIGHT WITHIN REACH. PT LOOKING OVER MENU.
[2018-11-24] MEDS: HYDROcodone/APAP 5 MG/325 MG (LORTAB) TAB PO PRN (12:07)
--- NOTE | 2018-11-24 12:22 | NUR ---
DISCHARGE PAPERS PROVIDED AND REVIEWED WITH PT, PT VERBALIZES UNDERSTANDING AND DENIES ANY NEEDS OR QUESTIONS AT THIS TIME. PAPER SIGNED. DISCHARGE INSTRUCTIONS AND FOLLOW UP APPOINTMENT CARD ALL PLACED INTO RED DISCHARGE FOLDER.
--- NOTE | 2018-11-24 14:40 | NUR ---
PT DISCHARGED FROM -306 TO PERSONAL AUT[facility] VIA W/C IN STABLE CONDITION ACC BY VISITOR, NATALY AND Nikos CHIU RN.
== END 2018-11-24 14:40 | disposition home or self-care (01) | DRG 787 ==
LOC: LDRP 06:15 → WS 07:50 → LDRP 12:45 → WS 12:45
PROVIDERS: ADMIT Obstetrics & Gynecology; ATTEND Obstetrics & Gynecology
PROC: 10D00Z1 Extraction of Products of Conception, Low, Open Approach (ICD-10-PCS; principal; 2018-11-22 07:19)
DX: O34.211 Maternal care for low transverse scar from previous cesarean delivery (principal); O90.81 Anemia of the puerperium; D62 Acute posthemorrhagic anemia; Z3A.39 39 weeks gestation of pregnancy; Z37.0 Single live birth
CPT/HCPCS: 36415; 81000; 85025; 86850; 86900; 86901; 87077; 87088; 88307; 90715; 94664

== ENCOUNTER → 2018-12-16 | Emergency (ER) | payer OTHER ==
[~2018-12-16] VITALS: Ht 160 cm; Wt 65.8 kg
[~2018-12-16] MED LIST changes: +ACHD5005 PO; -CITRIC ACID/SOB CIT (BICITRA) 30 ML UDC ONE; +DOCU100C37 PO; -FAMOTIDINE 20MG/2ML IV (PEPCID) ONE; +IBUP-844 PO; +IOHEXOL 350 MG/ML 100 ML (OMNIPAQUE 350) VIAL IV ONE; +KETOROLAC 30 MG/ML VIAL IVP ONE; -LACTATED RINGERS 1,000 ML IV ONE; -METOCLOPRAMIDE INJ 10 MG/2 ML (REGLAN) ONE; +NS 100 ML (IVPB) BAG IV ONE; +RECEIVED CONTRAST (Hold Metformin) IV SCH; -ceFAZolin 2 GM IV Premixed 50 ML ONE
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
[2018-12-16 14:27] LABS: HEMOGLOBIN 12.3 G/DL (11.5-16.0); MEAN PLATELET VOLUME 8.9 FL (7.4-10.4); RED CELL DISTRIBUTION WIDTH 15.1 % (10.0-14.5)
[2018-12-16 14:37] LABS: PROTHROMBIN TIME PATIENT 12.9 SEC (12.2-14.7)
--- NOTE | 2018-12-16 14:38 | NUR ---
[facility] DEPARTMENT HERE TALKING TO PT AT THIS TIME.
[2018-12-16 14:40] LABS: ALANINE AMINOTRANSFERASE 55 U/L (0-55); ALKALINE PHOSPHATASE 126 U/L (40-136); BILIRUBIN,DIRECT 0.1 MG/DL (0.0-0.3); BILIRUBIN,INDIRECT 0.2 MG/DL; BILIRUBIN,TOTAL 0.3 MG/DL (0.1-1.0); BUN/CREATININE RATIO 13; CARBON DIOXIDE 24 MMOL/L (21-32); CHLORIDE 104 MMOL/L (98-107); CREATININE SERUM 0.71 MG/DL (0.60-1.30); GFR ESTIMATED > 60; GLUCOSE 83 MG/DL (70-105); MAGNESIUM 2.3 MG/DL (1.8-2.4); POTASSIUM 3.8 MMOL/L (3.6-5.0); SODIUM 138 MMOL/L (135-145); TOTAL PROTEIN 6.8 GM/DL (6.4-8.2)
--- NOTE | 2018-12-16 15:13 | NUR ---
PT BACK FROM CT AT THIS TIME.
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
[2018-12-16 16:03] LABS: BILIRUBIN,URINE NEGATIVE (NEGATIVE); CLARITY,URINE CLEAR; COLOR,URINE YELLOW; GLUCOSE, URINE (UA) NEGATIVE (NEGATIVE); KETONES,URINE NEGATIVE (NEGATIVE); LEUKOCYTE ESTERASE ,URINE NEGATIVE (NEGATIVE); NITRITE,URINE NEGATIVE (NEGATIVE); PH,URINE 7 (5-9); PROTEIN,URINE NEGATIVE (NEGATIVE); UROBILINOGEN,URINE NORMAL (NORMAL)
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
[2018-12-16 16:10] LABS: BACTERIA,URINE NEGATIVE /HPF; SQUAMOUS EPITHELIAL CELL,UR 0-2 /HPF
[2018-12-16 16:19] LABS: AMPHETAMINE SCREEN, URINE NEGATIVE (NEGATIVE); BARBITURATE SCREEN URINE NEGATIVE (NEGATIVE); BENZODIAZEPINES SCREEN URINE NEGATIVE (NEGATIVE); CANNABINOID SCREEN, URINE NEGATIVE (NEGATIVE); COCAINE SCREEN URINE NEGATIVE (NEGATIVE); METHADONE STAT NEGATIVE (NEGATIVE); METHAMPHETAMINE SCREEN URINE S NEGATIVE (NEGATIVE); OPIATE SCREEN URINE NEGATIVE (NEGATIVE); OXYCODONE STAT NEGATIVE (NEGATIVE); PROPOXYPHENE STAT NEGATIVE (NEGATIVE); TRICYCLIC ANTIDEPRESSANTS SCRE NEGATIVE (NEGATIVE)
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
[2018-12-16 16:45] VITALS: BP 123/87
== END | disposition home or self-care (01) ==
LOC: EDUNIT# 13:58 → ER 13:59
DX: O9A.23 Injury, poisoning and certain other consequences of external causes complicating the puerperium (principal); R51 Headache; M25.521 Pain in right elbow; R10.30 Lower abdominal pain, unspecified; O90.89 Other complications of the puerperium, not elsewhere classified; R93.5 Abnormal findings on diagnostic imaging of other abdominal regions, including retroperitoneum; O99.63 Diseases of the digestive system complicating the puerperium; K21.9 Gastro-esophageal reflux disease without esophagitis; O99.345 Other mental disorders complicating the puerperium; F41.9 Anxiety disorder, unspecified; Z82.49 Family history of ischemic heart disease and other diseases of the circulatory system; Z87.891 Personal history of nicotine dependence; Z98.890 Other specified postprocedural states; V49.40XA Driver injured in collision with unspecified motor vehicles in traffic accident, initial encounter
CPT/HCPCS: 36415; 70450; 70486; 71260; 72125; 73080; 74177; 80048; 80076; 80306; 80320; 81000; 83735; 84703; 85027; 85610; 85730; 93041

== ENCOUNTER 2018-12-30 04:25 | Emergency (ER) | payer OTHER ==
[~2018-12-30] VITALS: Ht 152.4 cm; Wt 65.8 kg
[~2018-12-30 04:25] MED LIST changes: -IOHEXOL 350 MG/ML 100 ML (OMNIPAQUE 350) VIAL IV ONE; -KETOROLAC 30 MG/ML VIAL IVP ONE; -NS 100 ML (IVPB) BAG IV ONE; -RECEIVED CONTRAST (Hold Metformin) IV SCH
[2018-12-30 05:39] VITALS: BP 116/72
[2018-12-30 05:54] LABS: BASOPHILS % (AUTO) 1 % (0-10); EOSINOPHILS # (AUTO) 0.2 10^3/uL (0.0-0.3); EOSINOPHILS % (AUTO) 2 % (0-10); HEMATOCRIT 37 % (35-52); LYMPHOCYTES # (AUTO) 2.5 X 10^3 (1.0-4.0); LYMPHOCYTES % (AUTO) 40 % (12-44); MEAN CORPUSCULAR HEMOGLOBIN 25 PG (25-34); MEAN CORPUSCULAR HGB CONC 33 G/DL (32-36); MEAN CORPUSCULAR VOLUME 77 FL (80-99); MEAN PLATELET VOLUME 8.8 FL (7.4-10.4); MONOCYTES # (AUTO) 0.5 X 10^3 (0.0-1.0); MONOCYTES % (AUTO) 9 % (0-12); NEUTROPHILS # (AUTO) 3.1 X 10^3 (1.8-7.8); NEUTROPHILS % (AUTO) 49 % (42-75); PLATELET COUNT 348 10^3/uL (130-400); RED CELL DISTRIBUTION WIDTH 15.8 % (10.0-14.5); WHITE BLOOD COUNT 6.4 10^3/uL (4.3-11.0)
[2018-12-30 06:13] LABS: ALANINE AMINOTRANSFERASE 76 U/L (0-55); ALKALINE PHOSPHATASE 103 U/L (40-136); BILIRUBIN,TOTAL 0.3 MG/DL (0.1-1.0); BUN/CREATININE RATIO 10; CARBON DIOXIDE 23 MMOL/L (21-32); CHLORIDE 105 MMOL/L (98-107); GFR ESTIMATED > 60; GLUCOSE 92 MG/DL (70-105); POTASSIUM 3.5 MMOL/L (3.6-5.0); SODIUM 139 MMOL/L (135-145); TOTAL PROTEIN 6.8 GM/DL (6.4-8.2)
--- NOTE | 2018-12-30 06:21 | ED General ---
General Chief Complaint: Psych/Social Disorder Stated Complaint: ANXIETY Nursing Triage Note: Pt was brought in by EMS for anxiety attack. Pt was calm and cooperative at arrival. She was alert and oritented. Pt just had a 5 weeks ago. EMS thought part of this could be from depression. Pt stated its been going on for 2 weeks, but tonight at 1700 it got worse. Eye sight faded, anxiety attack and has occurred a couple times this week. Pt has 3 own kids to watch plus a friends. The infants dad is in [place], boyfriend is at club in [place], friend is in [place] and her child has an ear infection. Nursing Sepsis Screen: No Definite Risk Source of Information: Patient Exam Limitations: No Limitations History of Present Illness Date Seen by Provider: Dec 30, 2018 Time Seen by Provider: 05:15 Initial Comments Here with report of anxiety attack and numbness around her mouth, numbness of her hands and her feet and overall not feeling well. She apparently was overwhelmed today due to having to take care of her own 5-week-old as well as her other 2 children and another child as well. The other child had an ear infection and was quite cranky. All the kids were crying and she is trying to take care of all of and this overwhelmed her. Apparently the father of her 5- week-old is in [place] and her boyfriend is in [facility] and with some other people. The child with ear infection is a friend of hers daughter and she ended up having to care for this child is well. She states too much was going on and she is started to feel weak and like the room was closing in on her. She got lightheaded and had the paresthesias. She sat down and felt a little better and then called EMS. EMS arrived and sat with her until other friends were able to come watch the kids. Currently she is feeling better but does admit to depression over the last week or 2. She has not had depression previously. Does report palpitations during the event but otherwise denies other concerns. Timing/Duration: 1-3 Hours Severity: Moderate Modifying Factors: improves with Rest Associated Systoms: No Fever/Chills, No Nausea/Vomiting; Shortness of Air, Weakness Allergies and Home Medications Allergies Coded Allergies: No Known Drug Allergies (Unverified , 11/19/18) Home Medications Docusate Sodium 100 Mg Capsule, 100 MG PO BID PRN for CONSTIPATION-1ST LINE Prescribed by: STEWART GUILLERMO on 11/22/18 07 Hydrocodone Bit/Acetaminophen 1 Tab Tab, 1 TAB PO Q4H PRN for PAIN-MODERATE Prescribed by: STEWART GUILLERMO on 11/22/18 0711 Ibuprofen 600 Mg Tablet, 600 MG PO Q6H Prescribed by: STEWART GUILLERMO on 11/22/18 07 Patient Home Medication List Home Medication List Reviewed: Yes Review of Systems Review of Systems Constitutional: see HPI; No chills, No fever EENTM: see HPI Respiratory: short of breath; No wheezing Cardiovascular: palpitations; No syncope Gastrointestinal: no symptoms reported Musculoskeletal: see HPI Psychiatric/Neurological: Anxiety; Denies Headache; Paresthesia Past Devhxka-Lyanet-Dtmkya Hx Past Med/Social Hx: Reviewed Nursing Past Med/Soc Hx Patient Social History Alcohol Use: Denies Use Recreational Drug Use: No Type Used: Cigarettes Former Smoker, Quit: Oct 23, 2015 2nd Hand Smoke Exposure: No Recent Foreign Travel: No Contact w/Someone Who Travel: No Recent Infectious Disease Expo: No Recent Hopitalizations: Yes ([facility] AUG 2018) Physical Abuse: No Sexual Abuse: No Mistreated: No Fear: No Immunizations Up To Date Tetanus Booster (TDap): Unknown PED Vaccines UTD: Yes Date of Influenza Vaccine: Jul 27, 2018 Seasonal Allergies Seasonal Allergies: No Past Medical History Surgeries: Yes ( X 2; GANGLION CYST RIGHT WRIST X 2) Section, Orthopedic Respiratory: No Cardiac: No Neurological: No Reproductive Disorders: No Female Reproductive Disorders: Denies Genitourinary: No Gastrointestinal: Yes Gastroesophageal Reflux Musculoskeletal: No Endocrine: No HEENT: Yes (GLASSES) Loss of Vision: Bilateral Hearing Impairment: Denies Cancer: No Psychosocial: Yes Anxiety Integumentary: No Blood Disorders: No Adverse Reaction/Blood Tranf: No Family Medical History Reviewed Nursing Family Hx Cardiovascular disease Diabetes mellitus 19 MOTHER Hypertension 19 FATHER No Family History of: AIDS Abdominal aortic aneurysm [place]'s disease Alcoholism Alzheimer's disease Aphasia Arthritis Asthma Cancer of mouth Cataracts Colon cancer Completed stroke Congenital disease Congenital heart disease Coronary thrombosis Cystic fibrosis Deafness or hearing loss Dementia Drug abuse Dysphasia Fibrocystic disease of breast Gastroenteritis Glaucoma Headache disorder Hypercholesterolemia Infertility Kidney disease Myocardial infarction Neoplasm Not obtainable due to adoption Osteoporosis Parkinson's disease Prostate cancer Psychosocial problem Respiratory disorder Seizure disorder Severe allergy Thyroid disease Tuberculosis Visual disorder Diabetes, Hypertension Physical Exam Vital Signs Vital Signs - First Documented 12/30/18 04:59 Temp 97.5 Pulse 80 Resp 20 B/P (MAP) 120/90 (100) Pulse Ox 96 O2 Delivery Room Air Capillary Refill : Less Than 3 Seconds Height, Weight, BMI Height: 5'0" Weight: 145lbs. 0oz. 65.540265pz; 29.1 BMI Method:Stated General Appearance: No Apparent Distress, WD/WN HEENT: PERRL/EOMI, Pharynx Normal Neck: Non Tender, Supple Respiratory: Lungs Clear, Normal Breath Sounds Cardiovascular: Regular Rate, Rhythm, No Murmur Gastrointestinal: Non Tender, Soft Back: Normal Inspection, No CVA Tenderness, No Vertebral Tenderness Neurologic/Psychiatric: Alert, Oriented x3 Skin: Normal Color, Warm/Dry Progress/Results/Core Measures Suspected Sepsis Recent Fever Within 48 Hours: No Infection Criteria Present: None New/Unexplained Altered Menta: No Sepsis Screen: No Definite Risk SIRS Temperature:97.5 Pulse: 80 Respiratory Rate: 20 Laboratory Tests 12/30/18 05:45: White Blood Count 6.4 Blood Pressure 120 /90 Mean: 100 Laboratory Tests 12/30/18 05:45: Creatinine 0.70, Platelet Count 348, Total Bilirubin 0.3 Results/Orders Lab Results Laboratory Tests Test 12/30/18 05:45 Range/Units White Blood Count 6.4 4.3-11.0 10^3/uL Red Blood Count 4.78 4.35-5.85 10^6/uL Hemoglobin 12.0 11.5-16.0 G/DL Hematocrit 37 35-52 % Mean Corpuscular Volume 77 L 80-99 FL Mean Corpuscular Hemoglobin 25 25-34 PG Mean Corpuscular Hemoglobin Concent 33 32-36 G/DL Red Cell Distribution Width 15.8 H 10.0-14.5 % Platelet Count 348 130-400 10^3/uL Mean Platelet Volume 8.8 7.4-10.4 FL Neutrophils (%) (Auto) 49 42-75 % Lymphocytes (%) (Auto) 40 12-44 % Monocytes (%) (Auto) 9 0-12 % Eosinophils (%) (Auto) 2 0-10 % Basophils (%) (Auto) 1 0-10 % Neutrophils # (Auto) 3.1 1.8-7.8 X 10^3 Lymphocytes # (Auto) 2.5 1.0-4.0 X 10^3 Monocytes # (Auto) 0.5 0.0-1.0 X 10^3 Eosinophils # (Auto) 0.2 0.0-0.3 10^3/uL Basophils # (Auto) 0.0 0.0-0.1 10^3/uL Sodium Level 139 135-145 MMOL/L Potassium Level 3.5 L 3.6-5.0 MMOL/L Chloride Level 105 98-107 MMOL/L Carbon Dioxide Level 23 21-32 MMOL/L Anion Gap 11 5-14 MMOL/L Blood Urea Nitrogen 7 7-18 MG/DL Creatinine 0.70 0.60-1.30 MG/DL Estimat Glomerular Filtration Rate > 60 BUN/Creatinine Ratio 10 Glucose Level 92 70-105 MG/DL Calcium Level 9.0 8.5-10.1 MG/DL Corrected Calcium 9.0 8.5-10.1 MG/DL Total Bilirubin 0.3 0.1-1.0 MG/DL Aspartate Amino Transf (AST/SGOT) 44 H 5-34 U/L Alanine Aminotransferase (ALT/SGPT) 76 H 0-55 U/L Alkaline Phosphatase 103 40-136 U/L Total Protein 6.8 6.4-8.2 GM/DL Albumin 4.0 3.2-4.5 GM/DL My Orders Orders - VICKIE WILLIS MD Ekg Tracing (12/30/18 05:25) Cbc With Automated Diff (12/30/18 05:25) Comprehensive Metabolic Panel (12/30/18 05:25) Vital Signs/I&O 12/30/18 04:59 Temp 97.5 Pulse 80 Resp 20 B/P (MAP) 120/90 (100) Pulse Ox 96 O2 Delivery Room Air Capillary Refill : Less Than 3 Seconds Blood Pressure Mean: 100 Progress Note : Progress Note Seen and evaluated. Labs and EKG ordered. Monitor patient. 0555: I did discuss case with Dr. Concepcion. Patient needs to call her primary care doctor in the morning and they can get appointment for her for concerns of depression. No concerns of suicidality but does have some sadness and anxiety. Pending labs. 0620: Labs reviewed and showed no acute findings. EKG is negative. Discharged home with return precautions. Patient verbalize understanding instructions and agreement with plan. Copy of chart to Dr. Quinn. ECG Initial ECG Impression Date: Dec 30, 2018 Initial ECG Impression Time: 05:38 Initial ECG Rate: 69 Initial ECG Rhythm: Normal Sinus Comment Sinus rhythm with normal axis. No evidence of ST elevation [place]. Similar to previous of 06/06/18. Interpreted by me. Departure Impression Primary Impression: Anxiety Additional Impression: Depression Qualified Codes: O99.345 - Other mental disorders complicating the puerperium ; F53.0 - depression Disposition: 01 HOME, SELF-CARE Condition: Improved Departure-Patient Inst. Decision time for Depature: 06:21 Referrals: LASHAUN QUINN MD (PCP/Family) Primary Care Physician Patient Instructions: Anxiety, Adult (DC), Depression, Adult (DC) Add. Discharge Instructions: All discharge instructions reviewed with patient and/or family. Voiced understanding. Call Dr. Quinn's office tomorrow morning for appointment this week for recheck and further evaluation especially regarding your depression and anxiety. Return for worse pain, fever, vomiting, weakness, breathing problems or other concerns as needed. Drink plenty of fluids and get plenty of rest Copy Copies To 1: LASHAUN QUINN MD, TIMOTHY D MD Dec 30, 2018 06:21
== END 2018-12-30 05:39 | disposition home or self-care (01) ==
LOC: EDUNIT# 04:25 → ER 04:26
DX: F41.9 Anxiety disorder, unspecified (principal); F32.9 Major depressive disorder, single episode, unspecified; K21.9 Gastro-esophageal reflux disease without esophagitis; Z87.891 Personal history of nicotine dependence; Z98.890 Other specified postprocedural states; Z82.49 Family history of ischemic heart disease and other diseases of the circulatory system
CPT/HCPCS: 36415; 80053; 85025; 93005

== ENCOUNTER 2019-10-07 17:35 | Outpatient (CLI) | payer OTHER ==
[~2019-10-07] VITALS: Ht 152.4 cm; Wt 74.0 kg
[~2019-10-07 17:35] MED LIST changes: +LURA60TA2 PO
[2019-10-07 18:15] VITALS: BP 108/66
[2019-10-07] MEDS ORDERED: PREN1TAB19 PO (18:35)
--- NOTE | 2019-10-08 09:00 | Physician Query-Final Dx ---
Clinic Account Progress/Dx Physician Query: Please give diagnosis Please give # weeks gestation Date of Service Oct 07, 2019 at 17:35 MAG KEMP Oct 08, 2019 09:00 POS
== END 2019-10-07 18:49 | disposition home or self-care (01) ==
LOC: LDRP 17:35 → WSo 17:35
PROVIDERS: ATTEND Family Medicine
DX: O99.89 Other specified diseases and conditions complicating pregnancy, childbirth and the puerperium (principal); R10.9 Unspecified abdominal pain
CPT/HCPCS: 99213

== ENCOUNTER 2019-10-11 19:03 | Outpatient (CLI) | payer OTHER ==
[~2019-10-11] VITALS: Ht 60 cm; Wt 74.3 kg
--- NOTE | 2019-10-11 19:03 | NUR ---
CECILIA ESCOBAR presented to unit via ambulatory from home, with c/o CONTRACTIONS. CECILIA ESCOBAR weighed, gowned, voided, and to bed. EFHM and TOCO applied, VS taken. CECILAI ESCOBAR oriented to bed controls, call light, TV, heat, and A/C controls.
[2019-10-11 19:12] VITALS: BP 109/71
[2019-10-11 19:15] VITALS: BP 109/71
--- NOTE | 2019-10-11 19:15 | NUR ---
Pt states she is having contractions that come and go every 3 minutes. denies leaking or bleeding. rates pain 9 with ctx, and 0 at rest. Pt states that she cannot eat anything but ice chips because of her nausea. Also states that she has "heat" in her back. will monitor.
--- NOTE | 2019-10-11 19:55 | NUR ---
Called dr. joseph. discussed pt history, pt c/o, exam, urine, vs, strip, and decel. dr requesting to monitor pt for 30 minutes longer and then call again for orders. will monitor.
--- NOTE | 2019-10-11 20:39 | NUR ---
Called Dr joseph with pt update. new orders to dc pt and call order for keflex in to pharmacy.
[2019-10-11] MEDS ORDERED: CEPH-507 PO (20:50)
--- NOTE | 2019-10-11 21:11 | NUR ---
Pt ambulated off unit. no s/s distress noted.
--- NOTE | 2019-10-14 10:36 | Physician Query-Final Dx ---
Clinic Account Progress/Dx Physician Query: Please give diagnosis Please include # weeks gestation Date of Service Oct 11, 2019 at 19:03 MAG KEMP Oct 14, 2019 10:36
== END 2019-10-11 21:11 | disposition home or self-care (01) ==
LOC: LDRP 19:03 → WSo 19:03
PROVIDERS: ATTEND Family Medicine
DX: Z34.93 Encounter for supervision of normal pregnancy, unspecified, third trimester (principal); Z3A.36 36 weeks gestation of pregnancy
CPT/HCPCS: 99214

== ENCOUNTER 2019-10-25 05:32 | Outpatient (CLI) | payer OTHER ==
[~2019-10-25] VITALS: Ht 152.4 cm; Wt 75.9 kg
[~2019-10-25 05:32] MED LIST changes: +CEPH-507 PO
== END 2019-10-25 12:03 | disposition home or self-care (01) ==
LOC: PREOP 05:32
PROVIDERS: ATTEND Obstetrics & Gynecology
DX: Z01.818 Encounter for other preprocedural examination (principal)

== ENCOUNTER 2019-12-20 14:36 | Emergency (ER) | payer SELFPAY ==
[~2019-12-20] VITALS: Ht 157 cm; Wt 69.5 kg
[~2019-12-20 14:36] MED LIST changes: +DOCU-143 PO; +HYDR-4226 PO; +IBUP-1773 PO; +OMEP40CA27 PO; -OMEP40CA36 PO; -TRAM50TA2 PO; +TRM50T PO
--- NOTE | 2019-12-20 15:38 | ED GI ---
General Chief Complaint: Abdominal/GI Problems Stated Complaint: C-SEC WOUND INFECTION;BLEEDING Nursing Triage Note: had c section on Nov 01 2019, states she was setting in her chair at work today when she felt something moist on her abdomen, states she looked at incision site and noted bleeding Sepsis Screen: No Definite Risk History of Present Illness Date Seen by Provider: Dec 20, 2019 Time Seen by Provider: 15:00 Initial Comments 34-year-old female presents with what she feels like he has drainage from her umbilicus. Patient reports that on November 01 she had a . That today she was seen in her chair at work when she felt some more shot abdomen. That she had motion around her site pain in her umbilicus. She has some mild bloody discharge and a foul smell. Patient is adamant that it is from her umbilicus and not sure site. Patient denies any fever, chills, nausea or vomiting. Patient reports she called her OB who sent her to the ER for further evaluation Allergies and Home Medications Allergies Coded Allergies: No Known Drug Allergies (Unverified , 11/19/18) Home Medications Cephalexin 500 Mg Capsule, 500 MG PO BID Prescribed by: DEBBIE HERNANDEZ on 12/20/19 1721 Docusate Sodium 100 Mg Capsule, 100 MG PO BID PRN for CONSTIPATION-1ST LINE Prescribed by: STEWART GUILLERMO on 11/01/19 0910 Hydrocodone/Acetaminophen 1 Each Tablet, 1-2 TAB PO Q6H Prescribed by: STEWART GUILLERMO on 11/01/19 0910 Ibuprofen 600 Mg Tablet, 600 MG PO Q6H Prescribed by: STEWART GUILLERMO on 11/01/19 0910 Vit/Iron Fumarate/FA 1 Each Tablet, 1 EACH PO DAILY, (Reported) Patient Home Medication List Home Medication List Reviewed: Yes Review of Systems Review of Systems Constitutional: No chills, No fever EENTM: No Symptoms Reported Respiratory: No Symptoms Reported Cardiovascular: No Symptoms Reported Gastrointestinal: See HPI Genitourinary: No Symptoms Reported Musculoskeletal: no symptoms reported Skin: no symptoms reported Past Khgaaus-Ujhczn-Ueuuka Hx Past Med/Social Hx: Reviewed Nursing Past Med/Soc Hx Patient Social History Alcohol Use: Denies Use Recreational Drug Use: No Type Used: Cigarettes Former Smoker, Quit: Oct 23, 2015 2nd Hand Smoke Exposure: No Recent Foreign Travel: No Contact w/Someone Who Travel: No Recent Infectious Disease Expo: No Recent Hopitalizations: No Immunizations Up To Date Tetanus Booster (TDap): Unknown PED Vaccines UTD: Yes Date of Influenza Vaccine: Aug 01, 2019 Seasonal Allergies Seasonal Allergies: No Past Medical History Surgeries: Yes ( X 3; GANGLION CYST RIGHT WRIST X 2) Section, Orthopedic Respiratory: No Currently Using CPAP: No Currently Using BIPAP: No Cardiac: No Neurological: No Reproductive Disorders: No Female Reproductive Disorders: Denies Genitourinary: No Gastrointestinal: Yes Gastroesophageal Reflux Musculoskeletal: No Endocrine: No HEENT: Yes (GLASSES) Loss of Vision: Bilateral Hearing Impairment: Denies Cancer: No Psychosocial: Yes Anxiety Integumentary: No Blood Disorders: No Adverse Reaction/Blood Tranf: No Family Medical History Cardiovascular disease Diabetes mellitus 19 MOTHER Hypertension 19 FATHER No Family History of: AIDS Abdominal aortic aneurysm [place]'s disease Alcoholism Alzheimer's disease Aphasia Arthritis Asthma Cancer of mouth Cataracts Colon cancer Completed stroke Congenital disease Congenital heart disease Coronary thrombosis Cystic fibrosis Deafness or hearing loss Dementia Drug abuse Dysphasia Fibrocystic disease of breast Gastroenteritis Glaucoma Headache disorder Hypercholesterolemia Infertility Kidney disease Myocardial infarction Neoplasm Not obtainable due to adoption Osteoporosis Parkinson's disease Prostate cancer Psychosocial problem Respiratory disorder Seizure disorder Severe allergy Thyroid disease Tuberculosis Visual disorder Diabetes, Hypertension Physical Exam Vital Signs Vital Signs - First Documented 12/20/19 14:41 Temp 36.7 Pulse 96 B/P (MAP) 123/82 (96) Capillary Refill : Less Than 3 Seconds Height/Weight/BMI Height: 5'0" Weight: 145lbs. 0oz. 65.637903lw; 28.00 BMI Method:Stated General Appearance: WD/WN Respiratory: chest non-tender, lungs clear, normal breath sounds Cardiovascular: normal peripheral pulses, regular rate, rhythm Gastrointestinal: other (patient incision has some purulent foul- smelling drainage. No abnormality noted at the umbilicus.) Extremities: normal range of motion, non-tender Back: normal inspection, no CVA tenderness Focused Exam Lactate Level 12/20/19 15:38: Lactic Acid Level 1.00 Lactic Acid Level Laboratory Tests Test 12/20/19 15:38 Lactic Acid Level 1.00 MMOL/L (0.50-2.00) Progress/Results/Core Measures Results/Orders Lab Results Laboratory Tests Test 12/20/19 15:38 Range/Units White Blood Count 7.0 4.3-11.0 10^3/uL Red Blood Count 5.07 4.35-5.85 10^6/uL Hemoglobin 12.2 11.5-16.0 G/DL Hematocrit 37 35-52 % Mean Corpuscular Volume 73 L 80-99 FL Mean Corpuscular Hemoglobin 24 L 25-34 PG Mean Corpuscular Hemoglobin Concent 33 32-36 G/DL Red Cell Distribution Width 20.1 H 10.0-14.5 % Platelet Count 471 H 130-400 10^3/uL Mean Platelet Volume 8.4 7.4-10.4 FL Neutrophils (%) (Auto) 49 42-75 % Lymphocytes (%) (Auto) 42 12-44 % Monocytes (%) (Auto) 7 0-12 % Eosinophils (%) (Auto) 2 0-10 % Basophils (%) (Auto) 1 0-10 % Neutrophils # (Auto) 3.4 1.8-7.8 X 10^3 Lymphocytes # (Auto) 2.9 1.0-4.0 X 10^3 Monocytes # (Auto) 0.5 0.0-1.0 X 10^3 Eosinophils # (Auto) 0.1 0.0-0.3 10^3/uL Basophils # (Auto) 0.0 0.0-0.1 10^3/uL Sodium Level 139 135-145 MMOL/L Potassium Level 3.3 L 3.6-5.0 MMOL/L Chloride Level 105 98-107 MMOL/L Carbon Dioxide Level 23 21-32 MMOL/L Anion Gap 11 5-14 MMOL/L Blood Urea Nitrogen 6 L 7-18 MG/DL Creatinine 0.77 0.60-1.30 MG/DL Estimat Glomerular Filtration Rate > 60 BUN/Creatinine Ratio 8 Glucose Level 118 H 70-105 MG/DL Lactic Acid Level 1.00 0.50-2.00 MMOL/L Calcium Level 9.0 8.5-10.1 MG/DL Corrected Calcium 8.8 8.5-10.1 MG/DL Total Bilirubin 0.3 0.1-1.0 MG/DL Aspartate Amino Transf (AST/SGOT) 29 5-34 U/L Alanine Aminotransferase (ALT/SGPT) 52 0-55 U/L Alkaline Phosphatase 98 40-136 U/L Total Protein 7.2 6.4-8.2 GM/DL Albumin 4.2 3.2-4.5 GM/DL My Orders Orders - DEBBIE HERNANDEZ DO Cbc With Automated Diff (12/20/19 15:10) Comprehensive Metabolic Panel (12/20/19 15:10) Lactic Acid Analyzer (12/20/19 15:10) Ed Iv/Invasive Line Start (12/20/19 15:10) Ct Abdomen/Pelvis W (12/20/19 15:33) Iohexol Injection (Omnipaque 350 Mg/Ml 1 (12/20/19 16:30) Received Contrast (Hold Metformin- Contr (12/20/19 16:30) Sodium Chloride Flush (Catheter Flush Sy (12/20/19 16:30) Ns (Ivpb) (Sodium Chloride 0.9% Ivpb Bag (12/20/19 16:30) Medications Given in ED Current Medications Medications Dose Ordered Sig/Genevieve Route Start Time Stop Time Status Last Admin Dose Admin Iohexol 100 ml ONCE ONCE IV 12/20/19 16:30 12/20/19 16:31 DC 12/20/19 16:52 88 ML Sodium Chloride 10 ml NEEDED PRN IV 12/20/19 16:30 12/20/19 16:52 10 ML Sodium Chloride 100 ml ONCE ONCE IV 12/20/19 16:30 12/20/19 16:31 DC 12/20/19 16:52 80 ML Vital Signs/I&O 12/20/19 14:41 Temp 36.7 Pulse 96 B/P (MAP) 123/82 (96) Blood Pressure Mean: 96 Progress Progress Note : Time: 15:37 Progress Note Patient is adamant that is from her umbilicus and not the site. Due to this she requests further evaluation of the versus my physical exam. Based on her request I will obtain a CT abdomen and pelvis with contrast for further evaluation. [address] and labs are consistent with a superficial surgical site wound infection. I will start her on Keflex. She should follow-up with her primary care provider and OB next week for further management. Departure Impression Primary Impression: Infection of obstetric surgical wound Qualified Codes: O86.01 - Infection of obstetric surgical wound, superficial incisional site Disposition: HOME, SELF-CARE Condition: Stable Departure-Patient Inst. Referrals: LASHAUN QUINN MD (PCP/Family) Primary Care Physician Patient Instructions: Wound Care, How to Prevent Surgical Site Infections Add. Discharge Instructions: Emergency department focuses on treating and ruling out life-threatening diseases. Whenever possible, a diagnosis is given. However, most patients are given an impression based on their history, physical exam, and workup during your brief time in the ER. Information about probable diagnosis and other educational material has been provided. Please take the time to read and understand this information. It is very important that you follow up with a physician as discussed during the visit today. Failure to adhere to your follow-up instructions may lead to severe disability, injury, or so please make sure to keep your appointments or obtain one as requested. Please keep in mind the emergency department is not designed to your primary care or "family doctor" and nonurgent issues are best evaluated by an outpatient physician All discharge instructions reviewed with patient and/or family. Voiced understanding. Scripts Cephalexin (Keflex) 500 Mg Capsule 500 MG PO BID for 7 Days, #14 CAP Prov: DEBBIE HERNANDEZ DO 12/20/19 DEBBIE HERNANDEZ DO Dec 20, 2019 15:37
[2019-12-20 15:48] LABS: BASOPHILS % (AUTO) 1 % (0-10); EOSINOPHILS # (AUTO) 0.1 10^3/uL (0.0-0.3); EOSINOPHILS % (AUTO) 2 % (0-10); HEMATOCRIT 37 % (35-52); HEMOGLOBIN 12.2 G/DL (11.5-16.0); LYMPHOCYTES # (AUTO) 2.9 X 10^3 (1.0-4.0); LYMPHOCYTES % (AUTO) 42 % (12-44); MEAN CORPUSCULAR HEMOGLOBIN 24 PG (25-34); MEAN CORPUSCULAR HGB CONC 33 G/DL (32-36); MEAN CORPUSCULAR VOLUME 73 FL (80-99); MEAN PLATELET VOLUME 8.4 FL (7.4-10.4); MONOCYTES # (AUTO) 0.5 X 10^3 (0.0-1.0); MONOCYTES % (AUTO) 7 % (0-12); NEUTROPHILS # (AUTO) 3.4 X 10^3 (1.8-7.8); NEUTROPHILS % (AUTO) 49 % (42-75); PLATELET COUNT 471 10^3/uL (130-400); RED CELL DISTRIBUTION WIDTH 20.1 % (10.0-14.5)
[2019-12-20 16:05] LABS: ALANINE AMINOTRANSFERASE 52 U/L (0-55); ALBUMIN 4.2 GM/DL (3.2-4.5); ALKALINE PHOSPHATASE 98 U/L (40-136); BILIRUBIN,TOTAL 0.3 MG/DL (0.1-1.0); BUN/CREATININE RATIO 8; CARBON DIOXIDE 23 MMOL/L (21-32); CHLORIDE 105 MMOL/L (98-107); CREATININE SERUM 0.77 MG/DL (0.60-1.30); GFR ESTIMATED > 60; GLUCOSE 118 MG/DL (70-105); POTASSIUM 3.3 MMOL/L (3.6-5.0); SODIUM 139 MMOL/L (135-145); TOTAL PROTEIN 7.2 GM/DL (6.4-8.2)
[2019-12-20] MEDS ORDERED: NS 100 ML (IVPB) BAG IV ONE (16:30)
[2019-12-20] MEDS ORDERED: HOLD METFORMIN - RECEIVED CONTRAST 20 ML VIAL IV SCH (16:30)
[2019-12-20] MEDS ORDERED: CATHETER FLUSH 10 ML SYR IV PRN (16:30)
[2019-12-20] MEDS ORDERED: IOHEXOL 350 MG/ML 100 ML (OMNIPAQUE 350) VIAL IV ONE (16:30)
--- NOTE | 2019-12-20 17:04 | Diagnostic Imaging Report ---
CT ABDOMEN/PELVIS W TECHNIQUE: Multiple contiguous axial images were obtained through the abdomen and pelvis after administration of intravenous contrast. All CT scans use one or more of the following dose optimizing techniques: Automated exposure control, MA and/or KvP adjustment based on a patient size and exam type, or iterative reconstruction. INDICATION: Status post with bleeding from the incision site. COMPARISON: None available. FINDINGS: Lower chest: 12/16/2018. Peritoneum: No free intraperitoneal air or fluid. Liver and biliary system: The liver is normal. Gallbladder is contracted without radiopaque stones. No biliary duct dilatation. Spleen and Pancreas: Spleen is normal. The pancreas enhances normally without mass lesion or peripancreatic inflammatory changes. Adrenals: Normal. tract: The kidneys enhance normally without suspicious mass or obstruction. Urinary bladder is distended without wall thickening. Uterus has no features of active bleeding. No ovarian mass. GI tract: Stomach is partially filled with fluid and air. No bowel obstruction. No pericolonic inflammatory changes. Normal appendix. Vasculature and Lymph nodes: Normal caliber aorta. No abdominal or pelvic lymphadenopathy. Musculoskeletal: There is no loculated fluid collection within the abdominal wall at the site of section. No abdominal wall hematoma. No worrisome focal osseous lesions. IMPRESSION: 1. No abscess or hematoma at the lower abdominal wall incision site. 2. No intraperitoneal hemorrhage. Dictated by: Dictated on workstation # [id number]
[2019-12-20] MEDS ORDERED: CEPH-507 PO (17:21)
[2019-12-20 17:47] VITALS: BP 115/76
== END 2019-12-20 17:44 | disposition home or self-care (01) ==
LOC: EDUNIT# 14:36 → ER 14:38
DX: O86.01 Infection of obstetric surgical wound, superficial incisional site (principal); Z87.891 Personal history of nicotine dependence; Z82.49 Family history of ischemic heart disease and other diseases of the circulatory system
CPT/HCPCS: 36415; 74177; 80053; 83605; 85025

== ENCOUNTER 2022-04-14 19:03 | Emergency (ER) | payer SELFPAY ==
[~2022-04-14] VITALS: Ht 160 cm; Wt 80.0 kg
[~2022-04-14 19:03] MED LIST changes: +CYCL10TA25 PO; -CYCL10TA9 PO; -HYDR-3062 PO; -OMEP40CA27 PO; +OMEP40CA6 PO
[2022-04-14] MEDS ORDERED: LACTATED RINGERS 1,000 ML IV ONE ×2 (19:12→19:15)
[2022-04-14] MEDS ORDERED: meTOproloL SUCCINATE 50 MG (TOPROL XL) TAB PO SCH (19:15)
[2022-04-14] MEDS ORDERED: NITROGLYCERIN 0.4 MG SL TABS BTL 25'S SL PRN (19:15)
[2022-04-14] MEDS ORDERED: ASPIRIN 81 MG CHEW (CHILDREN'S ASA) PO ONE ×2 (19:15)
[2022-04-14 19:25] LABS: BASOPHILS # (AUTO) 0.1 10^3/uL (0.0-0.1); BASOPHILS % (AUTO) 1 % (0-10); EOSINOPHILS # (AUTO) 0.6 10^3/uL (0.0-0.3); EOSINOPHILS % (AUTO) 7 % (0-10); HEMATOCRIT 41 % (35-52); HEMOGLOBIN 13.9 g/dL (11.5-16.0); LYMPHOCYTES # (AUTO) 3.6 10^3/uL (1.0-4.0); LYMPHOCYTES % (AUTO) 39 % (12-44); MEAN CORPUSCULAR HEMOGLOBIN 28 pg (25-34); MEAN CORPUSCULAR HGB CONC 34 g/dL (32-36); MEAN CORPUSCULAR VOLUME 82 fL (80-99); MEAN PLATELET VOLUME 8.5 fL (9.0-12.2); MONOCYTES # (AUTO) 0.3 10^3/uL (0.0-1.0); MONOCYTES % (AUTO) 3 % (0-12); NEUTROPHILS # (AUTO) 4.6 10^3/uL (1.8-7.8); NEUTROPHILS % (AUTO) 51 % (42-75); PLATELET COUNT 429 10^3/uL (130-400); WHITE BLOOD COUNT 9.2 10^3/uL (4.3-11.0)
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
--- NOTE | 2022-04-14 19:40 | Diagnostic Imaging Report ---
INDICATION: Chest pain EXAMINATION: Chest 04/14/2022 COMPARISON: 06/06/2018 FINDINGS: The cardiomediastinal silhouette is unremarkable. The pulmonary vasculature is within normal limits. The lungs and pleural spaces are clear. IMPRESSION: No evidence of an acute cardiopulmonary process. Dictated by: Dictated on workstation # [id number]
[2022-04-14 19:43] LABS: FIBRIN DEGRADATION PRODUCTS 0.33 UG/ML (0.00-0.49); INR 0.9 (0.8-1.4); PROTHROMBIN TIME PATIENT 12.5 SEC (12.2-14.7)
[2022-04-14 19:48] LABS: ALANINE AMINOTRANSFERASE 28 U/L (0-55); ALKALINE PHOSPHATASE 76 U/L (40-136); BILIRUBIN,TOTAL 0.4 MG/DL (0.1-1.0); BUN/CREATININE RATIO 11; CALCIUM 9.2 MG/DL (8.5-10.1); CARBON DIOXIDE 21 MMOL/L (21-32); CHLORIDE 106 MMOL/L (98-107); CREATINE KINASE 199 U/L (29-168); CREATININE SERUM 0.83 MG/DL (0.60-1.30); GFR ESTIMATED 94; GLUCOSE 134 MG/DL (70-105); MAGNESIUM 1.9 MG/DL (1.6-2.4); POTASSIUM 3.1 MMOL/L (3.6-5.0); SODIUM 140 MMOL/L (135-145); TOTAL PROTEIN 6.9 GM/DL (6.4-8.2)
[2022-04-14 20:07] LABS: BILIRUBIN,URINE NEGATIVE (NEGATIVE); CLARITY,URINE SL CLOUDY; COLOR,URINE YELLOW; GLUCOSE, URINE (UA) NEGATIVE (NEGATIVE); KETONES,URINE NEGATIVE (NEGATIVE); LEUKOCYTE ESTERASE ,URINE NEGATIVE (NEGATIVE); NITRITE,URINE NEGATIVE (NEGATIVE); PROTEIN,URINE NEGATIVE (NEGATIVE)
[2022-04-14 20:07] LABS: CREATINE KINASE MB 2.8 NG/ML (<6.6); TSH (THYROID ANALYZER) 1.78 UIU/ML (0.35-4.94)
[2022-04-14 20:20] LABS: AMPHETAMINE SCREEN, URINE NEGATIVE (NEGATIVE); BARBITURATE SCREEN URINE NEGATIVE (NEGATIVE); BENZODIAZEPINES SCREEN URINE NEGATIVE (NEGATIVE); CANNABINOID SCREEN, URINE NEGATIVE (NEGATIVE); COCAINE SCREEN URINE NEGATIVE (NEGATIVE); METHADONE STAT NEGATIVE (NEGATIVE); OPIATE SCREEN URINE NEGATIVE (NEGATIVE); OXYCODONE STAT NEGATIVE (NEGATIVE); PROPOXYPHENE STAT NEGATIVE (NEGATIVE); TRICYCLIC ANTIDEPRESSANTS SCRE NEGATIVE (NEGATIVE)
[2022-04-14] MEDS ORDERED: METO-351 PO (20:29)
[2022-04-14] MEDS ORDERED: KCL 10 MEQ TAB (MICRO K) PO ONE (20:30)
[2022-04-14 20:47] VITALS: BP 112/85
[2022-04-14 20:48] LABS: BACTERIA,URINE MODERATE /HPF; SQUAMOUS EPITHELIAL CELL,UR 0-2 /HPF; WBC,URINE 0-2 /HPF
== END 2022-04-14 20:47 | disposition home or self-care (01) ==
LOC: EDUNIT# 19:04 → ER 19:07
DX: I47.1 Supraventricular tachycardia (principal); F41.9 Anxiety disorder, unspecified; E87.6 Hypokalemia; F17.290 Nicotine dependence, other tobacco product, uncomplicated; Z20.822 Contact with and (suspected) exposure to COVID-19; Z28.310 Unvaccinated for COVID-19
CPT/HCPCS: 36415; 71045; 80053; 80306; 81000; 82550; 82553; 83735; 83874; 83880; 84443; 84484; 84703; 85025; 85379; 85610; 85730; 87088; 87636; 93005; 93041

== ENCOUNTER 2022-10-06 19:49 | Emergency (ER) | payer OTHER ==
[~2022-10-06 19:49] MED LIST changes: +METO-351 PO
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
[2022-10-06] MEDS ORDERED: CYCL5TAB PO (20:47)
[2022-10-06 20:54] VITALS: BP 128/71
== END 2022-10-06 20:59 | disposition home or self-care (01) ==
LOC: EDUNIT# 19:49 → ER 19:50
DX: M54.50 Low back pain, unspecified (principal); M25.562 Pain in left knee; M25.561 Pain in right knee; R07.89 Other chest pain; V43.52XA Car driver injured in collision with other type car in traffic accident, initial encounter; Y92.410 Unspecified street and highway as the place of occurrence of the external cause
CPT/HCPCS: 71045; 72125; 72131; 73562

== ENCOUNTER 2022-12-13 18:57 | Emergency (ER) | payer OTHER ==
[~2022-12-13] VITALS: Ht 160 cm; Wt 84.8 kg
[~2022-12-13 18:57] MED LIST changes: +CYCL5TAB PO
[2022-12-13] MEDS ORDERED: HYDROcodone/APAP 5 MG/325 MG (LORTAB) TAB PO ONE (19:45)
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
[2022-12-13 20:01] LABS: BASOPHILS # (AUTO) 0.1 10^3/uL (0.0-0.1); BASOPHILS % (AUTO) 1 % (0-10); EOSINOPHILS # (AUTO) 0.7 10^3/uL (0.0-0.3); EOSINOPHILS % (AUTO) 7 % (0-10); HEMATOCRIT 40 % (35-52); HEMOGLOBIN 13.7 g/dL (11.5-16.0); LYMPHOCYTES % (AUTO) 39 % (12-44); MEAN CORPUSCULAR HEMOGLOBIN 28 pg (25-34); MEAN CORPUSCULAR HGB CONC 35 g/dL (32-36); MEAN CORPUSCULAR VOLUME 82 fL (80-99); MEAN PLATELET VOLUME 8.4 fL (9.0-12.2); MONOCYTES # (AUTO) 0.6 10^3/uL (0.0-1.0); MONOCYTES % (AUTO) 6 % (0-12); NEUTROPHILS # (AUTO) 4.8 10^3/uL (1.8-7.8); NEUTROPHILS % (AUTO) 47 % (42-75); PLATELET COUNT 431 10^3/uL (130-400); WHITE BLOOD COUNT 10.1 10^3/uL (4.3-11.0)
[2022-12-13 20:38] VITALS: BP 133/87
[2022-12-13] MEDS ORDERED: NAPR-915 PO (20:44)
== END 2022-12-13 20:38 | disposition home or self-care (01) ==
LOC: EDUNIT# 18:57 → ER 18:58
DX: M79.661 Pain in right lower leg (principal); M89.8X7 Other specified disorders of bone, ankle and foot; Z28.310 Unvaccinated for COVID-19
CPT/HCPCS: 36415; 85025; 85379

== ENCOUNTER 2022-12-14 09:49 | Emergency (ER) | payer SELFPAY ==
[~2022-12-14] VITALS: Ht 160 cm; Wt 85.0 kg
[~2022-12-14 09:49] MED LIST changes: +NAPR-915 PO
[2022-12-14 10:09] LABS: BASOPHILS # (AUTO) 0.1 10^3/uL (0.0-0.1); BASOPHILS % (AUTO) 1 % (0-10); EOSINOPHILS # (AUTO) 0.8 10^3/uL (0.0-0.3); EOSINOPHILS % (AUTO) 9 % (0-10); HEMATOCRIT 39 % (35-52); LYMPHOCYTES % (AUTO) 36 % (12-44); MEAN CORPUSCULAR HEMOGLOBIN 29 pg (25-34); MEAN CORPUSCULAR HGB CONC 36 g/dL (32-36); MEAN CORPUSCULAR VOLUME 81 fL (80-99); MEAN PLATELET VOLUME 8.5 fL (9.0-12.2); MONOCYTES # (AUTO) 0.3 10^3/uL (0.0-1.0); MONOCYTES % (AUTO) 4 % (0-12); NEUTROPHILS % (AUTO) 49 % (42-75); PLATELET COUNT 427 10^3/uL (130-400); WHITE BLOOD COUNT 8.2 10^3/uL (4.3-11.0)
[2022-12-14 10:21] LABS: ALBUMIN 4.1 GM/DL (3.2-4.5)
[2022-12-14 10:22] LABS: INR 0.9 (0.8-1.4); POTASSIUM 3.9 MMOL/L (3.6-5.0); PROTHROMBIN TIME PATIENT 12.6 SEC (12.2-14.7)
[2022-12-14 10:23] LABS: CALCIUM 8.9 MG/DL (8.5-10.1)
[2022-12-14 10:24] LABS: TOTAL PROTEIN 7.3 GM/DL (6.4-8.2)
[2022-12-14 10:26] LABS: BILIRUBIN,TOTAL 0.3 MG/DL (0.1-1.0)
[2022-12-14 10:28] LABS: CREATININE SERUM 0.66 MG/DL (0.60-1.30)
[2022-12-14 10:30] LABS: MAGNESIUM 1.9 MG/DL (1.6-2.4)
--- NOTE | 2022-12-14 10:36 | Diagnostic Imaging Report ---
INDICATION: Chest pain. EXAMINATION: Chest 12/14/2022 COMPARISON: 10/06/2022 FINDINGS: The cardiomediastinal silhouette is unremarkable. The pulmonary vasculature is within normal limits. The lungs and pleural spaces are clear. IMPRESSION: No evidence of an acute cardiopulmonary process. Dictated by: Dictated on workstation # [id number]
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
[2022-12-14] MEDS ORDERED: KETOROLAC 30 MG/ML VIAL IVP ONE (11:00)
[2022-12-14] MEDS ORDERED: IOHEXOL 350 MG/ML 100 ML (OMNIPAQUE 350) VIAL IV ONE (11:15)
[2022-12-14] MEDS ORDERED: HOLD METFORMIN - RECEIVED CONTRAST 20 ML VIAL IV SCH (11:15)
[2022-12-14] MEDS ORDERED: NS 100 ML (IVPB) BAG IV ONE (11:15)
--- NOTE | 2022-12-14 11:48 | Diagnostic Imaging Report ---
EXAMINATION: CT chest with intravenous contrast. TECHNIQUE: Multiple contiguous axial images were obtained through the chest after the uneventful administration of intravenous contrast. All CT scans use one or more of the following dose optimizing techniques: automated exposure control, MA and/or KvP adjustment based on patient size and exam type or iterative reconstruction. HISTORY: Chest pain COMPARISON: 12/16/2018 FINDINGS: There is no edema or pneumonia. No pleural effusion. No pneumothorax. No suspicious nodules. There is no axillary or supraclavicular lymphadenopathy. There is no mediastinal lymphadenopathy. Heart size is normal. There are no coronary artery calcifications. No pericardial effusion. Aorta is normal in caliber. Limited views of the upper abdomen are unremarkable. There are no suspicious osseus lesions. IMPRESSION: 1. No acute abnormality in the chest. Dictated by: Dictated on workstation # [id number]
[2022-12-14 12:55] VITALS: BP 133/83
== END 2022-12-14 12:57 | disposition home or self-care (01) ==
LOC: EDUNIT# 09:49 → ER 09:51
DX: R07.89 Other chest pain (principal); M25.561 Pain in right knee; R22.9 Localized swelling, mass and lump, unspecified; Z87.828 Personal history of other (healed) physical injury and trauma
CPT/HCPCS: 36415; 71045; 71260; 80053; 83735; 83874; 84484; 84550; 85025; 85379; 85610; 85652; 85730; 86141; 93005; 93041